=== PATIENT | male | born 1950 | race Caucasian/White ===

== ENCOUNTER 2018-03-10 18:55 | Inpatient (IN) ==
[2018-03-12 08:03] VITALS: BP 120/69
== END 2018-03-12 11:21 | disposition home health service (06) | DRG 948 ==
LOC: N.ED 18:55 → N.EDINP 23:05 → N.5E 23:27
PROVIDERS: ADMIT Internal Medicine; ATTEND Internal Medicine

== ENCOUNTER 2018-04-20 20:18 | Inpatient (IN) ==
[2018-04-20] MEDS ORDERED: ALBUTEROL/IPRATROPIUM 3 ML NEB RESP TX STA (20:48)
[2018-04-20] MEDS ORDERED: METOPROLOL TARTRATE 5 MG/5 ML VIAL IV STA (20:48)
[2018-04-20 21:12] LABS: Basophils % 0.3 % (0.0-0.8); Eosinophils % 0.1 % (0.00-10.9); Hematocrit 43.2 VOL% (42.0-52.0); Hemoglobin 13.9 GM/DL (14.0-18.0); Immature Granulocytes % 0.7 %; Immature Granulocytes Absolute 0.09 #; Lymphocytes # 1.1 10*3/uL (1.4-4.0); Lymphocytes % 8.9 % (21.2-54.2); Mean Corpuscular HGB Conc 32.2 GM/DL (32-36); Mean Corpuscular Hemoglobin 29 PG (27-34); Mean Corpuscular Volume 90.9 FL (87-102); Monocytes # 0.1 10*3/uL (0.11-0.8); Monocytes % 0.6 % (1.7-12.7); Neutrophils # 10.9 10*3/uL (1.4-7.4); Neutrophils % 89.4 % (38.7-73.9); Platelet Count 395 T/CUMM (130-400); Red Blood Count 4.75 MC/CUMM (3.8-5.5); Red Cell Distribution Width 13.6 % (9.3-17.3); White Blood Count 12.2 T/CUMM (4-12)
[2018-04-20 21:22] LABS: PT Patient Result 10.3 SECS; Partial Thromboplastin Time 30.2 SECS (0-40)
[2018-04-20 21:39] LABS: Alanine Aminotransferase 19 U/L (16-61); Albumin 3.5 G/DL (3.4-5.0); Alkaline Phosphatase 75 U/L (45-117); Aspartate Amino Transferase 15 U/L (0-37); Bilirubin,Total < 0.39 MG/DL (0.2-1.0); Blood Urea Nitrogen 31 MG/DL (7-18); Glucose 312 MG/DL (74-106); Osmolality,Calculated 299.3 MOS/KG (273-304); Potassium 4.2 MMOL/L (3.5-5.1); Sodium 141 MMOL/L (136-145); Total Protein 7.7 G/DL (6.4-8.3); Troponin I < 0.015 NG/ML (0.00-0.045)
[2018-04-20] MEDS ORDERED: ACETAMINOPHEN 500 MG TABLET PO PRN (22:07)
[2018-04-20] MEDS ORDERED: GLUCAGON 1 MG VIAL IM PRN (22:07)
[2018-04-20] MEDS ORDERED: DEXTROSE 50% 25 GM/50 ML VIAL IV PRN (22:07)
[2018-04-20] MEDS ORDERED: ONDANSETRON 4 MG/2 ML VIAL IV PRN (22:07)
[2018-04-21] MEDS: ALBUTEROL/IPRATROPIUM 3 ML NEB RESP TX SCH ×4 (00:10→18:52)
[2018-04-21] MEDS: LEVOTHYROXINE 25 MCG TABLET PO SCH (05:04)
[2018-04-21] MEDS: metFORMIN 500 MG TABLET PO SCH ×2 (08:23→16:23)
[2018-04-21] MEDS: INSULIN REGULAR 100 UNIT/ML SUBCUT SCH ×4 (08:23→21:06)
[2018-04-21] MEDS: hydrALAZINE 25 MG TABLET PO SCH ×3 (08:23→16:23)
[2018-04-21] MEDS ORDERED: SODIUM CHLORIDE 0.45% 1,000 ML IV SCH (08:30)
[2018-04-21 08:43] LABS: Basophils % 0.2 % (0.0-0.8); Hematocrit 40.2 VOL% (42.0-52.0); Hemoglobin 12.9 GM/DL (14.0-18.0); Immature Granulocytes % 0.6 %; Immature Granulocytes Absolute 0.07 #; Lymphocytes # 1.4 10*3/uL (1.4-4.0); Lymphocytes % 11.7 % (21.2-54.2); Mean Corpuscular HGB Conc 32.1 GM/DL (32-36); Mean Corpuscular Hemoglobin 29 PG (27-34); Mean Corpuscular Volume 90.7 FL (87-102); Monocytes # 0.4 10*3/uL (0.11-0.8); Monocytes % 3.1 % (1.7-12.7); Neutrophils # 10.1 10*3/uL (1.4-7.4); Neutrophils % 84.4 % (38.7-73.9); Platelet Count 360 T/CUMM (130-400); Red Blood Count 4.43 MC/CUMM (3.8-5.5); Red Cell Distribution Width 13.6 % (9.3-17.3); White Blood Count 11.9 T/CUMM (4-12)
[2018-04-21] MEDS ORDERED: LOSARTAN 25 MG TABLET PO SCH (09:00)
[2018-04-21 09:14] LABS: Calcium 9.2 MG/DL (8.5-10.1); Osmolality,Calculated 295.1 MOS/KG (273-304); Potassium 3.9 MMOL/L (3.5-5.1)
[2018-04-21 09:15] LABS: Risk Ratio 3.7; VLDL CHOLESTEROL 18.6 MG/DL
[2018-04-21] MEDS: INSULIN GLARGINE 100 UNIT/ML SUBCUT SCH (10:19)
[2018-04-21] MEDS: MECLIZINE 25 MG TABLET PO SCH ×2 (10:19→20:38)
[2018-04-21] MEDS: ASPIRIN EC 81 MG TABLET PO SCH (10:20)
[2018-04-21] MEDS ORDERED: hydrALAZINE 20 MG/1 ML VIAL IV PRN (16:47)
[2018-04-21 18:07] LABS: Troponin I < 0.015 NG/ML (0.00-0.045)
[2018-04-21] MEDS: PRAVASTATIN 20 MG TABLET PO SCH (20:38)
[2018-04-21] MEDS: KETOROLAC 15 MG/1 ML VIAL IV SCH (21:48)
[2018-04-22] MEDS: ALBUTEROL/IPRATROPIUM 3 ML NEB RESP TX SCH ×4 (00:25→19:05)
[2018-04-22 04:38] LABS: Basophils % 0.3 % (0.0-0.8); Eosinophils # 0.1 10*3/uL (0.0-0.87); Eosinophils % 0.6 % (0.00-10.9); Hematocrit 35.4 VOL% (42.0-52.0); Hemoglobin 11.8 GM/DL (14.0-18.0); Immature Granulocytes % 0.6 %; Immature Granulocytes Absolute 0.09 #; Lymphocytes # 2.4 10*3/uL (1.4-4.0); Lymphocytes % 16.9 % (21.2-54.2); Mean Corpuscular HGB Conc 33.3 GM/DL (32-36); Mean Corpuscular Hemoglobin 30 PG (27-34); Mean Corpuscular Volume 89.4 FL (87-102); Mean Platelet Volume 10.3 FL (9.6-12.0); Monocytes % 7.3 % (1.7-12.7); Neutrophils # 10.6 10*3/uL (1.4-7.4); Neutrophils % 74.3 % (38.7-73.9); Platelet Count 327 T/CUMM (130-400); Red Blood Count 3.96 MC/CUMM (3.8-5.5); Red Cell Distribution Width 14.1 % (9.3-17.3); White Blood Count 14.3 T/CUMM (4-12)
[2018-04-22 04:57] LABS: Calcium 8.8 MG/DL (8.5-10.1); Osmolality,Calculated 295.8 MOS/KG (273-304); Potassium 3.8 MMOL/L (3.5-5.1)
[2018-04-22] MEDS: LEVOTHYROXINE 25 MCG TABLET PO SCH (05:03)
[2018-04-22] MEDS: KETOROLAC 15 MG/1 ML VIAL IV SCH ×3 (06:12→21:55)
[2018-04-22] MEDS: INSULIN REGULAR 100 UNIT/ML SUBCUT SCH ×4 (08:39→21:55)
[2018-04-22] MEDS ORDERED: REGADENOSON 0.4 MG/5 ML SYRINGE IV ONE (10:54)
[2018-04-22] MEDS: metFORMIN 500 MG TABLET PO SCH ×2 (17:40→18:12)
[2018-04-22] MEDS: INSULIN GLARGINE 100 UNIT/ML SUBCUT SCH (17:40)
[2018-04-22] MEDS: MECLIZINE 25 MG TABLET PO SCH ×2 (17:40→21:54)
[2018-04-22] MEDS: AMOXICILLIN/CLAV 500 MG TABLET PO SCH ×2 (17:40→21:54)
[2018-04-22] MEDS: LOSARTAN 50 MG TABLET PO SCH (18:12)
[2018-04-22] MEDS: LORATADINE 10 MG TABLET PO SCH (18:12)
[2018-04-22] MEDS: ASPIRIN EC 81 MG TABLET PO SCH (18:12)
[2018-04-22] MEDS: predniSONE 10 MG TABLET PO SCH (18:12)
[2018-04-22] MEDS: CHLORTHALIDONE 25 MG TABLET PO SCH (18:12)
[2018-04-22] MEDS: SERTRALINE 25 MG TABLET PO SCH (18:12)
[2018-04-22] MEDS: PRAVASTATIN 20 MG TABLET PO SCH (21:54)
[2018-04-23] MEDS: ALBUTEROL/IPRATROPIUM 3 ML NEB RESP TX SCH ×4 (00:35→19:16)
[2018-04-23 04:15] LABS: Basophils # 0.1 10*3/uL (0.0-0.2); Basophils % 0.4 % (0.0-0.8); Eosinophils # 0.1 10*3/uL (0.0-0.87); Eosinophils % 0.7 % (0.00-10.9); Hemoglobin 12.4 GM/DL (14.0-18.0); Immature Granulocytes Absolute 0.12 #; Lymphocytes # 1.8 10*3/uL (1.4-4.0); Lymphocytes % 14.9 % (21.2-54.2); Mean Corpuscular HGB Conc 31.8 GM/DL (32-36); Mean Corpuscular Hemoglobin 30 PG (27-34); Mean Corpuscular Volume 92.6 FL (87-102); Mean Platelet Volume 10.2 FL (9.6-12.0); Monocytes # 0.7 10*3/uL (0.11-0.8); Monocytes % 5.5 % (1.7-12.7); Neutrophils # 9.2 10*3/uL (1.4-7.4); Neutrophils % 77.5 % (38.7-73.9); Platelet Count 342 T/CUMM (130-400); Red Blood Count 4.21 MC/CUMM (3.8-5.5); Red Cell Distribution Width 14.1 % (9.3-17.3); White Blood Count 11.8 T/CUMM (4-12)
[2018-04-23 04:56] LABS: Calcium 8.8 MG/DL (8.5-10.1); Osmolality,Calculated 294.1 MOS/KG (273-304)
[2018-04-23] MEDS: LEVOTHYROXINE 25 MCG TABLET PO SCH (06:40)
[2018-04-23] MEDS: KETOROLAC 15 MG/1 ML VIAL IV SCH ×3 (06:40→21:31)
[2018-04-23] MEDS ORDERED: hydrALAZINE 10 MG TABLET PO SCH (09:00)
[2018-04-23] MEDS: predniSONE 10 MG TABLET PO SCH (09:28)
[2018-04-23] MEDS: LORATADINE 10 MG TABLET PO SCH (09:28)
[2018-04-23] MEDS: MECLIZINE 25 MG TABLET PO SCH ×2 (09:28→21:30)
[2018-04-23] MEDS: metFORMIN 500 MG TABLET PO SCH ×2 (09:28→17:27)
[2018-04-23] MEDS: LOSARTAN 50 MG TABLET PO SCH (09:29)
[2018-04-23] MEDS: ASPIRIN EC 81 MG TABLET PO SCH (09:29)
[2018-04-23] MEDS: SERTRALINE 25 MG TABLET PO SCH (09:29)
[2018-04-23] MEDS: CHLORTHALIDONE 25 MG TABLET PO SCH (09:29)
[2018-04-23] MEDS: INSULIN GLARGINE 100 UNIT/ML SUBCUT SCH (09:29)
[2018-04-23] MEDS: INSULIN REGULAR 100 UNIT/ML SUBCUT SCH ×4 (09:46→21:34)
[2018-04-23] MEDS: AMOXICILLIN/CLAV 500 MG TABLET PO SCH ×2 (09:47→21:30)
[2018-04-23] MEDS ORDERED: ALUM/MAG/SIMETH/LIDO VISC 1:1 30 ML BOTTLE PO ONE (10:45)
[2018-04-23] MEDS: CARVEDILOL 3.125 MG TABLET PO SCH ×2 (11:43→21:30)
[2018-04-23] MEDS: hydrALAZINE 25 MG TABLET PO SCH ×3 (11:43→21:31)
[2018-04-23] MEDS: PRAVASTATIN 20 MG TABLET PO SCH (21:31)
[2018-04-24] MEDS: ALBUTEROL/IPRATROPIUM 3 ML NEB RESP TX SCH ×3 (02:17→12:15)
[2018-04-24] MEDS: KETOROLAC 15 MG/1 ML VIAL IV SCH ×2 (05:30→14:52)
[2018-04-24] MEDS: LEVOTHYROXINE 25 MCG TABLET PO SCH (05:30)
[2018-04-24 07:05] LABS: Calcium 8.8 MG/DL (8.5-10.1); Potassium 3.6 MMOL/L (3.5-5.1)
[2018-04-24] MEDS ORDERED: FAMOTIDINE 20 MG TABLET PO SCH (09:00)
[2018-04-24] MEDS: MECLIZINE 25 MG TABLET PO SCH (09:11)
[2018-04-24] MEDS: metFORMIN 500 MG TABLET PO SCH (09:11)
[2018-04-24] MEDS: CHLORTHALIDONE 25 MG TABLET PO SCH (09:12)
[2018-04-24] MEDS: ASPIRIN EC 81 MG TABLET PO SCH (09:12)
[2018-04-24] MEDS: SERTRALINE 25 MG TABLET PO SCH (09:12)
[2018-04-24] MEDS: LOSARTAN 50 MG TABLET PO SCH (09:12)
[2018-04-24] MEDS: CARVEDILOL 3.125 MG TABLET PO SCH (09:12)
[2018-04-24] MEDS: INSULIN GLARGINE 100 UNIT/ML SUBCUT SCH (09:12)
[2018-04-24] MEDS: predniSONE 10 MG TABLET PO SCH (09:12)
[2018-04-24] MEDS: hydrALAZINE 25 MG TABLET PO SCH ×2 (09:12→14:52)
[2018-04-24] MEDS: LORATADINE 10 MG TABLET PO SCH (09:18)
[2018-04-24] MEDS: INSULIN REGULAR 100 UNIT/ML SUBCUT SCH ×3 (09:18→15:40)
[2018-04-24] MEDS: AMOXICILLIN/CLAV 500 MG TABLET PO SCH (09:18)
[2018-04-24 16:12] VITALS: BP 165/83
== END 2018-04-24 16:45 | disposition home health service (06) | DRG 313 ==
LOC: N.ED 20:18 → N.EDINP 22:06 → N.TELEN 23:05
PROVIDERS: ADMIT Internal Medicine; ATTEND Internal Medicine

== ENCOUNTER 2018-06-09 13:46 | Inpatient (IN) ==
[2018-06-09] MEDS ORDERED: ONDANSETRON 4 MG/2 ML VIAL IV PRN (14:24)
[2018-06-09] MEDS ORDERED: ACETAMINOPHEN 325 MG TABLET PO PRN (14:24)
[2018-06-09] MEDS ORDERED: traMADol 50 MG TABLET PO PRN (14:29)
[2018-06-09] MEDS ORDERED: MAGNESIUM HYDROXIDE SUSP 30 ML UDCUP PO PRN (14:29)
[2018-06-09] MEDS ORDERED: KETOROLAC 30 MG/1 ML VIAL IV PRN (14:29)
[2018-06-09] MEDS: SODIUM CHLORIDE 0.9% 1,000 ML IV SCH (16:59)
[2018-06-09] MEDS: PIPERACILLIN/TAZOBACTAM 3,375 MG in SODIUM CHLORIDE 0.9% 100 ML IV SCH (16:59)
[2018-06-09 18:32] LABS: Basophils # 0.1 10*3/uL (0.0-0.2); Eosinophils # 0.6 10*3/uL (0.0-0.87); Eosinophils % 5.5 % (0.00-10.9); Hematocrit 40.2 VOL% (42.0-52.0); Immature Granulocytes % 0.4 %; Immature Granulocytes Absolute 0.04 #; Lymphocytes # 2.7 10*3/uL (1.4-4.0); Mean Corpuscular HGB Conc 32.3 GM/DL (32-36); Mean Corpuscular Hemoglobin 29 PG (27-34); Mean Corpuscular Volume 90.3 FL (87-102); Mean Platelet Volume 10.3 FL (9.6-12.0); Monocytes % 9.8 % (1.7-12.7); Neutrophils # 6.2 10*3/uL (1.4-7.4); Neutrophils % 58.3 % (38.7-73.9); Platelet Count 373 T/CUMM (130-400); Red Blood Count 4.45 MC/CUMM (3.8-5.5); Red Cell Distribution Width 13.2 % (9.3-17.3); White Blood Count 10.7 T/CUMM (4-12)
[2018-06-09 18:48] LABS: Apearance,Urine CLEAR (Clear); Bilirubin,Urine Negative (Negative); Blood, Urine Negative (Negative); Glucose,Urine (UA) 150 mg/dL (Negative); Hyaline Casts,Urine 4 /LPF (0-3); Ketones,Urine Negative (Negative); Mucus,Urine Occasional /LPF (Occasional); Nitrite,Urine Negative (Negative); Protein,Urine 100 MG/DL; Urine Color Yellow (Yellow); Urine Specific Gravity 1.017 (1.001-1.035); WBC,Urine <1 /HPF (0-6)
[2018-06-09 19:00] LABS: Alanine Aminotransferase 16 U/L (16-61); Albumin 3.5 G/DL (3.4-5.0); Alkaline Phosphatase 78 U/L (45-117); Aspartate Amino Transferase 11 U/L (0-37); Bilirubin,Total < 0.39 MG/DL (0.2-1.0); Blood Urea Nitrogen 21 MG/DL (7-18); Calcium 8.7 MG/DL (8.5-10.1); Glucose 134 MG/DL (74-106); Potassium 3.3 MMOL/L (3.5-5.1); Sodium 143 MMOL/L (136-145)
[2018-06-09] MEDS: DOCUSATE SODIUM 100 MG CAPSULE PO SCH (21:09)
[2018-06-09] MEDS: ENOXAPARIN 40 MG/0.4 ML SYRINGE SUBCUT SCH (21:09)
[2018-06-09] MEDS: FAMOTIDINE 20 MG TABLET PO SCH (21:09)
[2018-06-09] MEDS: metroNIDAZOLE INJ 250 MG in IV BAG 1 EACH IV SCH (21:09)
[2018-06-09] MEDS ORDERED: POTASSIUM CHLORIDE 20 MEQ TABLET PO ONE (23:41)
[2018-06-09] MEDS ORDERED: ALBUTEROL 2.5 MG/3 ML NEB RESP TX PRN (23:44)
[2018-06-09] MEDS ORDERED: NITROGLYCERIN SL 0.4 MG TABLET SL PRN (23:44)
[2018-06-10] MEDS: PIPERACILLIN/TAZOBACTAM 3,375 MG in SODIUM CHLORIDE 0.9% 100 ML IV SCH ×4 (01:22→23:42)
[2018-06-10] MEDS: SODIUM CHLORIDE 0.9% 1,000 ML IV SCH ×2 (01:24→22:14)
[2018-06-10] MEDS: LEVOTHYROXINE 25 MCG TABLET PO SCH (05:47)
[2018-06-10] MEDS: metroNIDAZOLE INJ 250 MG in IV BAG 1 EACH IV SCH (05:48)
[2018-06-10 06:38] LABS: Basophils # 0.1 10*3/uL (0.0-0.2); Basophils % 1.2 % (0.0-0.8); Eosinophils # 0.7 10*3/uL (0.0-0.87); Eosinophils % 7.3 % (0.00-10.9); Hematocrit 37.5 VOL% (42.0-52.0); Hemoglobin 12.1 GM/DL (14.0-18.0); Immature Granulocytes % 0.4 %; Immature Granulocytes Absolute 0.04 #; Lymphocytes # 3.2 10*3/uL (1.4-4.0); Lymphocytes % 31.7 % (21.2-54.2); Mean Corpuscular HGB Conc 32.3 GM/DL (32-36); Mean Corpuscular Hemoglobin 29 PG (27-34); Mean Corpuscular Volume 90.1 FL (87-102); Mean Platelet Volume 10.1 FL (9.6-12.0); Monocytes % 9.5 % (1.7-12.7); Neutrophils # 5.1 10*3/uL (1.4-7.4); Neutrophils % 49.9 % (38.7-73.9); Platelet Count 337 T/CUMM (130-400); Red Blood Count 4.16 MC/CUMM (3.8-5.5); Red Cell Distribution Width 13.3 % (9.3-17.3); White Blood Count 10.1 T/CUMM (4-12)
[2018-06-10 07:27] LABS: Calcium 8.5 MG/DL (8.5-10.1); Osmolality,Calculated 287.8 MOS/KG (273-304); Potassium 3.4 MMOL/L (3.5-5.1)
[2018-06-10] MEDS: ISOSORBIDE MONONITRATE 30 MG TABLET PO SCH (08:05)
[2018-06-10] MEDS: FAMOTIDINE 20 MG TABLET PO SCH ×2 (08:06→22:13)
[2018-06-10] MEDS: DOCUSATE SODIUM 100 MG CAPSULE PO SCH ×2 (08:06→22:14)
[2018-06-10] MEDS: CHLORTHALIDONE 25 MG TABLET PO SCH (08:06)
[2018-06-10] MEDS: FLUTICASONE/SALMETEROL 250-50 DISKUS 14 DOSE INH SCH ×2 (08:06→22:16)
[2018-06-10] MEDS: CARVEDILOL 3.125 MG TABLET PO SCH ×3 (08:06→22:14)
[2018-06-10] MEDS: hydrALAZINE 25 MG TABLET PO SCH ×4 (08:06→22:14)
[2018-06-10] MEDS: SERTRALINE 25 MG TABLET PO SCH (08:06)
[2018-06-10] MEDS: POTASSIUM CHLORIDE 20 MEQ TABLET PO SCH ×2 (08:10→22:13)
[2018-06-10] MEDS: ASPIRIN EC 81 MG TABLET PO SCH (22:13)
[2018-06-10] MEDS: ENOXAPARIN 40 MG/0.4 ML SYRINGE SUBCUT SCH (22:14)
[2018-06-11] MEDS: LEVOTHYROXINE 25 MCG TABLET PO SCH (06:13)
[2018-06-11] MEDS: SODIUM CHLORIDE 0.9% 1,000 ML IV SCH (06:13)
[2018-06-11 06:59] LABS: Calcium 8.6 MG/DL (8.5-10.1); Osmolality,Calculated 288.7 MOS/KG (273-304); Potassium 3.5 MMOL/L (3.5-5.1)
[2018-06-11] MEDS: POTASSIUM CHLORIDE 20 MEQ TABLET PO SCH ×2 (08:15→20:59)
[2018-06-11] MEDS: hydrALAZINE 25 MG TABLET PO SCH ×3 (08:15→21:00)
[2018-06-11] MEDS: ISOSORBIDE MONONITRATE 30 MG TABLET PO SCH (08:15)
[2018-06-11] MEDS: DOCUSATE SODIUM 100 MG CAPSULE PO SCH ×2 (08:15→21:00)
[2018-06-11] MEDS: CARVEDILOL 3.125 MG TABLET PO SCH ×2 (08:15→21:00)
[2018-06-11] MEDS: PIPERACILLIN/TAZOBACTAM 3,375 MG in SODIUM CHLORIDE 0.9% 100 ML IV SCH ×2 (08:15→15:05)
[2018-06-11] MEDS: SERTRALINE 25 MG TABLET PO SCH (08:15)
[2018-06-11] MEDS: FAMOTIDINE 20 MG TABLET PO SCH ×2 (08:15→20:59)
[2018-06-11] MEDS: CHLORTHALIDONE 25 MG TABLET PO SCH (08:15)
[2018-06-11] MEDS: FLUTICASONE/SALMETEROL 250-50 DISKUS 14 DOSE INH SCH ×2 (08:17→21:00)
[2018-06-11] MEDS: KETOROLAC 30 MG/1 ML VIAL IV SCH ×2 (11:30→17:23)
[2018-06-11] MEDS: ENOXAPARIN 40 MG/0.4 ML SYRINGE SUBCUT SCH (21:00)
[2018-06-11] MEDS: ASPIRIN EC 81 MG TABLET PO SCH (21:00)
[2018-06-12] MEDS: PIPERACILLIN/TAZOBACTAM 3,375 MG in SODIUM CHLORIDE 0.9% 100 ML IV SCH ×3 (01:31→16:35)
[2018-06-12] MEDS: SODIUM CHLORIDE 0.9% 1,000 ML IV SCH ×3 (05:15→17:16)
[2018-06-12] MEDS: KETOROLAC 30 MG/1 ML VIAL IV SCH ×3 (05:16→16:35)
[2018-06-12] MEDS: LEVOTHYROXINE 25 MCG TABLET PO SCH (06:40)
[2018-06-12 06:45] LABS: Calcium 8.8 MG/DL (8.5-10.1); Osmolality,Calculated 288.7 MOS/KG (273-304); Potassium 3.9 MMOL/L (3.5-5.1)
[2018-06-12] MEDS: DOCUSATE SODIUM 100 MG CAPSULE PO SCH (08:36)
[2018-06-12] MEDS: FAMOTIDINE 20 MG TABLET PO SCH (08:36)
[2018-06-12] MEDS: CHLORTHALIDONE 25 MG TABLET PO SCH (08:36)
[2018-06-12] MEDS: SERTRALINE 25 MG TABLET PO SCH (08:37)
[2018-06-12] MEDS: POTASSIUM CHLORIDE 20 MEQ TABLET PO SCH (08:37)
[2018-06-12] MEDS: hydrALAZINE 25 MG TABLET PO SCH ×2 (08:37→17:16)
[2018-06-12] MEDS: ISOSORBIDE MONONITRATE 30 MG TABLET PO SCH (08:37)
[2018-06-12] MEDS: CARVEDILOL 3.125 MG TABLET PO SCH (08:37)
[2018-06-12] MEDS: FLUTICASONE/SALMETEROL 250-50 DISKUS 14 DOSE INH SCH (08:41)
[2018-06-12] MEDS ORDERED: GLUCAGON 1 MG VIAL IM PRN (10:08)
[2018-06-12] MEDS ORDERED: DEXTROSE 50% 25 GM/50 ML VIAL IV PRN (10:08)
[2018-06-12 13:10] VITALS: BP 124/83
== END 2018-06-12 17:12 | disposition home health service (06) | DRG 869 ==
LOC: N.2W 14:39 → N.5E 16:27
PROVIDERS: ADMIT Internal Medicine; ATTEND Internal Medicine

== ENCOUNTER 2020-07-04 21:06 | Inpatient (IN) ==
[2020-07-04] MEDS ORDERED: FUROSEMIDE 40 MG/4 ML VIAL IV STA (21:28)
[2020-07-04] MEDS ORDERED: methylPREDNISolone SOD SUC 125 MG/2 ML VIAL IV STA (21:28)
[2020-07-04] MEDS ORDERED: ONDANSETRON 4 MG/2 ML VIAL IV STA (21:28)
[2020-07-04] MEDS ORDERED: ALBUTEROL NEB SOLN 5 MG/ML 20 ML/BOTTLE CONT NEB SCH (21:30)
[2020-07-04 21:37] LABS: Basophils # 0.1 10*3/uL (0.0-0.2); Eosinophils # 0.9 10*3/uL (0.0-0.87); Eosinophils % 6.3 % (0.00-10.9); Hematocrit 41.2 VOL% (42.0-52.0); Hemoglobin 13.5 GM/DL (14.0-18.0); Immature Granulocytes % 0.5 %; Immature Granulocytes Absolute 0.07 #; Lymphocytes # 2.9 10*3/uL (1.4-4.0); Lymphocytes % 20.3 % (21.2-54.2); Mean Corpuscular HGB Conc 32.8 GM/DL (32-36); Mean Corpuscular Volume 83.9 FL (87-102); Mean Platelet Volume 9.2 FL (9.6-12.0); Monocytes % 7.6 % (1.7-12.7); Neutrophils % 64.3 % (38.7-73.9); Platelet Count 332 T/CUMM (130-400); Red Blood Count 4.91 MC/CUMM (3.8-5.5); Red Cell Distribution Width 14.9 % (9.3-17.3); White Blood Count 14.3 T/CUMM (4-12)
[2020-07-04 21:48] LABS: PT Patient Result 10.6 SECS (9.8-11.9)
[2020-07-04 21:54] LABS: Alanine Aminotransferase 13 U/L (16-61); Albumin 3.6 G/DL (3.4-5.0); Alkaline Phosphatase 69 U/L (45-117); Aspartate Amino Transferase 12 U/L (0-37); Bilirubin,Total < 0.39 MG/DL (0.2-1.0); Blood Urea Nitrogen 19 MG/DL (7-18); Calcium 9.4 MG/DL (8.5-10.1); Estimated Glom Filtration Rate 77 ML/MIN; Glucose 155 MG/DL (74-106); Osmolality,Calculated 279.7 MOS/KG (273-304)
[2020-07-04] MEDS ORDERED: NITROGLYCERIN SL 0.4 MG TABLET SL PRN (23:14)
[2020-07-04] MEDS ORDERED: DEXTROSE 50% 25 GM/50 ML VIAL IV PRN (23:14)
[2020-07-04] MEDS ORDERED: ONDANSETRON 4 MG/2 ML VIAL IV PRN (23:14)
[2020-07-04] MEDS ORDERED: GLUCAGON 1 MG VIAL IM PRN (23:14)
[2020-07-04] MEDS ORDERED: FLUTICASONE/SALMETEROL 250-50 DISKUS 14 DOSE INH PRN (23:14)
[2020-07-04] MEDS ORDERED: MORPHINE 4 MG/1 ML VIAL IV PRN (23:14)
[2020-07-04] MEDS ORDERED: ALBUTEROL 2.5 MG/3 ML NEB RESP TX PRN (23:14)
[2020-07-04] MEDS ORDERED: ACETAMINOPHEN 325 MG TABLET ONE ×2 (23:17)
[2020-07-04] MEDS: ACETAMINOPHEN 325 MG TABLET PO PRN (23:20)
[2020-07-04] MEDS: ALBUTEROL/IPRATROPIUM 3 ML NEB RESP TX SCH (23:45)
[2020-07-05] MEDS: INSULIN REGULAR 100 UNIT/ML SUBCUT SCH ×5 (00:19→23:50)
[2020-07-05] MEDS: cefTRIAXone 1,000 MG in SYRINGE 1 EACH IV SCH ×2 (00:19→23:50)
[2020-07-05] MEDS: SODIUM CHLORIDE 0.9% 1,000 ML IV SCH ×2 (00:20→14:56)
[2020-07-05] MEDS: methylPREDNISolone SOD SUC 40 MG/1 ML VIAL IV SCH ×3 (05:22→21:55)
[2020-07-05] MEDS: ALBUTEROL/IPRATROPIUM 3 ML NEB RESP TX SCH ×6 (06:03→23:28)
[2020-07-05 06:15] LABS: Basophils % 0.3 % (0.0-0.8); Eosinophils % 0.1 % (0.00-10.9); Hematocrit 39.8 VOL% (42.0-52.0); Hemoglobin 12.7 GM/DL (14.0-18.0); Immature Granulocytes % 0.5 %; Immature Granulocytes Absolute 0.05 #; Lymphocytes % 10.3 % (21.2-54.2); Mean Corpuscular HGB Conc 31.9 GM/DL (32-36); Mean Corpuscular Volume 84.5 FL (87-102); Mean Platelet Volume 9.7 FL (9.6-12.0); Monocytes % 0.6 % (1.7-12.7); Neutrophils % 88.2 % (38.7-73.9); Platelet Count 289 T/CUMM (130-400); Red Blood Count 4.71 MC/CUMM (3.8-5.5); Red Cell Distribution Width 14.7 % (9.3-17.3); White Blood Count 9.8 T/CUMM (4-12)
[2020-07-05 06:39] LABS: Alanine Aminotransferase 11 U/L (16-61); Albumin 3.3 G/DL (3.4-5.0); Alkaline Phosphatase 64 U/L (45-117); Aspartate Amino Transferase 10 U/L (0-37); Bilirubin,Total < 0.39 MG/DL (0.2-1.0); Blood Urea Nitrogen 23 MG/DL (7-18); Calcium 9.4 MG/DL (8.5-10.1); Estimated Glom Filtration Rate 63 ML/MIN; Glucose 219 MG/DL (74-106); Osmolality,Calculated 287.5 MOS/KG (273-304); Total Protein 7.6 G/DL (6.4-8.3)
[2020-07-05] MEDS ORDERED: carvediloL 3.125 MG TABLET PO SCH (08:00)
[2020-07-05] MEDS ORDERED: metFORMIN 500 MG TABLET PO SCH (09:00)
[2020-07-05] MEDS ORDERED: NON-FORMULARY MEDICATION (Omeprazole 20 MG capsule,delayed release(DR/EC)) PO SCH (09:00)
[2020-07-05] MEDS: DOCUSATE SODIUM 100 MG CAPSULE PO SCH ×2 (09:15→21:54)
[2020-07-05] MEDS: GLIMEPIRIDE 2 MG TABLET PO SCH (09:15)
[2020-07-05] MEDS: MAGNESIUM OXIDE 400 MG TABLET PO SCH ×2 (09:16→21:54)
[2020-07-05] MEDS: ISOSORBIDE MONONITRATE 30 MG TABLET PO SCH (09:16)
[2020-07-05] MEDS: PANTOPRAZOLE 40 MG VIAL IV SCH (09:16)
[2020-07-05] MEDS: CLOPIDOGREL 75 MG TABLET PO SCH (09:16)
[2020-07-05] MEDS: ENOXAPARIN 40 MG/0.4 ML SYRINGE SUBCUT SCH (09:16)
[2020-07-05] MEDS ORDERED: KETOROLAC 15 MG/1 ML VIAL IV SCH (14:41)
[2020-07-05 14:58] LABS: Troponin I < 0.015 NG/ML (0.00-0.045)
[2020-07-05] MEDS ORDERED: MAGNESIUM SULF RIDER 1 GM in PREMIX 1 EACH IV ONE (15:00)
[2020-07-05] MEDS: KETOROLAC 15 MG/1 ML VIAL IV SCH (17:42)
[2020-07-05] MEDS ORDERED: diphenhydrAMINE CAP 25 MG CAPSULE PO ONE (18:04)
[2020-07-05] MEDS ORDERED: MAGNESIUM SULF RIDER 2 GM in PREMIX 1 EACH IV PRN (18:04)
[2020-07-05] MEDS ORDERED: DIAZEPAM 5 MG TABLET PO ONE (18:04)
[2020-07-05] MEDS ORDERED: POTASSIUM CHLORIDE RIDER 10 MEQ in PREMIX 1 EACH IV PRN (18:04)
[2020-07-05] MEDS ORDERED: SIMVASTATIN 10 MG TABLET PO SCH (21:00)
[2020-07-05] MEDS: ASPIRIN EC 81 MG TABLET PO SCH (21:54)
[2020-07-05] MEDS: LEVOTHYROXINE 50 MCG TABLET PO SCH (21:54)
[2020-07-06] MEDS: KETOROLAC 15 MG/1 ML VIAL IV SCH ×3 (02:24→17:47)
[2020-07-06] MEDS: ALBUTEROL/IPRATROPIUM 3 ML NEB RESP TX SCH ×6 (03:10→23:58)
[2020-07-06] MEDS: SODIUM CHLORIDE 0.9% 1,000 ML IV SCH ×2 (05:05→18:12)
[2020-07-06] MEDS: INSULIN REGULAR 100 UNIT/ML SUBCUT SCH ×3 (06:30→17:45)
[2020-07-06] MEDS: methylPREDNISolone SOD SUC 40 MG/1 ML VIAL IV SCH ×3 (06:31→21:24)
[2020-07-06] MEDS ORDERED: ceFAZolin 1,000 MG in SYRINGE 1 EACH IV ONE (06:42)
[2020-07-06] MEDS ORDERED: ceFAZolin 1,000 MG VIAL IRRIG ONE (06:42)
[2020-07-06 06:45] LABS: Hematocrit 40.3 VOL% (42.0-52.0); Hemoglobin 12.7 GM/DL (14.0-18.0); Immature Granulocytes % 0.6 %; Immature Granulocytes Absolute 0.12 #; Lymphocytes # 1.4 10*3/uL (1.4-4.0); Lymphocytes % 6.7 % (21.2-54.2); Mean Corpuscular HGB Conc 31.5 GM/DL (32-36); Mean Corpuscular Volume 84.7 FL (87-102); Mean Platelet Volume 9.8 FL (9.6-12.0); Monocytes % 4.3 % (1.7-12.7); Neutrophils % 88.4 % (38.7-73.9); Platelet Count 351 T/CUMM (130-400); Red Blood Count 4.76 MC/CUMM (3.8-5.5); Red Cell Distribution Width 15.2 % (9.3-17.3); White Blood Count 20.2 T/CUMM (4-12)
[2020-07-06 07:04] LABS: Band Neutrophils 1 % (0-10); Hypochromasia 1+; Lymphocytes 7 % (20-55); Microcytosis 1+; Ovalocytes Slight; Platelet Estimate Adequate; Segmented Neutrophils 91 % (50-85); Total Cells Counted 100
[2020-07-06 07:11] LABS: Calcium 9.1 MG/DL (8.5-10.1); Osmolality,Calculated 289.5 MOS/KG (273-304)
[2020-07-06 07:13] LABS: Osmolality,Calculated 291.4 MOS/KG (273-304)
[2020-07-06] MEDS ORDERED: DIAZEPAM 5 MG TABLET PO ONE (07:55)
[2020-07-06] MEDS ORDERED: diphenhydrAMINE CAP 25 MG CAPSULE PO ONE (07:55)
[2020-07-06] MEDS ORDERED: LIDOCAINE 1% 20 ML VIAL ONE (08:57)
[2020-07-06] MEDS ORDERED: HEPARIN/NACL 0.9% 2 UNITS/ML 1,000 ML IV ONE (08:57)
[2020-07-06] MEDS ORDERED: MIDAZOLAM 2 MG/2 ML VIAL ONE ×3 (09:13→10:16)
[2020-07-06] MEDS ORDERED: fentaNYL 100 MCG/2 ML VIAL ONE (09:13)
[2020-07-06] MEDS: LOSARTAN 25 MG TABLET PO SCH (09:17)
[2020-07-06] MEDS: GLIMEPIRIDE 2 MG TABLET PO SCH (09:17)
[2020-07-06] MEDS: DOCUSATE SODIUM 100 MG CAPSULE PO SCH ×2 (09:17→21:26)
[2020-07-06] MEDS: PANTOPRAZOLE 40 MG VIAL IV SCH (09:18)
[2020-07-06] MEDS: CLOPIDOGREL 75 MG TABLET PO SCH (09:18)
[2020-07-06] MEDS: ISOSORBIDE MONONITRATE 30 MG TABLET PO SCH (09:18)
[2020-07-06] MEDS: MAGNESIUM OXIDE 400 MG TABLET PO SCH ×2 (09:18→21:26)
[2020-07-06] MEDS ORDERED: HEPARIN 5,000 UNIT/1 ML VIAL ONE (09:45)
[2020-07-06] MEDS: ENOXAPARIN 40 MG/0.4 ML SYRINGE SUBCUT SCH (10:03)
[2020-07-06] MEDS ORDERED: NITROGLYCERIN DRIP 50 MG/250 ML BOTTLE IV ONE (10:05)
[2020-07-06] MEDS ORDERED: hydrALAZINE 20 MG/1 ML VIAL ONE ×2 (10:11→10:53)
[2020-07-06] MEDS ORDERED: ceFAZolin 1,000 MG VIAL ONE (10:27)
[2020-07-06] MEDS ORDERED: HEPARIN/NACL 0.9% 2 UNITS/ML 500 ML IV ONE (10:35)
[2020-07-06] MEDS ORDERED: HYDROmorphone 2 MG/1 ML VIAL ONE (10:49)
[2020-07-06] MEDS ORDERED: CLOPIDOGREL 300 MG TABLET ONE (10:58)
[2020-07-06] MEDS ORDERED: ZALEPLON 5 MG CAPSULE PO PRN (11:09)
[2020-07-06] MEDS: ROSUVASTATIN 20 MG TABLET PO SCH (21:26)
[2020-07-06] MEDS: LEVOTHYROXINE 50 MCG TABLET PO SCH (21:26)
[2020-07-06] MEDS: ASPIRIN EC 81 MG TABLET PO SCH (21:26)
[2020-07-06] MEDS: cefTRIAXone 1,000 MG in SYRINGE 1 EACH IV SCH (23:15)
[2020-07-07] MEDS: KETOROLAC 15 MG/1 ML VIAL IV SCH (01:20)
[2020-07-07] MEDS: INSULIN REGULAR 100 UNIT/ML SUBCUT SCH ×4 (01:20→19:10)
[2020-07-07] MEDS: ALBUTEROL/IPRATROPIUM 3 ML NEB RESP TX SCH ×5 (03:40→19:25)
[2020-07-07 05:54] LABS: Basophils % 0.1 % (0.0-0.8); Hematocrit 34.2 VOL% (42.0-52.0); Hemoglobin 10.8 GM/DL (14.0-18.0); Immature Granulocytes % 0.8 %; Immature Granulocytes Absolute 0.11 #; Lymphocytes # 1.1 10*3/uL (1.4-4.0); Lymphocytes % 7.7 % (21.2-54.2); Mean Corpuscular HGB Conc 31.6 GM/DL (32-36); Mean Corpuscular Volume 85.7 FL (87-102); Mean Platelet Volume 9.9 FL (9.6-12.0); Monocytes % 5.5 % (1.7-12.7); Neutrophils % 85.9 % (38.7-73.9); Platelet Count 276 T/CUMM (130-400); Red Blood Count 3.99 MC/CUMM (3.8-5.5); Red Cell Distribution Width 15.4 % (9.3-17.3); White Blood Count 13.9 T/CUMM (4-12)
[2020-07-07 06:11] LABS: Calcium 8.2 MG/DL (8.5-10.1)
[2020-07-07] MEDS: methylPREDNISolone SOD SUC 40 MG/1 ML VIAL IV SCH ×3 (06:12→21:02)
[2020-07-07] MEDS: SODIUM CHLORIDE 0.9% 1,000 ML IV SCH ×2 (06:53→21:06)
[2020-07-07] MEDS: CLOPIDOGREL 75 MG TABLET PO SCH (08:37)
[2020-07-07] MEDS: LOSARTAN 25 MG TABLET PO SCH (08:37)
[2020-07-07] MEDS: carvediloL 3.125 MG TABLET PO SCH ×2 (08:37→21:03)
[2020-07-07] MEDS: ISOSORBIDE MONONITRATE 30 MG TABLET PO SCH (08:37)
[2020-07-07] MEDS: MAGNESIUM OXIDE 400 MG TABLET PO SCH ×2 (08:37→21:03)
[2020-07-07] MEDS: DOCUSATE SODIUM 100 MG CAPSULE PO SCH ×2 (08:37→21:03)
[2020-07-07] MEDS: PANTOPRAZOLE 40 MG VIAL IV SCH (08:38)
[2020-07-07] MEDS: ENOXAPARIN 40 MG/0.4 ML SYRINGE SUBCUT SCH (08:38)
[2020-07-07] MEDS: GLIMEPIRIDE 2 MG TABLET PO SCH (08:41)
[2020-07-07] MEDS: LEVOTHYROXINE 50 MCG TABLET PO SCH (21:03)
[2020-07-07] MEDS: ASPIRIN EC 81 MG TABLET PO SCH (21:03)
[2020-07-07] MEDS: ROSUVASTATIN 20 MG TABLET PO SCH (21:03)
[2020-07-08] MEDS: cefTRIAXone 1,000 MG in SYRINGE 1 EACH IV SCH ×3 (00:14→22:43)
[2020-07-08] MEDS: INSULIN REGULAR 100 UNIT/ML SUBCUT SCH ×4 (00:33→17:20)
[2020-07-08] MEDS: ALBUTEROL/IPRATROPIUM 3 ML NEB RESP TX SCH ×6 (03:00→23:44)
[2020-07-08 05:16] LABS: Basophils % 0.1 % (0.0-0.8); Hematocrit 32.7 VOL% (42.0-52.0); Hemoglobin 10.3 GM/DL (14.0-18.0); Immature Granulocytes % 0.9 %; Immature Granulocytes Absolute 0.09 #; Lymphocytes # 1.1 10*3/uL (1.4-4.0); Lymphocytes % 10.4 % (21.2-54.2); Mean Corpuscular HGB Conc 31.5 GM/DL (32-36); Mean Corpuscular Volume 85.6 FL (87-102); Mean Platelet Volume 9.9 FL (9.6-12.0); Monocytes % 5.9 % (1.7-12.7); Neutrophils % 82.7 % (38.7-73.9); Platelet Count 250 T/CUMM (130-400); Red Blood Count 3.82 MC/CUMM (3.8-5.5); Red Cell Distribution Width 15.6 % (9.3-17.3); White Blood Count 10.5 T/CUMM (4-12)
[2020-07-08] MEDS: methylPREDNISolone SOD SUC 40 MG/1 ML VIAL IV SCH ×3 (05:45→21:30)
[2020-07-08 06:00] LABS: Calcium 7.8 MG/DL (8.5-10.1); Osmolality,Calculated 294.8 MOS/KG (273-304)
[2020-07-08] MEDS: carvediloL 3.125 MG TABLET PO SCH ×2 (09:21→21:30)
[2020-07-08] MEDS: CLOPIDOGREL 75 MG TABLET PO SCH (09:22)
[2020-07-08] MEDS: MAGNESIUM OXIDE 400 MG TABLET PO SCH ×2 (09:22→21:30)
[2020-07-08] MEDS: ISOSORBIDE MONONITRATE 30 MG TABLET PO SCH (09:22)
[2020-07-08] MEDS: GLIMEPIRIDE 2 MG TABLET PO SCH (09:24)
[2020-07-08] MEDS: PANTOPRAZOLE 40 MG VIAL IV SCH (09:25)
[2020-07-08] MEDS: LOSARTAN 25 MG TABLET PO SCH (09:25)
[2020-07-08] MEDS: DOCUSATE SODIUM 100 MG CAPSULE PO SCH ×2 (09:25→21:30)
[2020-07-08] MEDS: ENOXAPARIN 40 MG/0.4 ML SYRINGE SUBCUT SCH (09:28)
[2020-07-08] MEDS: DEXTROMETHORPHAN ER 6 MG/ML 90 ML/BOTTLE PO SCH ×2 (11:36→21:30)
[2020-07-08] MEDS: SODIUM CHLORIDE 0.9% 1,000 ML IV SCH (11:42)
[2020-07-08] MEDS: hydrALAZINE 20 MG/1 ML VIAL IV PRN ×2 (12:07→18:51)
[2020-07-08] MEDS: ACETAMINOPHEN 325 MG TABLET PO PRN (13:11)
[2020-07-08] MEDS ORDERED: KETOROLAC 15 MG/1 ML VIAL IV ONE (14:31)
[2020-07-08] MEDS: LEVOTHYROXINE 50 MCG TABLET PO SCH (21:30)
[2020-07-08] MEDS: ASPIRIN EC 81 MG TABLET PO SCH (21:31)
[2020-07-08] MEDS: ROSUVASTATIN 20 MG TABLET PO SCH (21:31)
[2020-07-09] MEDS: SODIUM CHLORIDE 0.9% 1,000 ML IV SCH (00:15)
[2020-07-09] MEDS: hydrALAZINE 20 MG/1 ML VIAL IV PRN (00:30)
[2020-07-09] MEDS: INSULIN REGULAR 100 UNIT/ML SUBCUT SCH ×4 (00:45→18:31)
[2020-07-09] MEDS: ALBUTEROL/IPRATROPIUM 3 ML NEB RESP TX SCH ×5 (04:33→19:01)
[2020-07-09] MEDS: methylPREDNISolone SOD SUC 40 MG/1 ML VIAL IV SCH ×3 (07:08→21:30)
[2020-07-09] MEDS: LOSARTAN 25 MG TABLET PO SCH (09:38)
[2020-07-09] MEDS: MAGNESIUM OXIDE 400 MG TABLET PO SCH ×2 (09:38→21:04)
[2020-07-09] MEDS: ISOSORBIDE MONONITRATE 30 MG TABLET PO SCH (09:38)
[2020-07-09] MEDS: GLIMEPIRIDE 2 MG TABLET PO SCH (09:39)
[2020-07-09] MEDS: carvediloL 3.125 MG TABLET PO SCH ×2 (09:39→21:03)
[2020-07-09] MEDS: CLOPIDOGREL 75 MG TABLET PO SCH (09:39)
[2020-07-09] MEDS: DEXTROMETHORPHAN ER 6 MG/ML 90 ML/BOTTLE PO SCH ×2 (09:40→21:03)
[2020-07-09] MEDS: ENOXAPARIN 40 MG/0.4 ML SYRINGE SUBCUT SCH (09:40)
[2020-07-09] MEDS: DOCUSATE SODIUM 100 MG CAPSULE PO SCH ×2 (09:41→21:04)
[2020-07-09] MEDS: PANTOPRAZOLE 40 MG VIAL IV SCH (09:43)
[2020-07-09] MEDS: ROSUVASTATIN 20 MG TABLET PO SCH (21:03)
[2020-07-09] MEDS: ASPIRIN EC 81 MG TABLET PO SCH (21:04)
[2020-07-09] MEDS: LEVOTHYROXINE 50 MCG TABLET PO SCH (21:04)
[2020-07-10] MEDS: cefTRIAXone 1,000 MG in SYRINGE 1 EACH IV SCH ×2 (00:36→23:18)
[2020-07-10] MEDS: hydrALAZINE 20 MG/1 ML VIAL IV PRN ×2 (00:43→08:57)
[2020-07-10] MEDS: INSULIN REGULAR 100 UNIT/ML SUBCUT SCH ×4 (00:44→17:55)
[2020-07-10] MEDS: ALBUTEROL/IPRATROPIUM 3 ML NEB RESP TX SCH ×5 (01:05→19:20)
[2020-07-10] MEDS: methylPREDNISolone SOD SUC 40 MG/1 ML VIAL IV SCH ×3 (05:25→21:06)
[2020-07-10] MEDS: SODIUM CHLORIDE 0.9% 1,000 ML IV SCH ×2 (05:26→17:54)
[2020-07-10 05:36] LABS: Basophils % 0.1 % (0.0-0.8); Hematocrit 34.6 VOL% (42.0-52.0); Immature Granulocytes % 1.4 %; Immature Granulocytes Absolute 0.15 #; Lymphocytes # 1.1 10*3/uL (1.4-4.0); Lymphocytes % 10.2 % (21.2-54.2); Mean Corpuscular HGB Conc 31.8 GM/DL (32-36); Mean Corpuscular Volume 84.8 FL (87-102); Mean Platelet Volume 10.3 FL (9.6-12.0); Monocytes % 6.1 % (1.7-12.7); Neutrophils % 82.2 % (38.7-73.9); Platelet Count 265 T/CUMM (130-400); Red Blood Count 4.08 MC/CUMM (3.8-5.5); Red Cell Distribution Width 15.1 % (9.3-17.3); White Blood Count 10.7 T/CUMM (4-12)
[2020-07-10 05:51] LABS: Calcium 8.5 MG/DL (8.5-10.1); Osmolality,Calculated 287.4 MOS/KG (273-304)
[2020-07-10] MEDS: CLOPIDOGREL 75 MG TABLET PO SCH (08:52)
[2020-07-10] MEDS: carvediloL 3.125 MG TABLET PO SCH ×2 (08:52→21:06)
[2020-07-10] MEDS: LOSARTAN 25 MG TABLET PO SCH (08:52)
[2020-07-10] MEDS: MAGNESIUM OXIDE 400 MG TABLET PO SCH ×2 (08:52→21:05)
[2020-07-10] MEDS: DEXTROMETHORPHAN ER 6 MG/ML 90 ML/BOTTLE PO SCH ×2 (08:53→21:05)
[2020-07-10] MEDS: ISOSORBIDE MONONITRATE 30 MG TABLET PO SCH (08:53)
[2020-07-10] MEDS: DOCUSATE SODIUM 100 MG CAPSULE PO SCH ×2 (08:55→21:06)
[2020-07-10] MEDS: GLIMEPIRIDE 2 MG TABLET PO SCH (08:55)
[2020-07-10] MEDS: PANTOPRAZOLE 40 MG VIAL IV SCH (08:56)
[2020-07-10] MEDS: ENOXAPARIN 40 MG/0.4 ML SYRINGE SUBCUT SCH (08:59)
[2020-07-10] MEDS ORDERED: ISOSORBIDE MONONITRATE 60 MG TABLET PO SCH (13:39)
[2020-07-10] MEDS: hydrALAZINE 25 MG TABLET PO SCH ×2 (14:14→21:06)
[2020-07-10] MEDS ORDERED: LOSARTAN 25 MG TABLET PO SCH (14:52)
[2020-07-10] MEDS: BUDESONIDE 0.25 MG/2 ML NEB RESP TX SCH (19:20)
[2020-07-10] MEDS: ASPIRIN EC 81 MG TABLET PO SCH (21:05)
[2020-07-10] MEDS: ROSUVASTATIN 20 MG TABLET PO SCH (21:05)
[2020-07-10] MEDS: LEVOTHYROXINE 50 MCG TABLET PO SCH (21:06)
[2020-07-11] MEDS: INSULIN REGULAR 100 UNIT/ML SUBCUT SCH ×5 (00:02→16:04)
[2020-07-11] MEDS: ALBUTEROL/IPRATROPIUM 3 ML NEB RESP TX SCH ×3 (00:02→13:20)
[2020-07-11] MEDS: methylPREDNISolone SOD SUC 40 MG/1 ML VIAL IV SCH ×2 (05:03→13:05)
[2020-07-11] MEDS ORDERED: GLIMEPIRIDE 2 MG TABLET PO SCH (08:00)
[2020-07-11] MEDS ORDERED: INSULIN GLARGINE 100 UNIT/ML SUBCUT SCH (08:00)
[2020-07-11] MEDS: BUDESONIDE 0.25 MG/2 ML NEB RESP TX SCH (08:05)
[2020-07-11] MEDS: DEXTROMETHORPHAN ER 6 MG/ML 90 ML/BOTTLE PO SCH (08:34)
[2020-07-11] MEDS: PANTOPRAZOLE 40 MG VIAL IV SCH (08:35)
[2020-07-11] MEDS: ENOXAPARIN 40 MG/0.4 ML SYRINGE SUBCUT SCH (08:36)
[2020-07-11] MEDS: CLOPIDOGREL 75 MG TABLET PO SCH (08:37)
[2020-07-11] MEDS: MAGNESIUM OXIDE 400 MG TABLET PO SCH (08:37)
[2020-07-11] MEDS: DOCUSATE SODIUM 100 MG CAPSULE PO SCH (08:38)
[2020-07-11] MEDS: hydrALAZINE 25 MG TABLET PO SCH (08:38)
[2020-07-11] MEDS: carvediloL 3.125 MG TABLET PO SCH (08:38)
[2020-07-11] MEDS: SODIUM CHLORIDE 0.9% 1,000 ML IV SCH (08:39)
[2020-07-11 10:57] LABS: Basophils % 0.1 % (0.0-0.8); Hematocrit 33.5 VOL% (42.0-52.0); Hemoglobin 10.8 GM/DL (14.0-18.0); Immature Granulocytes % 2.3 %; Immature Granulocytes Absolute 0.28 #; Lymphocytes # 0.9 10*3/uL (1.4-4.0); Lymphocytes % 7.1 % (21.2-54.2); Mean Corpuscular HGB Conc 32.2 GM/DL (32-36); Mean Corpuscular Volume 83.8 FL (87-102); Mean Platelet Volume 10.1 FL (9.6-12.0); Neutrophils % 86.5 % (38.7-73.9); Platelet Count 296 T/CUMM (130-400); Red Cell Distribution Width 15.3 % (9.3-17.3); White Blood Count 12.3 T/CUMM (4-12)
[2020-07-11 11:26] LABS: Calcium 8.1 MG/DL (8.5-10.1); Osmolality,Calculated 294.4 MOS/KG (273-304)
[2020-07-11 15:53] VITALS: BP 109/57
== END 2020-07-11 18:09 | disposition home health service (06) | DRG 247 ==
LOC: N.EDINP 21:06 → N.ED 21:06 → N.EDINP 23:37 → N.3E 23:47 → N.TELEN 07-06 11:42
PROVIDERS: ADMIT Internal Medicine; ATTEND Internal Medicine
PROC: CLCCHCL (ICD-10-PCS; 2020-07-06 08:45)

== ENCOUNTER 2020-10-04 16:43 | Inpatient (IN) ==
[2020-10-04] MEDS ORDERED: MAGNESIUM HYDROXIDE SUSP 30 ML UDCUP PO PRN (16:55)
[2020-10-04] MEDS ORDERED: ONDANSETRON 4 MG/2 ML VIAL IV PRN (16:55)
[2020-10-04] MEDS ORDERED: traMADol 50 MG TABLET PO PRN (16:55)
[2020-10-04] MEDS ORDERED: MORPHINE 4 MG/1 ML VIAL IV PRN (16:55)
[2020-10-04] MEDS ORDERED: ACETAMINOPHEN 325 MG TABLET PO PRN (16:55)
[2020-10-04 18:00] LABS: Basophils # 0.1 10*3/uL (0.0-0.2); Basophils % 1.1 % (0.0-0.8); Eosinophils # 0.7 10*3/uL (0.0-0.87); Eosinophils % 5.7 % (0.00-10.9); Hematocrit 43.9 VOL% (42.0-52.0); Hemoglobin 13.5 GM/DL (14.0-18.0); Immature Granulocytes % 0.6 %; Immature Granulocytes Absolute 0.07 #; Lymphocytes # 2.6 10*3/uL (1.4-4.0); Lymphocytes % 21.1 % (21.2-54.2); Mean Corpuscular HGB Conc 30.8 GM/DL (32-36); Mean Corpuscular Volume 88.7 FL (87-102); Mean Platelet Volume 9.4 FL (9.6-12.0); Monocytes % 8.2 % (1.7-12.7); Neutrophils % 63.3 % (38.7-73.9); Platelet Count 375 T/CUMM (130-400); Red Blood Count 4.95 MC/CUMM (3.8-5.5); Red Cell Distribution Width 15.1 % (9.3-17.3); White Blood Count 12.2 T/CUMM (4-12)
[2020-10-04] MEDS: BUDESONIDE 0.25 MG/2 ML NEB RESP TX SCH (18:22)
[2020-10-04] MEDS: ALBUTEROL/IPRATROPIUM 3 ML NEB RESP TX SCH ×2 (18:22→18:35)
[2020-10-04 18:26] LABS: Alanine Aminotransferase 16 U/L (16-61); Albumin 3.5 G/DL (3.4-5.0); Alkaline Phosphatase 78 U/L (45-117); Aspartate Amino Transferase 17 U/L (0-37); Bilirubin,Total < 0.39 MG/DL (0.2-1.0); Blood Urea Nitrogen 21 MG/DL (7-18); Calcium 9.4 MG/DL (8.5-10.1); Carbon Dioxide 26 MMOL/L (21-32); Estimated Glom Filtration Rate 79 ML/MIN; Glucose 94 MG/DL (74-106); Osmolality,Calculated 281.4 MOS/KG (273-304); Sodium 140 MMOL/L (136-145); Total Protein 8.2 G/DL (6.4-8.3)
[2020-10-04] MEDS ORDERED: methylPREDNISolone SOD SUC 40 MG/1 ML VIAL IV SCH (18:30)
[2020-10-04 18:39] LABS: Troponin I < 0.015 NG/ML (0.00-0.045)
[2020-10-04] MEDS: SODIUM CHLORIDE 0.9% 1,000 ML IV SCH (18:41)
[2020-10-04] MEDS ORDERED: NITROGLYCERIN SL 0.4 MG TABLET SL PRN ×2 (19:41→21:51)
[2020-10-04] MEDS: methylPREDNISolone SOD SUC 40 MG/1 ML VIAL IV SCH (21:10)
[2020-10-04] MEDS: FAMOTIDINE 20 MG TABLET PO SCH (21:10)
[2020-10-04] MEDS: ENOXAPARIN 40 MG/0.4 ML SYRINGE SUBCUT SCH (21:10)
[2020-10-04] MEDS: DOCUSATE SODIUM 100 MG CAPSULE PO SCH (21:10)
[2020-10-04 21:32] LABS: Troponin I < 0.015 NG/ML (0.00-0.045)
[2020-10-05] MEDS: ALBUTEROL/IPRATROPIUM 3 ML NEB RESP TX SCH ×4 (00:29→19:44)
[2020-10-05] MEDS: MAGNESIUM OXIDE 400 MG TABLET PO SCH ×3 (00:39→21:23)
[2020-10-05] MEDS: carvediloL 3.125 MG TABLET PO SCH ×3 (00:39→16:19)
[2020-10-05] MEDS: ASPIRIN EC 81 MG TABLET PO SCH ×2 (00:39→21:23)
[2020-10-05] MEDS: ROSUVASTATIN 20 MG TABLET PO SCH ×2 (00:40→21:23)
[2020-10-05] MEDS: INSULIN REGULAR 100 UNIT/ML SUBCUT SCH ×5 (00:52→23:18)
[2020-10-05] MEDS: INSULIN GLARGINE 100 UNIT/ML SUBCUT SCH ×2 (00:53→23:03)
[2020-10-05 01:06] LABS: Troponin I < 0.015 NG/ML (0.00-0.045)
[2020-10-05] MEDS: methylPREDNISolone SOD SUC 40 MG/1 ML VIAL IV SCH ×3 (05:47→23:19)
[2020-10-05] MEDS: LEVOTHYROXINE 75 MCG TABLET PO SCH (05:50)
[2020-10-05 06:13] LABS: Calcium 8.6 MG/DL (8.5-10.1); Osmolality,Calculated 285.5 MOS/KG (273-304); Potassium 4.4 MMOL/L (3.5-5.1); Risk Ratio 3.06
[2020-10-05] MEDS: BUDESONIDE 0.25 MG/2 ML NEB RESP TX SCH ×2 (07:11→19:44)
[2020-10-05] MEDS ORDERED: DEXTROSE 50% 25 GM/50 ML VIAL IV PRN (08:18)
[2020-10-05] MEDS ORDERED: GLUCAGON 1 MG VIAL IM PRN (08:18)
[2020-10-05] MEDS: cefTRIAXone 500 MG in SYRINGE 1 EACH IV SCH (08:48)
[2020-10-05] MEDS: SODIUM CHLORIDE 0.9% 1,000 ML IV SCH (08:48)
[2020-10-05] MEDS: GLIMEPIRIDE 2 MG TABLET PO SCH ×2 (08:48→16:19)
[2020-10-05] MEDS: AZITHROMYCIN INJ 500 MG in SODIUM CHLORIDE 0.9% 250 ML IV SCH (08:48)
[2020-10-05] MEDS: ISOSORBIDE MONONITRATE 30 MG TABLET PO SCH (08:49)
[2020-10-05] MEDS: FAMOTIDINE 20 MG TABLET PO SCH ×2 (08:49→21:23)
[2020-10-05] MEDS: DOCUSATE SODIUM 100 MG CAPSULE PO SCH ×2 (08:49→21:31)
[2020-10-05] MEDS: CLOPIDOGREL 75 MG TABLET PO SCH (08:49)
[2020-10-05] MEDS ORDERED: ALBUTEROL/IPRATROPIUM 3 ML NEB RESP TX PRN (20:50)
[2020-10-05] MEDS: BENZONATATE 100 MG CAPSULE PO SCH (21:23)
[2020-10-05] MEDS: ENOXAPARIN 40 MG/0.4 ML SYRINGE SUBCUT SCH (21:24)
[2020-10-05] MEDS: KETOROLAC 15 MG/1 ML VIAL IV SCH (22:00)
[2020-10-05] MEDS: FORMOTEROL 20 MCG/2 ML NEB RESP TX SCH (23:15)
[2020-10-06] MEDS: methylPREDNISolone SOD SUC 40 MG/1 ML VIAL IV SCH ×3 (04:23→21:59)
[2020-10-06 05:46] LABS: Basophils # 0.1 10*3/uL (0.0-0.2); Basophils % 0.4 % (0.0-0.8); Hematocrit 35.4 VOL% (42.0-52.0); Immature Granulocytes % 0.5 %; Immature Granulocytes Absolute 0.07 #; Lymphocytes # 1.8 10*3/uL (1.4-4.0); Lymphocytes % 13.6 % (21.2-54.2); Mean Corpuscular HGB Conc 31.1 GM/DL (32-36); Mean Corpuscular Volume 87.4 FL (87-102); Mean Platelet Volume 10.2 FL (9.6-12.0); Monocytes % 8.7 % (1.7-12.7); Neutrophils % 76.8 % (38.7-73.9); Platelet Count 345 T/CUMM (130-400); Red Blood Count 4.05 MC/CUMM (3.8-5.5); Red Cell Distribution Width 15.1 % (9.3-17.3); White Blood Count 13.3 T/CUMM (4-12)
[2020-10-06 06:12] LABS: Calcium 8.5 MG/DL (8.5-10.1); Osmolality,Calculated 294.1 MOS/KG (273-304); Potassium 3.9 MMOL/L (3.5-5.1)
[2020-10-06] MEDS: LEVOTHYROXINE 75 MCG TABLET PO SCH (06:26)
[2020-10-06] MEDS: KETOROLAC 15 MG/1 ML VIAL IV SCH ×3 (06:27→22:04)
[2020-10-06] MEDS: BUDESONIDE 0.25 MG/2 ML NEB RESP TX SCH ×2 (07:15→19:20)
[2020-10-06] MEDS: FORMOTEROL 20 MCG/2 ML NEB RESP TX SCH ×2 (07:15→19:20)
[2020-10-06] MEDS: INSULIN REGULAR 100 UNIT/ML SUBCUT SCH ×4 (08:37→21:57)
[2020-10-06] MEDS: AZITHROMYCIN INJ 500 MG in SODIUM CHLORIDE 0.9% 250 ML IV SCH (08:38)
[2020-10-06] MEDS: MAGNESIUM OXIDE 400 MG TABLET PO SCH ×2 (08:39→21:57)
[2020-10-06] MEDS: carvediloL 3.125 MG TABLET PO SCH ×2 (08:39→16:02)
[2020-10-06] MEDS: FAMOTIDINE 20 MG TABLET PO SCH ×2 (08:40→21:57)
[2020-10-06] MEDS: BENZONATATE 100 MG CAPSULE PO SCH ×3 (08:40→21:57)
[2020-10-06] MEDS: CLOPIDOGREL 75 MG TABLET PO SCH (08:40)
[2020-10-06] MEDS: cefTRIAXone 500 MG in SYRINGE 1 EACH IV SCH (08:40)
[2020-10-06] MEDS: ISOSORBIDE MONONITRATE 30 MG TABLET PO SCH (08:40)
[2020-10-06] MEDS: GLIMEPIRIDE 2 MG TABLET PO SCH ×2 (08:40→16:02)
[2020-10-06] MEDS: SODIUM CHLORIDE 0.9% 1,000 ML IV SCH (08:41)
[2020-10-06] MEDS: DOCUSATE SODIUM 100 MG CAPSULE PO SCH ×2 (08:47→21:59)
[2020-10-06] MEDS: ALPRAZolam 0.25 MG TABLET PO SCH ×2 (14:07→21:57)
[2020-10-06] MEDS: INSULIN GLARGINE 100 UNIT/ML SUBCUT SCH ×2 (21:56→22:08)
[2020-10-06] MEDS: ENOXAPARIN 40 MG/0.4 ML SYRINGE SUBCUT SCH (21:57)
[2020-10-06] MEDS: ASPIRIN EC 81 MG TABLET PO SCH (21:57)
[2020-10-06] MEDS: ROSUVASTATIN 20 MG TABLET PO SCH (21:57)
[2020-10-07] MEDS: methylPREDNISolone SOD SUC 40 MG/1 ML VIAL IV SCH ×4 (06:00→23:00)
[2020-10-07] MEDS: LEVOTHYROXINE 75 MCG TABLET PO SCH (06:00)
[2020-10-07 06:05] LABS: Basophils % 0.2 % (0.0-0.8); Immature Granulocytes % 0.9 %; Immature Granulocytes Absolute 0.13 #; Lymphocytes # 1.1 10*3/uL (1.4-4.0); Lymphocytes % 7.4 % (21.2-54.2); Mean Corpuscular HGB Conc 30.6 GM/DL (32-36); Mean Corpuscular Volume 88.9 FL (87-102); Mean Platelet Volume 10.2 FL (9.6-12.0); Monocytes % 3.6 % (1.7-12.7); Neutrophils % 87.9 % (38.7-73.9); Platelet Count 345 T/CUMM (130-400); Red Blood Count 4.05 MC/CUMM (3.8-5.5); Red Cell Distribution Width 15.4 % (9.3-17.3); White Blood Count 14.6 T/CUMM (4-12)
[2020-10-07] MEDS: KETOROLAC 15 MG/1 ML VIAL IV SCH ×3 (06:11→21:56)
[2020-10-07 06:20] LABS: Calcium 8.4 MG/DL (8.5-10.1)
[2020-10-07] MEDS: FORMOTEROL 20 MCG/2 ML NEB RESP TX SCH ×2 (07:09→19:37)
[2020-10-07] MEDS: BUDESONIDE 0.25 MG/2 ML NEB RESP TX SCH ×2 (07:09→19:37)
[2020-10-07] MEDS: SODIUM CHLORIDE 0.9% 1,000 ML IV SCH ×3 (08:42→12:16)
[2020-10-07] MEDS: AZITHROMYCIN INJ 500 MG in SODIUM CHLORIDE 0.9% 250 ML IV SCH (08:48)
[2020-10-07] MEDS: cefTRIAXone 500 MG in SYRINGE 1 EACH IV SCH (09:07)
[2020-10-07] MEDS: CLOPIDOGREL 75 MG TABLET PO SCH (09:08)
[2020-10-07] MEDS: BENZONATATE 100 MG CAPSULE PO SCH ×3 (09:08→21:56)
[2020-10-07] MEDS: carvediloL 3.125 MG TABLET PO SCH ×2 (09:08→16:35)
[2020-10-07] MEDS: DOCUSATE SODIUM 100 MG CAPSULE PO SCH ×2 (09:08→21:56)
[2020-10-07] MEDS: ISOSORBIDE MONONITRATE 30 MG TABLET PO SCH (09:08)
[2020-10-07] MEDS: ALPRAZolam 0.25 MG TABLET PO SCH ×2 (09:08→21:56)
[2020-10-07] MEDS: GLIMEPIRIDE 2 MG TABLET PO SCH ×2 (09:08→16:35)
[2020-10-07] MEDS: MAGNESIUM OXIDE 400 MG TABLET PO SCH ×2 (09:09→21:56)
[2020-10-07] MEDS: FAMOTIDINE 20 MG TABLET PO SCH ×2 (09:09→21:56)
[2020-10-07] MEDS: INSULIN REGULAR 100 UNIT/ML SUBCUT SCH ×4 (09:09→21:56)
[2020-10-07] MEDS: ALBUTEROL/IPRATROPIUM 3 ML NEB RESP TX SCH ×3 (15:14→23:46)
[2020-10-07] MEDS: ROSUVASTATIN 20 MG TABLET PO SCH (21:56)
[2020-10-07] MEDS: ASPIRIN EC 81 MG TABLET PO SCH (21:56)
[2020-10-07] MEDS: ENOXAPARIN 40 MG/0.4 ML SYRINGE SUBCUT SCH (21:57)
[2020-10-08] MEDS: SODIUM CHLORIDE 0.9% 1,000 ML IV SCH ×2 (00:55→15:25)
[2020-10-08] MEDS: ALBUTEROL/IPRATROPIUM 3 ML NEB RESP TX SCH ×6 (03:54→23:18)
[2020-10-08 05:58] LABS: Basophils % 0.1 % (0.0-0.8); Hematocrit 34.3 VOL% (42.0-52.0); Hemoglobin 10.8 GM/DL (14.0-18.0); Immature Granulocytes % 1.9 %; Immature Granulocytes Absolute 0.22 #; Lymphocytes # 0.8 10*3/uL (1.4-4.0); Lymphocytes % 6.9 % (21.2-54.2); Mean Corpuscular HGB Conc 31.5 GM/DL (32-36); Mean Corpuscular Volume 86.8 FL (87-102); Mean Platelet Volume 9.9 FL (9.6-12.0); Monocytes % 3.5 % (1.7-12.7); Neutrophils % 87.6 % (38.7-73.9); Platelet Count 296 T/CUMM (130-400); Red Blood Count 3.95 MC/CUMM (3.8-5.5); Red Cell Distribution Width 15.3 % (9.3-17.3); White Blood Count 11.7 T/CUMM (4-12)
[2020-10-08 06:17] LABS: Calcium 8.1 MG/DL (8.5-10.1); Potassium 3.7 MMOL/L (3.5-5.1)
[2020-10-08] MEDS: LEVOTHYROXINE 75 MCG TABLET PO SCH (06:40)
[2020-10-08] MEDS: KETOROLAC 15 MG/1 ML VIAL IV SCH ×3 (06:45→21:18)
[2020-10-08] MEDS: FORMOTEROL 20 MCG/2 ML NEB RESP TX SCH ×2 (07:09→19:08)
[2020-10-08] MEDS: BUDESONIDE 0.25 MG/2 ML NEB RESP TX SCH ×2 (07:10→19:08)
[2020-10-08] MEDS: methylPREDNISolone SOD SUC 40 MG/1 ML VIAL IV SCH ×3 (09:00→23:00)
[2020-10-08] MEDS: INSULIN REGULAR 100 UNIT/ML SUBCUT SCH ×4 (09:01→21:18)
[2020-10-08] MEDS: CLOPIDOGREL 75 MG TABLET PO SCH (09:01)
[2020-10-08] MEDS: CYANOCOBALAMIN 500 MCG TABLET PO SCH (09:01)
[2020-10-08] MEDS: DOCUSATE SODIUM 100 MG CAPSULE PO SCH ×2 (09:01→21:18)
[2020-10-08] MEDS: ALPRAZolam 0.25 MG TABLET PO SCH ×2 (09:01→21:18)
[2020-10-08] MEDS: GLIMEPIRIDE 2 MG TABLET PO SCH ×2 (09:01→17:33)
[2020-10-08] MEDS: ISOSORBIDE MONONITRATE 30 MG TABLET PO SCH (09:02)
[2020-10-08] MEDS: cefTRIAXone 500 MG in SYRINGE 1 EACH IV SCH (09:02)
[2020-10-08] MEDS: MAGNESIUM OXIDE 400 MG TABLET PO SCH (09:02)
[2020-10-08] MEDS: MULTIVITAMIN (CENTRUM) TABLET PO SCH (09:02)
[2020-10-08] MEDS: FAMOTIDINE 20 MG TABLET PO SCH ×2 (09:02→21:18)
[2020-10-08] MEDS: BENZONATATE 100 MG CAPSULE PO SCH ×3 (09:02→21:18)
[2020-10-08] MEDS: carvediloL 3.125 MG TABLET PO SCH ×2 (09:02→17:33)
[2020-10-08] MEDS: CHOLECALCIFEROL 1,000 UNIT TABLET PO SCH (09:02)
[2020-10-08] MEDS: AZITHROMYCIN INJ 500 MG in SODIUM CHLORIDE 0.9% 250 ML IV SCH (09:03)
[2020-10-08] MEDS: ASPIRIN EC 81 MG TABLET PO SCH (21:18)
[2020-10-08] MEDS: ROSUVASTATIN 20 MG TABLET PO SCH (21:18)
[2020-10-08] MEDS: ENOXAPARIN 40 MG/0.4 ML SYRINGE SUBCUT SCH (21:18)
[2020-10-08] MEDS: INSULIN GLARGINE 100 UNIT/ML SUBCUT SCH (21:20)
[2020-10-09] MEDS: MAGNESIUM OXIDE 400 MG TABLET PO SCH ×3 (02:28→20:18)
[2020-10-09] MEDS: ALBUTEROL/IPRATROPIUM 3 ML NEB RESP TX SCH ×5 (03:00→19:53)
[2020-10-09] MEDS: SODIUM CHLORIDE 0.9% 1,000 ML IV SCH (05:09)
[2020-10-09] MEDS: LEVOTHYROXINE 75 MCG TABLET PO SCH (05:30)
[2020-10-09] MEDS: KETOROLAC 15 MG/1 ML VIAL IV SCH ×3 (05:30→23:10)
[2020-10-09 06:57] LABS: Basophils % 0.2 % (0.0-0.8); Hematocrit 35.6 VOL% (42.0-52.0); Immature Granulocytes % 2.6 %; Immature Granulocytes Absolute 0.34 #; Lymphocytes # 0.9 10*3/uL (1.4-4.0); Lymphocytes % 7.1 % (21.2-54.2); Mean Corpuscular HGB Conc 30.9 GM/DL (32-36); Mean Corpuscular Volume 88.1 FL (87-102); Mean Platelet Volume 10.1 FL (9.6-12.0); Monocytes % 5.2 % (1.7-12.7); Neutrophils % 84.9 % (38.7-73.9); Platelet Count 325 T/CUMM (130-400); Red Blood Count 4.04 MC/CUMM (3.8-5.5); Red Cell Distribution Width 15.4 % (9.3-17.3)
[2020-10-09] MEDS: BUDESONIDE 0.25 MG/2 ML NEB RESP TX SCH ×2 (07:21→19:53)
[2020-10-09] MEDS: FORMOTEROL 20 MCG/2 ML NEB RESP TX SCH ×2 (07:21→19:53)
[2020-10-09 07:22] LABS: Osmolality,Calculated 302.7 MOS/KG (273-304); Potassium 3.5 MMOL/L (3.5-5.1)
[2020-10-09] MEDS: carvediloL 3.125 MG TABLET PO SCH ×2 (09:38→18:26)
[2020-10-09] MEDS: CHOLECALCIFEROL 1,000 UNIT TABLET PO SCH (09:38)
[2020-10-09] MEDS: CYANOCOBALAMIN 500 MCG TABLET PO SCH (09:38)
[2020-10-09] MEDS: BENZONATATE 100 MG CAPSULE PO SCH ×3 (09:38→20:19)
[2020-10-09] MEDS: ISOSORBIDE MONONITRATE 30 MG TABLET PO SCH (09:38)
[2020-10-09] MEDS: GLIMEPIRIDE 2 MG TABLET PO SCH ×2 (09:38→18:26)
[2020-10-09] MEDS: CLOPIDOGREL 75 MG TABLET PO SCH (09:38)
[2020-10-09] MEDS: MULTIVITAMIN (CENTRUM) TABLET PO SCH (09:38)
[2020-10-09] MEDS: ALPRAZolam 0.25 MG TABLET PO SCH ×2 (09:38→20:19)
[2020-10-09] MEDS: FAMOTIDINE 20 MG TABLET PO SCH ×2 (09:39→20:18)
[2020-10-09] MEDS: INSULIN REGULAR 100 UNIT/ML SUBCUT SCH ×4 (10:39→20:19)
[2020-10-09] MEDS: DOCUSATE SODIUM 100 MG CAPSULE PO SCH ×2 (10:39→20:20)
[2020-10-09] MEDS: methylPREDNISolone SOD SUC 40 MG/1 ML VIAL IV SCH ×3 (11:24→23:10)
[2020-10-09] MEDS: cefTRIAXone 500 MG in SYRINGE 1 EACH IV SCH (11:25)
[2020-10-09] MEDS: AZITHROMYCIN INJ 500 MG in SODIUM CHLORIDE 0.9% 250 ML IV SCH (11:25)
[2020-10-09] MEDS ORDERED: FUROSEMIDE 40 MG/4 ML VIAL IV ONE (11:54)
[2020-10-09] MEDS: ROSUVASTATIN 20 MG TABLET PO SCH (20:18)
[2020-10-09] MEDS: ASPIRIN EC 81 MG TABLET PO SCH (20:18)
[2020-10-09] MEDS: INSULIN GLARGINE 100 UNIT/ML SUBCUT SCH (20:19)
[2020-10-09] MEDS: ENOXAPARIN 40 MG/0.4 ML SYRINGE SUBCUT SCH (20:20)
[2020-10-10] MEDS: ALBUTEROL/IPRATROPIUM 3 ML NEB RESP TX SCH ×5 (00:29→15:10)
[2020-10-10] MEDS: LEVOTHYROXINE 75 MCG TABLET PO SCH (05:09)
[2020-10-10 05:10] LABS: Basophils % 0.2 % (0.0-0.8); Hematocrit 36.3 VOL% (42.0-52.0); Hemoglobin 11.2 GM/DL (14.0-18.0); Immature Granulocytes % 1.7 %; Lymphocytes # 0.9 10*3/uL (1.4-4.0); Lymphocytes % 7.8 % (21.2-54.2); Mean Corpuscular HGB Conc 30.9 GM/DL (32-36); Mean Corpuscular Volume 87.5 FL (87-102); Mean Platelet Volume 10.1 FL (9.6-12.0); Monocytes % 3.5 % (1.7-12.7); Neutrophils % 86.8 % (38.7-73.9); Platelet Count 351 T/CUMM (130-400); Red Blood Count 4.15 MC/CUMM (3.8-5.5); Red Cell Distribution Width 15.3 % (9.3-17.3)
[2020-10-10] MEDS: KETOROLAC 15 MG/1 ML VIAL IV SCH ×2 (05:13→14:32)
[2020-10-10 05:37] LABS: Calcium 8.1 MG/DL (8.5-10.1); Potassium 3.7 MMOL/L (3.5-5.1)
[2020-10-10] MEDS: FORMOTEROL 20 MCG/2 ML NEB RESP TX SCH (07:20)
[2020-10-10] MEDS: BUDESONIDE 0.25 MG/2 ML NEB RESP TX SCH (07:20)
[2020-10-10] MEDS: cefTRIAXone 500 MG in SYRINGE 1 EACH IV SCH (09:34)
[2020-10-10] MEDS: BENZONATATE 100 MG CAPSULE PO SCH ×2 (09:35→14:31)
[2020-10-10] MEDS: CYANOCOBALAMIN 500 MCG TABLET PO SCH (09:35)
[2020-10-10] MEDS: AZITHROMYCIN INJ 500 MG in SODIUM CHLORIDE 0.9% 250 ML IV SCH (09:35)
[2020-10-10] MEDS: MULTIVITAMIN (CENTRUM) TABLET PO SCH (09:35)
[2020-10-10] MEDS: carvediloL 3.125 MG TABLET PO SCH (09:35)
[2020-10-10] MEDS: methylPREDNISolone SOD SUC 40 MG/1 ML VIAL IV SCH (09:35)
[2020-10-10] MEDS: CLOPIDOGREL 75 MG TABLET PO SCH (09:36)
[2020-10-10] MEDS: FAMOTIDINE 20 MG TABLET PO SCH (09:36)
[2020-10-10] MEDS: ISOSORBIDE MONONITRATE 30 MG TABLET PO SCH (09:36)
[2020-10-10] MEDS: MAGNESIUM OXIDE 400 MG TABLET PO SCH (09:36)
[2020-10-10] MEDS: CHOLECALCIFEROL 1,000 UNIT TABLET PO SCH (09:36)
[2020-10-10] MEDS: DOCUSATE SODIUM 100 MG CAPSULE PO SCH (09:36)
[2020-10-10] MEDS: GLIMEPIRIDE 2 MG TABLET PO SCH (09:36)
[2020-10-10] MEDS: ALPRAZolam 0.25 MG TABLET PO SCH (09:36)
[2020-10-10] MEDS: INSULIN REGULAR 100 UNIT/ML SUBCUT SCH ×2 (10:10→11:49)
[2020-10-10 11:40] VITALS: BP 149/79
== END 2020-10-10 15:40 | DRG 191 ==
LOC: N.TELEN 17:11
PROVIDERS: ADMIT Internal Medicine; ATTEND Internal Medicine

== ENCOUNTER 2021-02-28 02:26 | Inpatient (IN) ==
[2021-02-28 02:45] LABS: Basophils # 0.1 10*3/uL (0.0-0.2); Basophils % 1.1 % (0.0-0.8); Eosinophils # 0.5 10*3/uL (0.0-0.87); Eosinophils % 4.6 % (0.00-10.9); Hematocrit 42.6 VOL% (42.0-52.0); Hemoglobin 13.3 GM/DL (14.0-18.0); Immature Granulocytes % 0.4 %; Immature Granulocytes Absolute 0.04 #; Lymphocytes # 2.3 10*3/uL (1.4-4.0); Lymphocytes % 20.6 % (21.2-54.2); Mean Corpuscular HGB Conc 31.2 GM/DL (32-36); Mean Corpuscular Volume 87.1 FL (87-102); Mean Platelet Volume 9.8 FL (9.6-12.0); Monocytes % 10.7 % (1.7-12.7); Neutrophils % 62.6 % (38.7-73.9); Platelet Count 330 T/CUMM (130-400); Red Blood Count 4.89 MC/CUMM (3.8-5.5); Red Cell Distribution Width 14.7 % (9.3-17.3); White Blood Count 11.2 T/CUMM (4-12)
[2021-02-28] MEDS ORDERED: ONDANSETRON 4 MG/2 ML VIAL IV STA (02:47)
[2021-02-28] MEDS ORDERED: methylPREDNISolone SOD SUC 125 MG/2 ML VIAL IV STA (02:47)
[2021-02-28] MEDS ORDERED: ALBUTEROL/IPRATROPIUM 3 ML NEB RESP TX STA (02:47)
[2021-02-28] MEDS ORDERED: MORPHINE 2 MG/1 ML SYRINGE IV STA (02:47)
[2021-02-28] MEDS ORDERED: ASPIRIN 325 MG TABLET PO STA (02:47)
[2021-02-28] MEDS ORDERED: NITROGLYCERIN 2% OINT 1 INCH/GM PACK TOP STA (02:47)
[2021-02-28 03:17] LABS: Albumin 3.6 G/DL (3.4-5.0); Bilirubin,Total 0.5 MG/DL (0.20-1.00); Calcium 9.2 MG/DL (8.5-10.1); Osmolality,Calculated 286.8 MOS/KG (273-304); Potassium 3.6 MMOL/L (3.5-5.1); Total Protein 7.6 G/DL (6.4-8.2)
[2021-02-28 04:00] LABS: PT Patient Result 11.1 SECS (10.5-12.0)
[2021-02-28] MEDS ORDERED: ONDANSETRON 4 MG/2 ML VIAL IV PRN (04:29)
[2021-02-28] MEDS ORDERED: DEXTROSE 50% 25 GM/50 ML VIAL IV PRN (04:29)
[2021-02-28] MEDS ORDERED: GLUCAGON 1 MG VIAL IM PRN (04:29)
[2021-02-28] MEDS ORDERED: MORPHINE 2 MG/1 ML SYRINGE IV PRN (04:29)
[2021-02-28] MEDS: SODIUM CHLORIDE 0.9% 1,000 ML IV SCH ×2 (06:00→19:53)
[2021-02-28] MEDS: ALBUTEROL/IPRATROPIUM 3 ML NEB RESP TX SCH ×4 (07:00→20:15)
[2021-02-28] MEDS ORDERED: NITROGLYCERIN SL 0.4 MG TABLET SL PRN (08:03)
[2021-02-28 08:07] LABS: Basophils # 0.1 10*3/uL (0.0-0.2); Basophils % 0.6 % (0.0-0.8); Eosinophils % 0.2 % (0.00-10.9); Hematocrit 40.4 VOL% (42.0-52.0); Immature Granulocytes % 0.4 %; Immature Granulocytes Absolute 0.05 #; Lymphocytes # 1.1 10*3/uL (1.4-4.0); Lymphocytes % 7.7 % (21.2-54.2); Mean Corpuscular HGB Conc 32.2 GM/DL (32-36); Mean Corpuscular Volume 87.4 FL (87-102); Monocytes % 1.2 % (1.7-12.7); Neutrophils % 89.9 % (38.7-73.9); Platelet Count 299 T/CUMM (130-400); Red Blood Count 4.62 MC/CUMM (3.8-5.5); Red Cell Distribution Width 14.7 % (9.3-17.3); White Blood Count 13.7 T/CUMM (4-12)
[2021-02-28 08:15] LABS: Albumin 3.3 G/DL (3.4-5.0); Bilirubin,Total 0.4 MG/DL (0.20-1.00); Calcium 8.9 MG/DL (8.5-10.1); Osmolality,Calculated 279.8 MOS/KG (273-304); Potassium 4.8 MMOL/L (3.5-5.1); Total Protein 7.3 G/DL (6.4-8.2)
[2021-02-28 08:20] LABS: Risk Ratio 3.11; VLDL Cholesterol 26.6 MG/DL
[2021-02-28] MEDS ORDERED: NITROGLYCERIN 2% OINT 1 INCH/GM PACK TOP SCH (09:00)
[2021-02-28] MEDS: ENOXAPARIN 40 MG/0.4 ML SYRINGE SUBCUT SCH (09:45)
[2021-02-28] MEDS: CLOPIDOGREL 75 MG TABLET PO SCH (09:45)
[2021-02-28] MEDS: DOCUSATE SODIUM 100 MG CAPSULE PO SCH ×2 (09:45→21:47)
[2021-02-28] MEDS: OLMESARTAN 20 MG TABLET PO SCH (09:45)
[2021-02-28] MEDS: carvediloL 3.125 MG TABLET PO SCH ×2 (09:45→21:46)
[2021-02-28] MEDS: ISOSORBIDE MONONITRATE 30 MG TABLET PO SCH (09:45)
[2021-02-28] MEDS: PANTOPRAZOLE 40 MG VIAL IV SCH (09:54)
[2021-02-28] MEDS: INSULIN REGULAR 100 UNIT/ML SUBCUT SCH ×3 (12:21→17:52)
[2021-02-28] MEDS: methylPREDNISolone SOD SUC 40 MG/1 ML VIAL IV SCH (17:14)
[2021-02-28] MEDS: ROSUVASTATIN 20 MG TABLET PO SCH (21:45)
[2021-02-28] MEDS: BENZONATATE 100 MG CAPSULE PO SCH (21:45)
[2021-02-28] MEDS: MAGNESIUM OXIDE 400 MG TABLET PO SCH (21:45)
[2021-02-28] MEDS: ASPIRIN EC 81 MG TABLET PO SCH (21:46)
[2021-02-28] MEDS: metroNIDAZOLE INJ 500 MG/100 ML PREMIX IV SCH (22:12)
[2021-03-01] MEDS: INSULIN REGULAR 100 UNIT/ML SUBCUT SCH ×5 (00:06→21:07)
[2021-03-01] MEDS: ALBUTEROL/IPRATROPIUM 3 ML NEB RESP TX SCH ×6 (00:30→19:00)
[2021-03-01] MEDS: methylPREDNISolone SOD SUC 40 MG/1 ML VIAL IV SCH ×2 (03:01→15:37)
[2021-03-01] MEDS: LEVOTHYROXINE 75 MCG TABLET PO SCH (05:53)
[2021-03-01] MEDS: SODIUM CHLORIDE 0.9% 1,000 ML IV SCH ×2 (06:00→12:32)
[2021-03-01] MEDS: metroNIDAZOLE INJ 500 MG/100 ML PREMIX IV SCH ×3 (06:03→22:19)
[2021-03-01 06:10] LABS: Basophils % 0.1 % (0.0-0.8); Hematocrit 37.1 VOL% (42.0-52.0); Hemoglobin 11.5 GM/DL (14.0-18.0); Immature Granulocytes % 0.5 %; Immature Granulocytes Absolute 0.06 #; Lymphocytes # 0.9 10*3/uL (1.4-4.0); Lymphocytes % 6.9 % (21.2-54.2); Mean Corpuscular Volume 89.2 FL (87-102); Mean Platelet Volume 10.5 FL (9.6-12.0); Neutrophils % 87.5 % (38.7-73.9); Platelet Count 293 T/CUMM (130-400); Red Blood Count 4.16 MC/CUMM (3.8-5.5); Red Cell Distribution Width 14.6 % (9.3-17.3); White Blood Count 12.5 T/CUMM (4-12)
[2021-03-01 06:46] LABS: Calcium 9.2 MG/DL (8.5-10.1); Osmolality,Calculated 293.1 MOS/KG (273-304); Potassium 4.2 MMOL/L (3.5-5.1)
[2021-03-01] MEDS: OLMESARTAN 20 MG TABLET PO SCH (09:50)
[2021-03-01] MEDS: GLIMEPIRIDE 2 MG TABLET PO SCH (09:50)
[2021-03-01] MEDS: DOCUSATE SODIUM 100 MG CAPSULE PO SCH ×2 (09:51→21:06)
[2021-03-01] MEDS: CLOPIDOGREL 75 MG TABLET PO SCH (09:51)
[2021-03-01] MEDS: BENZONATATE 100 MG CAPSULE PO SCH ×3 (09:51→21:06)
[2021-03-01] MEDS: ISOSORBIDE MONONITRATE 30 MG TABLET PO SCH (09:51)
[2021-03-01] MEDS: MAGNESIUM OXIDE 400 MG TABLET PO SCH ×2 (09:52→21:06)
[2021-03-01] MEDS: carvediloL 3.125 MG TABLET PO SCH ×2 (09:52→21:05)
[2021-03-01] MEDS: ENOXAPARIN 40 MG/0.4 ML SYRINGE SUBCUT SCH (10:00)
[2021-03-01] MEDS: PANTOPRAZOLE 40 MG VIAL IV SCH (11:45)
[2021-03-01] MEDS ORDERED: LACTULOSE 20 GM/30 ML UDCUP PO PRN (20:00)
[2021-03-01] MEDS: ASPIRIN EC 81 MG TABLET PO SCH (21:05)
[2021-03-01] MEDS: ROSUVASTATIN 20 MG TABLET PO SCH (21:06)
[2021-03-02] MEDS: ALBUTEROL/IPRATROPIUM 3 ML NEB RESP TX SCH ×5 (00:42→15:34)
[2021-03-02 01:10] LABS: Basophils % 0.1 % (0.0-0.8); Hemoglobin 11.1 GM/DL (14.0-18.0); Immature Granulocytes % 0.6 %; Lymphocytes % 6.1 % (21.2-54.2); Mean Corpuscular HGB Conc 31.7 GM/DL (32-36); Mean Corpuscular Volume 87.5 FL (87-102); Mean Platelet Volume 10.2 FL (9.6-12.0); Monocytes % 4.2 % (1.7-12.7); Platelet Count 250 T/CUMM (130-400); Red Cell Distribution Width 14.9 % (9.3-17.3); White Blood Count 15.9 T/CUMM (4-12)
[2021-03-02 01:54] LABS: Alanine Aminotransferase 12 U/L (16-61); Albumin 3.3 G/DL (3.4-5.0); Alkaline Phosphatase 55 U/L (45-117); Aspartate Amino Transferase 8 U/L (0-37); Bilirubin,Total < 0.39 MG/DL (0.20-1.00); Blood Urea Nitrogen 28 MG/DL (7-18); Calcium 8.9 MG/DL (8.5-10.1); Carbon Dioxide 27 MMOL/L (21-32); Estimated Glom Filtration Rate 88 ML/MIN; Glucose 222 MG/DL (74-106); Potassium 4.1 MMOL/L (3.5-5.1); Sodium 143 MMOL/L (136-145); Total Protein 6.6 G/DL (6.4-8.2)
[2021-03-02] MEDS: methylPREDNISolone SOD SUC 40 MG/1 ML VIAL IV SCH ×2 (03:49→22:50)
[2021-03-02] MEDS: metroNIDAZOLE INJ 500 MG/100 ML PREMIX IV SCH ×2 (05:01→15:32)
[2021-03-02] MEDS: LEVOTHYROXINE 75 MCG TABLET PO SCH (05:36)
[2021-03-02] MEDS: BENZONATATE 100 MG CAPSULE PO SCH ×3 (09:54→22:56)
[2021-03-02] MEDS: MAGNESIUM OXIDE 400 MG TABLET PO SCH ×2 (09:55→22:56)
[2021-03-02] MEDS: DOCUSATE SODIUM 100 MG CAPSULE PO SCH ×2 (09:55→23:57)
[2021-03-02] MEDS: carvediloL 3.125 MG TABLET PO SCH ×2 (09:55→22:57)
[2021-03-02] MEDS: OLMESARTAN 20 MG TABLET PO SCH (09:55)
[2021-03-02] MEDS: ISOSORBIDE MONONITRATE 30 MG TABLET PO SCH (09:55)
[2021-03-02] MEDS: ACETAMINOPHEN 325 MG TABLET PO PRN (09:56)
[2021-03-02] MEDS: ENOXAPARIN 40 MG/0.4 ML SYRINGE SUBCUT SCH (09:57)
[2021-03-02] MEDS: PANTOPRAZOLE 40 MG VIAL IV SCH (09:57)
[2021-03-02] MEDS: POLYETHYLENE GLYCOL POWDER 17 GM PACK PO SCH (09:58)
[2021-03-02] MEDS: INSULIN REGULAR 100 UNIT/ML SUBCUT SCH ×3 (09:58→16:36)
[2021-03-02] MEDS: INSULIN GLARGINE 100 UNIT/ML SUBCUT SCH (09:59)
[2021-03-02] MEDS: GLIMEPIRIDE 2 MG TABLET PO SCH (09:59)
[2021-03-02] MEDS: CLOPIDOGREL 75 MG TABLET PO SCH (10:00)
[2021-03-02] MEDS: CIPROFLOXACIN INJ 400 MG/200 ML PREMIX IV SCH ×2 (10:00→22:56)
[2021-03-02 10:53] LABS: Bilirubin,Urine Negative (Negative); Blood, Urine Small mg/dL (Negative); Glucose,Urine (UA) >=500 mg/dL (Negative); Ketones,Urine Negative (Negative); Nitrite,Urine Negative (Negative); Protein,Urine 100 MG/DL; RBC,Urine 2 /HPF (0-4); Urine Appearance CLEAR (Clear); Urine Color Straw (Yellow); Urine Specific Gravity 1.025 (1.001-1.035); Urine Urobilinogen < 2.0 EU/DL (0.2-1.0)
[2021-03-02] MEDS: ROSUVASTATIN 20 MG TABLET PO SCH (22:56)
[2021-03-02] MEDS: ASPIRIN EC 81 MG TABLET PO SCH (22:56)
[2021-03-02] MEDS: LACTULOSE 20 GM/30 ML UDCUP PO SCH (22:56)
[2021-03-03] MEDS: metroNIDAZOLE INJ 500 MG/100 ML PREMIX IV SCH ×4 (00:01→21:00)
[2021-03-03] MEDS: INSULIN REGULAR 100 UNIT/ML SUBCUT SCH ×5 (02:23→20:53)
[2021-03-03] MEDS: ALBUTEROL/IPRATROPIUM 3 ML NEB RESP TX SCH ×6 (03:12→21:00)
[2021-03-03] MEDS: LEVOTHYROXINE 75 MCG TABLET PO SCH (06:33)
[2021-03-03 06:34] LABS: Basophils % 0.1 % (0.0-0.8); Hematocrit 36.2 VOL% (42.0-52.0); Hemoglobin 11.7 GM/DL (14.0-18.0); Immature Granulocytes % 0.8 %; Lymphocytes % 8.8 % (21.2-54.2); Mean Corpuscular HGB Conc 32.3 GM/DL (32-36); Mean Corpuscular Volume 86.4 FL (87-102); Mean Platelet Volume 10.6 FL (9.6-12.0); Monocytes % 4.1 % (1.7-12.7); Neutrophils % 86.2 % (38.7-73.9); Platelet Count 248 T/CUMM (130-400); Red Blood Count 4.19 MC/CUMM (3.8-5.5); Red Cell Distribution Width 14.8 % (9.3-17.3); White Blood Count 11.9 T/CUMM (4-12)
[2021-03-03 06:54] LABS: Calcium 8.5 MG/DL (8.5-10.1)
[2021-03-03] MEDS: DOCUSATE SODIUM 100 MG CAPSULE PO SCH ×3 (08:57→20:53)
[2021-03-03] MEDS: CLOPIDOGREL 75 MG TABLET PO SCH (08:57)
[2021-03-03] MEDS: OLMESARTAN 20 MG TABLET PO SCH (08:57)
[2021-03-03] MEDS: BENZONATATE 100 MG CAPSULE PO SCH ×3 (08:58→20:53)
[2021-03-03] MEDS: GLIMEPIRIDE 2 MG TABLET PO SCH (08:58)
[2021-03-03] MEDS: MAGNESIUM OXIDE 400 MG TABLET PO SCH ×2 (08:58→20:52)
[2021-03-03] MEDS: ISOSORBIDE MONONITRATE 30 MG TABLET PO SCH (08:58)
[2021-03-03] MEDS: POLYETHYLENE GLYCOL POWDER 17 GM PACK PO SCH (08:59)
[2021-03-03] MEDS: INSULIN GLARGINE 100 UNIT/ML SUBCUT SCH (08:59)
[2021-03-03] MEDS: ENOXAPARIN 40 MG/0.4 ML SYRINGE SUBCUT SCH (08:59)
[2021-03-03] MEDS: methylPREDNISolone SOD SUC 40 MG/1 ML VIAL IV SCH ×2 (09:00→20:59)
[2021-03-03] MEDS: LACTULOSE 20 GM/30 ML UDCUP PO SCH ×3 (09:00→20:53)
[2021-03-03] MEDS: PANTOPRAZOLE 40 MG VIAL IV SCH (09:00)
[2021-03-03] MEDS: carvediloL 3.125 MG TABLET PO SCH ×2 (09:06→20:53)
[2021-03-03] MEDS: CIPROFLOXACIN INJ 400 MG/200 ML PREMIX IV SCH ×2 (09:06→23:50)
[2021-03-03] MEDS: ROSUVASTATIN 20 MG TABLET PO SCH (20:52)
[2021-03-03] MEDS: ASPIRIN EC 81 MG TABLET PO SCH (20:53)
[2021-03-04] MEDS: ALBUTEROL/IPRATROPIUM 3 ML NEB RESP TX SCH ×5 (04:18→20:42)
[2021-03-04] MEDS: LEVOTHYROXINE 75 MCG TABLET PO SCH (05:55)
[2021-03-04] MEDS: metroNIDAZOLE INJ 500 MG/100 ML PREMIX IV SCH ×3 (05:55→22:55)
[2021-03-04] MEDS: INSULIN REGULAR 100 UNIT/ML SUBCUT SCH ×4 (08:37→21:53)
[2021-03-04] MEDS: GLIMEPIRIDE 2 MG TABLET PO SCH (09:13)
[2021-03-04] MEDS: carvediloL 3.125 MG TABLET PO SCH ×2 (09:13→21:52)
[2021-03-04] MEDS: OLMESARTAN 20 MG TABLET PO SCH (09:13)
[2021-03-04] MEDS: CLOPIDOGREL 75 MG TABLET PO SCH (09:13)
[2021-03-04] MEDS: BENZONATATE 100 MG CAPSULE PO SCH ×3 (09:13→21:53)
[2021-03-04] MEDS: DOCUSATE SODIUM 100 MG CAPSULE PO SCH ×2 (09:13→21:51)
[2021-03-04] MEDS: ISOSORBIDE MONONITRATE 30 MG TABLET PO SCH (09:14)
[2021-03-04] MEDS: INSULIN GLARGINE 100 UNIT/ML SUBCUT SCH (09:14)
[2021-03-04] MEDS: POLYETHYLENE GLYCOL POWDER 17 GM PACK PO SCH (09:14)
[2021-03-04] MEDS: ENOXAPARIN 40 MG/0.4 ML SYRINGE SUBCUT SCH (09:14)
[2021-03-04] MEDS: MAGNESIUM OXIDE 400 MG TABLET PO SCH ×2 (09:14→21:53)
[2021-03-04] MEDS: LACTULOSE 20 GM/30 ML UDCUP PO SCH ×2 (09:14→21:52)
[2021-03-04] MEDS: PANTOPRAZOLE 40 MG VIAL IV SCH (09:15)
[2021-03-04] MEDS: methylPREDNISolone SOD SUC 40 MG/1 ML VIAL IV SCH ×2 (09:15→21:52)
[2021-03-04] MEDS: CIPROFLOXACIN INJ 400 MG/200 ML PREMIX IV SCH ×2 (09:20→21:49)
[2021-03-04] MEDS: ACETAMINOPHEN 325 MG TABLET PO PRN (12:41)
[2021-03-04] MEDS: ROSUVASTATIN 20 MG TABLET PO SCH (21:53)
[2021-03-04] MEDS: ASPIRIN EC 81 MG TABLET PO SCH (21:53)
[2021-03-05] MEDS: ALBUTEROL/IPRATROPIUM 3 ML NEB RESP TX SCH ×6 (03:38→23:39)
[2021-03-05] MEDS: metroNIDAZOLE INJ 500 MG/100 ML PREMIX IV SCH ×3 (06:15→22:03)
[2021-03-05] MEDS: LEVOTHYROXINE 75 MCG TABLET PO SCH (06:15)
[2021-03-05] MEDS: INSULIN GLARGINE 100 UNIT/ML SUBCUT SCH (10:33)
[2021-03-05] MEDS: ENOXAPARIN 40 MG/0.4 ML SYRINGE SUBCUT SCH (10:33)
[2021-03-05] MEDS: INSULIN REGULAR 100 UNIT/ML SUBCUT SCH ×4 (10:33→20:56)
[2021-03-05] MEDS: ISOSORBIDE MONONITRATE 30 MG TABLET PO SCH (10:34)
[2021-03-05] MEDS: DOCUSATE SODIUM 100 MG CAPSULE PO SCH ×2 (10:34→20:55)
[2021-03-05] MEDS: BENZONATATE 100 MG CAPSULE PO SCH ×3 (10:34→20:55)
[2021-03-05] MEDS: GLIMEPIRIDE 2 MG TABLET PO SCH (10:34)
[2021-03-05] MEDS: OLMESARTAN 20 MG TABLET PO SCH (10:35)
[2021-03-05] MEDS: carvediloL 3.125 MG TABLET PO SCH ×2 (10:35→20:55)
[2021-03-05] MEDS: CLOPIDOGREL 75 MG TABLET PO SCH (10:35)
[2021-03-05] MEDS: LACTULOSE 20 GM/30 ML UDCUP PO SCH ×2 (10:36→21:02)
[2021-03-05] MEDS: MAGNESIUM OXIDE 400 MG TABLET PO SCH ×2 (10:36→20:55)
[2021-03-05] MEDS: PANTOPRAZOLE 40 MG VIAL IV SCH (10:37)
[2021-03-05] MEDS: methylPREDNISolone SOD SUC 40 MG/1 ML VIAL IV SCH ×2 (10:37→20:56)
[2021-03-05] MEDS: POLYETHYLENE GLYCOL POWDER 17 GM PACK PO SCH (10:37)
[2021-03-05] MEDS: CIPROFLOXACIN INJ 400 MG/200 ML PREMIX IV SCH ×2 (10:42→21:00)
[2021-03-05] MEDS: ROSUVASTATIN 20 MG TABLET PO SCH (20:55)
[2021-03-05] MEDS: ASPIRIN EC 81 MG TABLET PO SCH (20:56)
[2021-03-06] MEDS: metroNIDAZOLE INJ 500 MG/100 ML PREMIX IV SCH ×3 (05:39→22:07)
[2021-03-06] MEDS: LEVOTHYROXINE 75 MCG TABLET PO SCH (05:39)
[2021-03-06] MEDS: ALBUTEROL/IPRATROPIUM 3 ML NEB RESP TX SCH ×6 (07:25→23:54)
[2021-03-06] MEDS: INSULIN REGULAR 100 UNIT/ML SUBCUT SCH ×4 (09:15→20:55)
[2021-03-06] MEDS: INSULIN GLARGINE 100 UNIT/ML SUBCUT SCH (09:16)
[2021-03-06] MEDS: CIPROFLOXACIN INJ 400 MG/200 ML PREMIX IV SCH ×2 (09:17→20:56)
[2021-03-06] MEDS: POLYETHYLENE GLYCOL POWDER 17 GM PACK PO SCH ×2 (09:17→20:55)
[2021-03-06] MEDS: methylPREDNISolone SOD SUC 40 MG/1 ML VIAL IV SCH ×2 (09:18→20:55)
[2021-03-06] MEDS: PANTOPRAZOLE 40 MG VIAL IV SCH (09:18)
[2021-03-06] MEDS: ISOSORBIDE MONONITRATE 30 MG TABLET PO SCH (09:19)
[2021-03-06] MEDS: DOCUSATE SODIUM 100 MG CAPSULE PO SCH ×2 (09:19→20:54)
[2021-03-06] MEDS: OLMESARTAN 20 MG TABLET PO SCH (09:19)
[2021-03-06] MEDS: MAGNESIUM OXIDE 400 MG TABLET PO SCH ×2 (09:19→20:54)
[2021-03-06] MEDS: BENZONATATE 100 MG CAPSULE PO SCH ×3 (09:19→20:55)
[2021-03-06] MEDS: LACTULOSE 20 GM/30 ML UDCUP PO SCH ×2 (09:20→20:53)
[2021-03-06] MEDS: carvediloL 3.125 MG TABLET PO SCH ×2 (09:20→20:54)
[2021-03-06] MEDS: ENOXAPARIN 40 MG/0.4 ML SYRINGE SUBCUT SCH (09:20)
[2021-03-06] MEDS: CLOPIDOGREL 75 MG TABLET PO SCH (09:20)
[2021-03-06] MEDS: GLIMEPIRIDE 2 MG TABLET PO SCH (09:27)
[2021-03-06] MEDS: LIDOCAINE 5% PATCH TRANSDERM SCH (13:53)
[2021-03-06] MEDS: ROSUVASTATIN 20 MG TABLET PO SCH (20:54)
[2021-03-06] MEDS: ASPIRIN EC 81 MG TABLET PO SCH (20:54)
[2021-03-07] MEDS: ALBUTEROL/IPRATROPIUM 3 ML NEB RESP TX SCH ×6 (03:03→22:40)
[2021-03-07] MEDS: LEVOTHYROXINE 75 MCG TABLET PO SCH (06:32)
[2021-03-07] MEDS: PANTOPRAZOLE 40 MG TABLET PO SCH (06:33)
[2021-03-07] MEDS: metroNIDAZOLE INJ 500 MG/100 ML PREMIX IV SCH ×3 (06:33→22:03)
[2021-03-07 06:40] LABS: Basophils % 0.1 % (0.0-0.8); Eosinophils # 0.1 10*3/uL (0.0-0.87); Eosinophils % 0.4 % (0.00-10.9); Hematocrit 40.4 VOL% (42.0-52.0); Hemoglobin 12.6 GM/DL (14.0-18.0); Immature Granulocytes % 1.1 %; Immature Granulocytes Absolute 0.16 #; Lymphocytes # 1.8 10*3/uL (1.4-4.0); Lymphocytes % 12.7 % (21.2-54.2); Mean Corpuscular HGB Conc 31.2 GM/DL (32-36); Mean Corpuscular Volume 87.4 FL (87-102); Mean Platelet Volume 10.3 FL (9.6-12.0); Monocytes % 6.3 % (1.7-12.7); Neutrophils % 79.4 % (38.7-73.9); Platelet Count 292 T/CUMM (130-400); Red Blood Count 4.62 MC/CUMM (3.8-5.5); Red Cell Distribution Width 15.3 % (9.3-17.3); White Blood Count 14.3 T/CUMM (4-12)
[2021-03-07 07:12] LABS: Alanine Aminotransferase 24 U/L (16-61); Alkaline Phosphatase 53 U/L (45-117); Aspartate Amino Transferase 16 U/L (0-37); Bilirubin,Total < 0.39 MG/DL (0.20-1.00); Blood Urea Nitrogen 29 MG/DL (7-18); Calcium 8.5 MG/DL (8.5-10.1); Carbon Dioxide 28 MMOL/L (21-32); Estimated Glom Filtration Rate 87 ML/MIN; Glucose 171 MG/DL (74-106); Potassium 4.1 MMOL/L (3.5-5.1); Sodium 143 MMOL/L (136-145); Total Protein 6.1 G/DL (6.4-8.2)
[2021-03-07] MEDS: INSULIN GLARGINE 100 UNIT/ML SUBCUT SCH (09:35)
[2021-03-07] MEDS: ENOXAPARIN 40 MG/0.4 ML SYRINGE SUBCUT SCH (09:35)
[2021-03-07] MEDS: DOCUSATE SODIUM 100 MG CAPSULE PO SCH ×2 (09:36→21:09)
[2021-03-07] MEDS: MAGNESIUM OXIDE 400 MG TABLET PO SCH ×2 (09:36→21:09)
[2021-03-07] MEDS: CLOPIDOGREL 75 MG TABLET PO SCH (09:36)
[2021-03-07] MEDS: OLMESARTAN 20 MG TABLET PO SCH (09:36)
[2021-03-07] MEDS: BENZONATATE 100 MG CAPSULE PO SCH ×3 (09:36→21:09)
[2021-03-07] MEDS: carvediloL 3.125 MG TABLET PO SCH ×2 (09:36→21:09)
[2021-03-07] MEDS: ISOSORBIDE MONONITRATE 30 MG TABLET PO SCH (09:36)
[2021-03-07] MEDS: methylPREDNISolone SOD SUC 40 MG/1 ML VIAL IV SCH ×2 (09:37→21:16)
[2021-03-07] MEDS: POLYETHYLENE GLYCOL POWDER 17 GM PACK PO SCH ×2 (09:52→21:09)
[2021-03-07] MEDS: CIPROFLOXACIN INJ 400 MG/200 ML PREMIX IV SCH ×2 (09:52→21:37)
[2021-03-07] MEDS: INSULIN REGULAR 100 UNIT/ML SUBCUT SCH ×4 (09:53→21:09)
[2021-03-07] MEDS: GLIMEPIRIDE 2 MG TABLET PO SCH (09:53)
[2021-03-07] MEDS: LACTULOSE 20 GM/30 ML UDCUP PO SCH ×2 (09:54→21:09)
[2021-03-07] MEDS: LIDOCAINE 5% PATCH TRANSDERM SCH (09:54)
[2021-03-07] MEDS ORDERED: GLUCAGON 1 MG VIAL IM PRN (10:11)
[2021-03-07] MEDS ORDERED: DEXTROSE 50% 25 GM/50 ML VIAL IV PRN (10:11)
[2021-03-07] MEDS: ASPIRIN EC 81 MG TABLET PO SCH (21:08)
[2021-03-07] MEDS: ROSUVASTATIN 20 MG TABLET PO SCH (21:08)
[2021-03-08] MEDS: ALBUTEROL/IPRATROPIUM 3 ML NEB RESP TX SCH ×5 (03:31→18:37)
[2021-03-08] MEDS: PANTOPRAZOLE 40 MG TABLET PO SCH (06:01)
[2021-03-08] MEDS: LEVOTHYROXINE 75 MCG TABLET PO SCH (06:01)
[2021-03-08] MEDS: metroNIDAZOLE INJ 500 MG/100 ML PREMIX IV SCH (06:05)
[2021-03-08 06:32] LABS: Basophils % 0.1 % (0.0-0.8); Eosinophils # 0.1 10*3/uL (0.0-0.87); Eosinophils % 0.3 % (0.00-10.9); Hematocrit 41.2 VOL% (42.0-52.0); Hemoglobin 12.7 GM/DL (14.0-18.0); Immature Granulocytes % 1.8 %; Immature Granulocytes Absolute 0.27 #; Lymphocytes # 1.7 10*3/uL (1.4-4.0); Lymphocytes % 11.6 % (21.2-54.2); Mean Corpuscular HGB Conc 30.8 GM/DL (32-36); Mean Platelet Volume 10.3 FL (9.6-12.0); Monocytes % 6.2 % (1.7-12.7); Platelet Count 306 T/CUMM (130-400); Red Blood Count 4.68 MC/CUMM (3.8-5.5); Red Cell Distribution Width 15.5 % (9.3-17.3); White Blood Count 14.9 T/CUMM (4-12)
[2021-03-08 06:52] LABS: Alanine Aminotransferase 24 U/L (16-61); Alkaline Phosphatase 55 U/L (45-117); Aspartate Amino Transferase 10 U/L (0-37); Bilirubin,Total < 0.39 MG/DL (0.20-1.00); Blood Urea Nitrogen 30 MG/DL (7-18); Calcium 8.3 MG/DL (8.5-10.1); Carbon Dioxide 26 MMOL/L (21-32); Estimated Glom Filtration Rate 78 ML/MIN; Glucose 197 MG/DL (74-106); Potassium 4.2 MMOL/L (3.5-5.1); Sodium 143 MMOL/L (136-145); Total Protein 6.1 G/DL (6.4-8.2)
[2021-03-08] MEDS: INSULIN REGULAR 100 UNIT/ML SUBCUT SCH ×4 (08:45→21:20)
[2021-03-08] MEDS: ENOXAPARIN 40 MG/0.4 ML SYRINGE SUBCUT SCH (09:12)
[2021-03-08] MEDS: INSULIN GLARGINE 100 UNIT/ML SUBCUT SCH (09:12)
[2021-03-08] MEDS: POLYETHYLENE GLYCOL POWDER 17 GM PACK PO SCH ×2 (09:13→21:20)
[2021-03-08] MEDS: LIDOCAINE 5% PATCH TRANSDERM SCH (09:13)
[2021-03-08] MEDS: MAGNESIUM OXIDE 400 MG TABLET PO SCH ×2 (09:14→21:20)
[2021-03-08] MEDS: carvediloL 3.125 MG TABLET PO SCH ×2 (09:14→21:20)
[2021-03-08] MEDS: CLOPIDOGREL 75 MG TABLET PO SCH (09:14)
[2021-03-08] MEDS: GLIMEPIRIDE 2 MG TABLET PO SCH (09:14)
[2021-03-08] MEDS: OLMESARTAN 20 MG TABLET PO SCH (09:14)
[2021-03-08] MEDS: ISOSORBIDE MONONITRATE 30 MG TABLET PO SCH (09:14)
[2021-03-08] MEDS: BENZONATATE 100 MG CAPSULE PO SCH ×3 (09:14→21:20)
[2021-03-08] MEDS: LACTULOSE 20 GM/30 ML UDCUP PO SCH ×2 (09:15→21:20)
[2021-03-08] MEDS: methylPREDNISolone SOD SUC 40 MG/1 ML VIAL IV SCH ×2 (09:15→21:20)
[2021-03-08] MEDS: DOCUSATE SODIUM 100 MG CAPSULE PO SCH ×2 (09:15→21:20)
[2021-03-08] MEDS: metroNIDAZOLE 500 MG TABLET PO SCH ×2 (14:10→21:20)
[2021-03-08] MEDS: ROSUVASTATIN 20 MG TABLET PO SCH (21:20)
[2021-03-08] MEDS: ASPIRIN EC 81 MG TABLET PO SCH (21:20)
[2021-03-09] MEDS: ALBUTEROL/IPRATROPIUM 3 ML NEB RESP TX SCH ×6 (02:44→20:32)
[2021-03-09 05:08] LABS: Basophils % 0.2 % (0.0-0.8); Eosinophils # 0.6 10*3/uL (0.0-0.87); Eosinophils % 4.9 % (0.00-10.9); Hematocrit 40.6 VOL% (42.0-52.0); Hemoglobin 12.9 GM/DL (14.0-18.0); Immature Granulocytes % 1.3 %; Immature Granulocytes Absolute 0.17 #; Lymphocytes # 3.3 10*3/uL (1.4-4.0); Lymphocytes % 25.4 % (21.2-54.2); Mean Corpuscular HGB Conc 31.8 GM/DL (32-36); Mean Corpuscular Volume 87.3 FL (87-102); Monocytes % 8.8 % (1.7-12.7); Neutrophils % 59.4 % (38.7-73.9); Platelet Count 294 T/CUMM (130-400); Red Blood Count 4.65 MC/CUMM (3.8-5.5); Red Cell Distribution Width 15.6 % (9.3-17.3)
[2021-03-09 05:29] LABS: Alanine Aminotransferase 30 U/L (16-61); Albumin 2.7 G/DL (3.4-5.0); Alkaline Phosphatase 52 U/L (45-117); Aspartate Amino Transferase 19 U/L (0-37); Bilirubin,Total < 0.39 MG/DL (0.20-1.00); Blood Urea Nitrogen 28 MG/DL (7-18); Calcium 7.6 MG/DL (8.5-10.1); Carbon Dioxide 27 MMOL/L (21-32); Estimated Glom Filtration Rate 88 ML/MIN; Glucose 153 MG/DL (74-106); Osmolality,Calculated 296.7 MOS/KG (273-304); Potassium 3.5 MMOL/L (3.5-5.1); Sodium 145 MMOL/L (136-145); Total Protein 5.7 G/DL (6.4-8.2)
[2021-03-09] MEDS: PANTOPRAZOLE 40 MG TABLET PO SCH (06:09)
[2021-03-09] MEDS: LEVOTHYROXINE 75 MCG TABLET PO SCH (06:09)
[2021-03-09] MEDS: metroNIDAZOLE 500 MG TABLET PO SCH ×3 (06:09→22:57)
[2021-03-09] MEDS: BENZONATATE 100 MG CAPSULE PO SCH ×3 (10:12→21:39)
[2021-03-09] MEDS: GLIMEPIRIDE 2 MG TABLET PO SCH (10:12)
[2021-03-09] MEDS: MAGNESIUM OXIDE 400 MG TABLET PO SCH ×2 (10:12→21:39)
[2021-03-09] MEDS: carvediloL 3.125 MG TABLET PO SCH ×2 (10:12→21:39)
[2021-03-09] MEDS: OLMESARTAN 20 MG TABLET PO SCH (10:13)
[2021-03-09] MEDS: DOCUSATE SODIUM 100 MG CAPSULE PO SCH ×2 (10:13→21:39)
[2021-03-09] MEDS: ENOXAPARIN 40 MG/0.4 ML SYRINGE SUBCUT SCH (10:13)
[2021-03-09] MEDS: ISOSORBIDE MONONITRATE 30 MG TABLET PO SCH (10:13)
[2021-03-09] MEDS: CLOPIDOGREL 75 MG TABLET PO SCH (10:13)
[2021-03-09] MEDS: INSULIN GLARGINE 100 UNIT/ML SUBCUT SCH (10:14)
[2021-03-09] MEDS: INSULIN REGULAR 100 UNIT/ML SUBCUT SCH ×4 (10:17→21:40)
[2021-03-09] MEDS: LACTULOSE 20 GM/30 ML UDCUP PO SCH ×2 (10:19→21:40)
[2021-03-09] MEDS: LIDOCAINE 5% PATCH TRANSDERM SCH (10:19)
[2021-03-09] MEDS: methylPREDNISolone SOD SUC 40 MG/1 ML VIAL IV SCH ×2 (10:27→21:41)
[2021-03-09] MEDS: POLYETHYLENE GLYCOL POWDER 17 GM PACK PO SCH ×2 (10:27→21:41)
[2021-03-09] MEDS: ASPIRIN EC 81 MG TABLET PO SCH (21:39)
[2021-03-09] MEDS: ROSUVASTATIN 20 MG TABLET PO SCH (21:39)
[2021-03-10] MEDS: ALBUTEROL/IPRATROPIUM 3 ML NEB RESP TX SCH ×6 (00:33→19:45)
[2021-03-10 04:58] LABS: Basophils # 0.1 10*3/uL (0.0-0.2); Basophils % 0.3 % (0.0-0.8); Eosinophils # 0.6 10*3/uL (0.0-0.87); Eosinophils % 4.2 % (0.00-10.9); Hematocrit 42.2 VOL% (42.0-52.0); Hemoglobin 13.1 GM/DL (14.0-18.0); Immature Granulocytes % 0.9 %; Immature Granulocytes Absolute 0.13 #; Lymphocytes # 3.1 10*3/uL (1.4-4.0); Lymphocytes % 21.4 % (21.2-54.2); Mean Corpuscular Volume 88.1 FL (87-102); Mean Platelet Volume 9.7 FL (9.6-12.0); Monocytes % 9.6 % (1.7-12.7); Neutrophils % 63.6 % (38.7-73.9); Platelet Count 302 T/CUMM (130-400); Red Blood Count 4.79 MC/CUMM (3.8-5.5); Red Cell Distribution Width 15.5 % (9.3-17.3); White Blood Count 14.4 T/CUMM (4-12)
[2021-03-10 05:31] LABS: Alanine Aminotransferase 24 U/L (16-61); Albumin 2.9 G/DL (3.4-5.0); Alkaline Phosphatase 52 U/L (45-117); Aspartate Amino Transferase 13 U/L (0-37); Bilirubin,Total < 0.39 MG/DL (0.20-1.00); Blood Urea Nitrogen 27 MG/DL (7-18); Calcium 8.5 MG/DL (8.5-10.1); Carbon Dioxide 29 MMOL/L (21-32); Estimated Glom Filtration Rate 104 ML/MIN; Glucose 82 MG/DL (74-106); Osmolality,Calculated 284.3 MOS/KG (273-304); Potassium 3.8 MMOL/L (3.5-5.1); Sodium 141 MMOL/L (136-145)
[2021-03-10] MEDS: LEVOTHYROXINE 75 MCG TABLET PO SCH (06:02)
[2021-03-10] MEDS: PANTOPRAZOLE 40 MG TABLET PO SCH (06:02)
[2021-03-10] MEDS: metroNIDAZOLE 500 MG TABLET PO SCH ×3 (06:02→22:24)
[2021-03-10] MEDS: INSULIN REGULAR 100 UNIT/ML SUBCUT SCH ×4 (08:27→20:51)
[2021-03-10] MEDS: BENZONATATE 100 MG CAPSULE PO SCH ×3 (09:19→20:51)
[2021-03-10] MEDS: DOCUSATE SODIUM 100 MG CAPSULE PO SCH ×2 (09:19→20:51)
[2021-03-10] MEDS: carvediloL 3.125 MG TABLET PO SCH ×2 (09:19→20:50)
[2021-03-10] MEDS: OLMESARTAN 20 MG TABLET PO SCH (09:19)
[2021-03-10] MEDS: GLIMEPIRIDE 2 MG TABLET PO SCH (09:19)
[2021-03-10] MEDS: CLOPIDOGREL 75 MG TABLET PO SCH (09:20)
[2021-03-10] MEDS: ISOSORBIDE MONONITRATE 30 MG TABLET PO SCH (09:20)
[2021-03-10] MEDS: POLYETHYLENE GLYCOL POWDER 17 GM PACK PO SCH ×2 (09:20→20:52)
[2021-03-10] MEDS: INSULIN GLARGINE 100 UNIT/ML SUBCUT SCH (09:20)
[2021-03-10] MEDS: MAGNESIUM OXIDE 400 MG TABLET PO SCH ×2 (09:20→20:51)
[2021-03-10] MEDS: ENOXAPARIN 40 MG/0.4 ML SYRINGE SUBCUT SCH (09:21)
[2021-03-10] MEDS: LACTULOSE 20 GM/30 ML UDCUP PO SCH ×2 (09:23→20:52)
[2021-03-10] MEDS: methylPREDNISolone SOD SUC 40 MG/1 ML VIAL IV SCH ×2 (09:24→20:53)
[2021-03-10] MEDS: LIDOCAINE 5% PATCH TRANSDERM SCH (09:24)
[2021-03-10] MEDS ORDERED: traMADol 50 MG TABLET PO PRN (17:23)
[2021-03-10 19:39] LABS: Bilirubin,Urine Negative (Negative); Blood, Urine Negative (Negative); Glucose,Urine (UA) Negative (Negative); Hyaline Casts,Urine 1 /LPF (0-3); Ketones,Urine Negative (Negative); Mucus,Urine Occasional /LPF (Occasional); Nitrite,Urine Negative (Negative); Protein,Urine 100 MG/DL; RBC,Urine <1 /HPF (0-4); Urine Appearance CLEAR (Clear); Urine Color Yellow (Yellow); Urine Specific Gravity 1.015 (1.001-1.035); Urine Urobilinogen < 2.0 EU/DL (0.2-1.0)
[2021-03-10] MEDS: ROSUVASTATIN 20 MG TABLET PO SCH (20:51)
[2021-03-10] MEDS: ASPIRIN EC 81 MG TABLET PO SCH (20:51)
[2021-03-11 04:53] LABS: Basophils % 0.3 % (0.0-0.8); Eosinophils # 0.5 10*3/uL (0.0-0.87); Eosinophils % 3.5 % (0.00-10.9); Hematocrit 41.1 VOL% (42.0-52.0); Hemoglobin 12.8 GM/DL (14.0-18.0); Immature Granulocytes Absolute 0.15 #; Lymphocytes # 2.4 10*3/uL (1.4-4.0); Lymphocytes % 16.1 % (21.2-54.2); Mean Corpuscular HGB Conc 31.1 GM/DL (32-36); Monocytes % 10.2 % (1.7-12.7); Neutrophils % 68.9 % (38.7-73.9); Platelet Count 300 T/CUMM (130-400); Red Blood Count 4.67 MC/CUMM (3.8-5.5); Red Cell Distribution Width 15.7 % (9.3-17.3); White Blood Count 15.2 T/CUMM (4-12)
[2021-03-11 05:16] LABS: Calcium 8.6 MG/DL (8.5-10.1); Osmolality,Calculated 284.3 MOS/KG (273-304); Potassium 4.1 MMOL/L (3.5-5.1)
[2021-03-11] MEDS: metroNIDAZOLE 500 MG TABLET PO SCH ×3 (06:14→22:49)
[2021-03-11] MEDS: PANTOPRAZOLE 40 MG TABLET PO SCH (06:14)
[2021-03-11] MEDS: LEVOTHYROXINE 75 MCG TABLET PO SCH (06:14)
[2021-03-11] MEDS: ALBUTEROL/IPRATROPIUM 3 ML NEB RESP TX SCH ×3 (07:38→11:02)
[2021-03-11] MEDS: INSULIN REGULAR 100 UNIT/ML SUBCUT SCH ×4 (07:44→20:48)
[2021-03-11] MEDS: BENZONATATE 100 MG CAPSULE PO SCH ×3 (08:46→20:48)
[2021-03-11] MEDS: carvediloL 3.125 MG TABLET PO SCH ×2 (08:46→20:48)
[2021-03-11] MEDS: DOCUSATE SODIUM 100 MG CAPSULE PO SCH ×2 (08:46→20:48)
[2021-03-11] MEDS: OLMESARTAN 20 MG TABLET PO SCH (08:46)
[2021-03-11] MEDS: MAGNESIUM OXIDE 400 MG TABLET PO SCH ×2 (08:46→20:48)
[2021-03-11] MEDS: CLOPIDOGREL 75 MG TABLET PO SCH (08:46)
[2021-03-11] MEDS: ISOSORBIDE MONONITRATE 30 MG TABLET PO SCH (08:47)
[2021-03-11] MEDS: POLYETHYLENE GLYCOL POWDER 17 GM PACK PO SCH ×2 (08:47→20:49)
[2021-03-11] MEDS: GLIMEPIRIDE 2 MG TABLET PO SCH (08:47)
[2021-03-11] MEDS: ENOXAPARIN 40 MG/0.4 ML SYRINGE SUBCUT SCH (08:47)
[2021-03-11] MEDS: INSULIN GLARGINE 100 UNIT/ML SUBCUT SCH (08:47)
[2021-03-11] MEDS: methylPREDNISolone SOD SUC 40 MG/1 ML VIAL IV SCH ×2 (09:43→20:47)
[2021-03-11] MEDS: LIDOCAINE 5% PATCH TRANSDERM SCH (09:43)
[2021-03-11] MEDS: LACTULOSE 20 GM/30 ML UDCUP PO SCH ×2 (09:43→20:49)
[2021-03-11] MEDS: NYSTATIN/TRIAMCINOLONE CREAM 15 GM TUBE TOP SCH ×2 (11:41→20:46)
[2021-03-11] MEDS ORDERED: ALBUTEROL/IPRATROPIUM 3 ML NEB RESP TX PRN (14:20)
[2021-03-11] MEDS: ROSUVASTATIN 20 MG TABLET PO SCH (20:48)
[2021-03-11] MEDS: ASPIRIN EC 81 MG TABLET PO SCH (20:48)
[2021-03-12] MEDS: PANTOPRAZOLE 40 MG TABLET PO SCH (05:58)
[2021-03-12] MEDS: LEVOTHYROXINE 75 MCG TABLET PO SCH (05:58)
[2021-03-12] MEDS: metroNIDAZOLE 500 MG TABLET PO SCH ×3 (05:58→21:23)
[2021-03-12] MEDS: INSULIN GLARGINE 100 UNIT/ML SUBCUT SCH (09:47)
[2021-03-12] MEDS: methylPREDNISolone SOD SUC 40 MG/1 ML VIAL IV SCH ×2 (09:48→21:25)
[2021-03-12] MEDS: ENOXAPARIN 40 MG/0.4 ML SYRINGE SUBCUT SCH (09:49)
[2021-03-12] MEDS: MAGNESIUM OXIDE 400 MG TABLET PO SCH ×2 (09:50→21:22)
[2021-03-12] MEDS: CLOPIDOGREL 75 MG TABLET PO SCH (09:50)
[2021-03-12] MEDS: GLIMEPIRIDE 2 MG TABLET PO SCH (09:50)
[2021-03-12] MEDS: OLMESARTAN 20 MG TABLET PO SCH (09:50)
[2021-03-12] MEDS: BENZONATATE 100 MG CAPSULE PO SCH ×3 (09:50→21:23)
[2021-03-12] MEDS: carvediloL 3.125 MG TABLET PO SCH ×2 (09:51→21:23)
[2021-03-12] MEDS: ISOSORBIDE MONONITRATE 30 MG TABLET PO SCH (09:51)
[2021-03-12] MEDS: LIDOCAINE 5% PATCH TRANSDERM SCH (09:53)
[2021-03-12] MEDS: POLYETHYLENE GLYCOL POWDER 17 GM PACK PO SCH ×2 (09:55→21:23)
[2021-03-12] MEDS: DOCUSATE SODIUM 100 MG CAPSULE PO SCH ×2 (09:55→21:23)
[2021-03-12] MEDS: NYSTATIN/TRIAMCINOLONE CREAM 15 GM TUBE TOP SCH ×2 (09:55→21:31)
[2021-03-12] MEDS: LACTULOSE 20 GM/30 ML UDCUP PO SCH ×2 (09:56→21:23)
[2021-03-12] MEDS: INSULIN REGULAR 100 UNIT/ML SUBCUT SCH ×4 (09:56→21:23)
[2021-03-12] MEDS: PIPERACILLIN/TAZOBACTAM 3,375 MG in SODIUM CHLORIDE 0.9% 100 ML IV SCH ×2 (13:08→21:31)
[2021-03-12] MEDS: KETOROLAC 15 MG/1 ML VIAL IV SCH ×2 (15:40→21:30)
[2021-03-12] MEDS: ASPIRIN EC 81 MG TABLET PO SCH (21:22)
[2021-03-12] MEDS: ROSUVASTATIN 20 MG TABLET PO SCH (21:23)
[2021-03-13 05:48] LABS: Basophils % 0.1 % (0.0-0.8); Eosinophils % 0.2 % (0.00-10.9); Hematocrit 39.9 VOL% (42.0-52.0); Hemoglobin 12.4 GM/DL (14.0-18.0); Immature Granulocytes % 0.6 %; Lymphocytes # 1.3 10*3/uL (1.4-4.0); Lymphocytes % 8.4 % (21.2-54.2); Mean Corpuscular HGB Conc 31.1 GM/DL (32-36); Mean Corpuscular Volume 88.7 FL (87-102); Mean Platelet Volume 10.1 FL (9.6-12.0); Monocytes % 3.8 % (1.7-12.7); Neutrophils % 86.9 % (38.7-73.9); Platelet Count 292 T/CUMM (130-400); Red Cell Distribution Width 15.5 % (9.3-17.3); White Blood Count 15.9 T/CUMM (4-12)
[2021-03-13] MEDS: KETOROLAC 15 MG/1 ML VIAL IV SCH ×3 (06:00→21:13)
[2021-03-13] MEDS: PIPERACILLIN/TAZOBACTAM 3,375 MG in SODIUM CHLORIDE 0.9% 100 ML IV SCH ×3 (06:03→21:16)
[2021-03-13 06:11] LABS: Calcium 9.1 MG/DL (8.5-10.1); Osmolality,Calculated 289.8 MOS/KG (273-304); Potassium 5.1 MMOL/L (3.5-5.1)
[2021-03-13] MEDS: metroNIDAZOLE 500 MG TABLET PO SCH ×2 (06:20→15:18)
[2021-03-13] MEDS: LEVOTHYROXINE 75 MCG TABLET PO SCH (06:22)
[2021-03-13] MEDS: PANTOPRAZOLE 40 MG TABLET PO SCH (06:22)
[2021-03-13] MEDS: INSULIN REGULAR 100 UNIT/ML SUBCUT SCH ×4 (09:03→21:15)
[2021-03-13] MEDS ORDERED: DEXTROSE 50% 25 GM/50 ML VIAL IV PRN (09:05)
[2021-03-13] MEDS ORDERED: GLUCAGON 1 MG VIAL IM PRN (09:05)
[2021-03-13] MEDS: INSULIN GLARGINE 100 UNIT/ML SUBCUT SCH (09:10)
[2021-03-13] MEDS: BENZONATATE 100 MG CAPSULE PO SCH ×3 (09:11→21:15)
[2021-03-13] MEDS: methylPREDNISolone SOD SUC 40 MG/1 ML VIAL IV SCH ×2 (09:11→21:15)
[2021-03-13] MEDS: ENOXAPARIN 40 MG/0.4 ML SYRINGE SUBCUT SCH (09:11)
[2021-03-13] MEDS: ISOSORBIDE MONONITRATE 30 MG TABLET PO SCH (09:11)
[2021-03-13] MEDS: MAGNESIUM OXIDE 400 MG TABLET PO SCH ×2 (09:12→21:15)
[2021-03-13] MEDS: GLIMEPIRIDE 2 MG TABLET PO SCH (09:12)
[2021-03-13] MEDS: CLOPIDOGREL 75 MG TABLET PO SCH (09:12)
[2021-03-13] MEDS: carvediloL 3.125 MG TABLET PO SCH ×2 (09:12→21:15)
[2021-03-13] MEDS: OLMESARTAN 20 MG TABLET PO SCH (09:12)
[2021-03-13] MEDS: LACTULOSE 20 GM/30 ML UDCUP PO SCH ×3 (09:12→21:17)
[2021-03-13] MEDS: NYSTATIN/TRIAMCINOLONE CREAM 15 GM TUBE TOP SCH ×2 (09:13→21:15)
[2021-03-13] MEDS: LIDOCAINE 5% PATCH TRANSDERM SCH (09:13)
[2021-03-13] MEDS: POLYETHYLENE GLYCOL POWDER 17 GM PACK PO SCH ×2 (09:13→21:17)
[2021-03-13] MEDS: DOCUSATE SODIUM 100 MG CAPSULE PO SCH ×3 (09:13→21:17)
[2021-03-13] MEDS: metroNIDAZOLE INJ 500 MG/100 ML PREMIX IV SCH (19:25)
[2021-03-13] MEDS: ROSUVASTATIN 20 MG TABLET PO SCH (21:15)
[2021-03-13] MEDS: ASPIRIN EC 81 MG TABLET PO SCH (21:16)
[2021-03-14] MEDS: metroNIDAZOLE INJ 500 MG/100 ML PREMIX IV SCH ×3 (01:30→19:38)
[2021-03-14 05:25] LABS: Basophils % 0.2 % (0.0-0.8); Eosinophils % 0.2 % (0.00-10.9); Hematocrit 37.7 VOL% (42.0-52.0); Hemoglobin 11.8 GM/DL (14.0-18.0); Immature Granulocytes % 0.6 %; Immature Granulocytes Absolute 0.09 #; Lymphocytes # 1.6 10*3/uL (1.4-4.0); Lymphocytes % 9.9 % (21.2-54.2); Mean Corpuscular HGB Conc 31.3 GM/DL (32-36); Mean Corpuscular Volume 88.3 FL (87-102); Monocytes % 4.8 % (1.7-12.7); Neutrophils % 84.3 % (38.7-73.9); Platelet Count 303 T/CUMM (130-400); Red Blood Count 4.27 MC/CUMM (3.8-5.5); Red Cell Distribution Width 15.8 % (9.3-17.3); White Blood Count 15.8 T/CUMM (4-12)
[2021-03-14] MEDS: KETOROLAC 15 MG/1 ML VIAL IV SCH ×3 (05:37→23:14)
[2021-03-14] MEDS: PIPERACILLIN/TAZOBACTAM 3,375 MG in SODIUM CHLORIDE 0.9% 100 ML IV SCH ×3 (05:38→23:14)
[2021-03-14] MEDS: PANTOPRAZOLE 40 MG TABLET PO SCH (05:39)
[2021-03-14] MEDS: LEVOTHYROXINE 75 MCG TABLET PO SCH (05:39)
[2021-03-14 05:54] LABS: Calcium 8.7 MG/DL (8.5-10.1); Potassium 4.7 MMOL/L (3.5-5.1)
[2021-03-14] MEDS: INSULIN REGULAR 100 UNIT/ML SUBCUT SCH ×4 (08:27→21:31)
[2021-03-14] MEDS: GLIMEPIRIDE 2 MG TABLET PO SCH (10:53)
[2021-03-14] MEDS: DOCUSATE SODIUM 100 MG CAPSULE PO SCH ×2 (10:53→21:32)
[2021-03-14] MEDS: carvediloL 3.125 MG TABLET PO SCH ×2 (10:53→21:33)
[2021-03-14] MEDS: LACTULOSE 20 GM/30 ML UDCUP PO SCH ×2 (10:53→21:34)
[2021-03-14] MEDS: OLMESARTAN 20 MG TABLET PO SCH (10:53)
[2021-03-14] MEDS: INSULIN GLARGINE 100 UNIT/ML SUBCUT SCH (10:53)
[2021-03-14] MEDS: ISOSORBIDE MONONITRATE 30 MG TABLET PO SCH (10:53)
[2021-03-14] MEDS: methylPREDNISolone SOD SUC 40 MG/1 ML VIAL IV SCH ×2 (10:54→21:31)
[2021-03-14] MEDS: NYSTATIN/TRIAMCINOLONE CREAM 15 GM TUBE TOP SCH ×2 (10:54→21:33)
[2021-03-14] MEDS: CLOPIDOGREL 75 MG TABLET PO SCH (10:54)
[2021-03-14] MEDS: POLYETHYLENE GLYCOL POWDER 17 GM PACK PO SCH ×2 (10:54→21:33)
[2021-03-14] MEDS: ENOXAPARIN 40 MG/0.4 ML SYRINGE SUBCUT SCH (10:54)
[2021-03-14] MEDS: BENZONATATE 100 MG CAPSULE PO SCH ×3 (10:54→21:32)
[2021-03-14] MEDS: LIDOCAINE 5% PATCH TRANSDERM SCH (10:54)
[2021-03-14] MEDS: MAGNESIUM OXIDE 400 MG TABLET PO SCH ×2 (10:54→21:32)
[2021-03-14] MEDS: ROSUVASTATIN 20 MG TABLET PO SCH (21:32)
[2021-03-14] MEDS: ASPIRIN EC 81 MG TABLET PO SCH (21:32)
[2021-03-15] MEDS: metroNIDAZOLE INJ 500 MG/100 ML PREMIX IV SCH ×3 (03:31→22:01)
[2021-03-15 05:49] LABS: Basophils % 0.2 % (0.0-0.8); Eosinophils # 0.1 10*3/uL (0.0-0.87); Eosinophils % 0.6 % (0.00-10.9); Hemoglobin 11.5 GM/DL (14.0-18.0); Immature Granulocytes Absolute 0.13 #; Lymphocytes # 1.4 10*3/uL (1.4-4.0); Lymphocytes % 10.5 % (21.2-54.2); Mean Corpuscular HGB Conc 31.1 GM/DL (32-36); Mean Corpuscular Volume 88.7 FL (87-102); Monocytes % 5.3 % (1.7-12.7); Neutrophils % 82.4 % (38.7-73.9); Platelet Count 279 T/CUMM (130-400); Red Blood Count 4.17 MC/CUMM (3.8-5.5); Red Cell Distribution Width 15.8 % (9.3-17.3); White Blood Count 13.7 T/CUMM (4-12)
[2021-03-15] MEDS: LEVOTHYROXINE 75 MCG TABLET PO SCH (06:33)
[2021-03-15] MEDS: PANTOPRAZOLE 40 MG TABLET PO SCH (06:33)
[2021-03-15] MEDS: PIPERACILLIN/TAZOBACTAM 3,375 MG in SODIUM CHLORIDE 0.9% 100 ML IV SCH ×2 (06:33→15:29)
[2021-03-15] MEDS: KETOROLAC 15 MG/1 ML VIAL IV SCH ×3 (06:33→22:06)
[2021-03-15] MEDS: BENZONATATE 100 MG CAPSULE PO SCH ×3 (09:34→22:01)
[2021-03-15] MEDS: OLMESARTAN 20 MG TABLET PO SCH (09:34)
[2021-03-15] MEDS: GLIMEPIRIDE 2 MG TABLET PO SCH (09:34)
[2021-03-15] MEDS: ENOXAPARIN 40 MG/0.4 ML SYRINGE SUBCUT SCH (09:34)
[2021-03-15] MEDS: MAGNESIUM OXIDE 400 MG TABLET PO SCH ×2 (09:34→22:02)
[2021-03-15] MEDS: carvediloL 3.125 MG TABLET PO SCH ×2 (09:35→22:02)
[2021-03-15] MEDS: CLOPIDOGREL 75 MG TABLET PO SCH (09:35)
[2021-03-15] MEDS: ISOSORBIDE MONONITRATE 30 MG TABLET PO SCH (09:35)
[2021-03-15] MEDS: DOCUSATE SODIUM 100 MG CAPSULE PO SCH ×2 (09:35→22:02)
[2021-03-15] MEDS: INSULIN GLARGINE 100 UNIT/ML SUBCUT SCH (09:36)
[2021-03-15] MEDS: methylPREDNISolone SOD SUC 40 MG/1 ML VIAL IV SCH ×2 (09:36→22:03)
[2021-03-15] MEDS: POLYETHYLENE GLYCOL POWDER 17 GM PACK PO SCH ×2 (09:44→21:21)
[2021-03-15] MEDS ORDERED: ROPIVACAINE 0.5% 30 ML VIAL NERVEBLOCK ONE (10:24)
[2021-03-15] MEDS ORDERED: TRIAMCINOLONE ACETONIDE 40 MG/1 ML VIAL MISC INJ ONE (10:25)
[2021-03-15] MEDS: LIDOCAINE 5% PATCH TRANSDERM SCH (10:31)
[2021-03-15] MEDS: INSULIN REGULAR 100 UNIT/ML SUBCUT SCH ×4 (10:31→22:02)
[2021-03-15] MEDS: LACTULOSE 20 GM/30 ML UDCUP PO SCH ×2 (10:31→21:20)
[2021-03-15] MEDS: NYSTATIN/TRIAMCINOLONE CREAM 15 GM TUBE TOP SCH ×2 (10:32→22:03)
[2021-03-15] MEDS ORDERED: TUBERCULIN SKIN TEST 0.1 ML SYRINGE INTRADERM ONE (11:16)
[2021-03-15] MEDS: ASPIRIN EC 81 MG TABLET PO SCH (22:02)
[2021-03-15] MEDS: ROSUVASTATIN 20 MG TABLET PO SCH (22:02)
[2021-03-16] MEDS: PIPERACILLIN/TAZOBACTAM 3,375 MG in SODIUM CHLORIDE 0.9% 100 ML IV SCH ×3 (01:00→14:32)
[2021-03-16] MEDS: metroNIDAZOLE INJ 500 MG/100 ML PREMIX IV SCH ×2 (03:35→11:08)
[2021-03-16 06:16] LABS: Basophils % 0.2 % (0.0-0.8); Eosinophils # 0.1 10*3/uL (0.0-0.87); Eosinophils % 0.7 % (0.00-10.9); Hematocrit 37.8 VOL% (42.0-52.0); Immature Granulocytes % 0.5 %; Immature Granulocytes Absolute 0.06 #; Lymphocytes # 1.3 10*3/uL (1.4-4.0); Lymphocytes % 10.6 % (21.2-54.2); Mean Corpuscular HGB Conc 31.7 GM/DL (32-36); Mean Corpuscular Volume 87.1 FL (87-102); Mean Platelet Volume 9.4 FL (9.6-12.0); Monocytes % 6.9 % (1.7-12.7); Neutrophils % 81.1 % (38.7-73.9); Platelet Count 287 T/CUMM (130-400); Red Blood Count 4.34 MC/CUMM (3.8-5.5); Red Cell Distribution Width 15.6 % (9.3-17.3); White Blood Count 12.2 T/CUMM (4-12)
[2021-03-16 06:34] LABS: Alanine Aminotransferase 26 U/L (16-61); Alkaline Phosphatase 51 U/L (45-117); Aspartate Amino Transferase 9 U/L (0-37); Bilirubin,Total < 0.39 MG/DL (0.20-1.00); Blood Urea Nitrogen 33 MG/DL (7-18); Calcium 9.4 MG/DL (8.5-10.1); Carbon Dioxide 28 MMOL/L (21-32); Estimated Glom Filtration Rate 88 ML/MIN; Glucose 195 MG/DL (74-106); Osmolality,Calculated 292.3 MOS/KG (273-304); Potassium 4.5 MMOL/L (3.5-5.1); Sodium 141 MMOL/L (136-145); Total Protein 6.5 G/DL (6.4-8.2)
[2021-03-16] MEDS: KETOROLAC 15 MG/1 ML VIAL IV SCH ×2 (06:34→14:31)
[2021-03-16] MEDS: LEVOTHYROXINE 75 MCG TABLET PO SCH (06:34)
[2021-03-16] MEDS: PANTOPRAZOLE 40 MG TABLET PO SCH (06:34)
[2021-03-16] MEDS: INSULIN REGULAR 100 UNIT/ML SUBCUT SCH ×3 (08:27→15:34)
[2021-03-16] MEDS: MAGNESIUM OXIDE 400 MG TABLET PO SCH (09:17)
[2021-03-16] MEDS: carvediloL 3.125 MG TABLET PO SCH (09:17)
[2021-03-16] MEDS: OLMESARTAN 20 MG TABLET PO SCH (09:17)
[2021-03-16] MEDS: GLIMEPIRIDE 2 MG TABLET PO SCH (09:18)
[2021-03-16] MEDS: ISOSORBIDE MONONITRATE 30 MG TABLET PO SCH (09:18)
[2021-03-16] MEDS: BENZONATATE 100 MG CAPSULE PO SCH ×2 (09:18→14:30)
[2021-03-16] MEDS: methylPREDNISolone SOD SUC 40 MG/1 ML VIAL IV SCH (09:19)
[2021-03-16] MEDS: INSULIN GLARGINE 100 UNIT/ML SUBCUT SCH (09:19)
[2021-03-16] MEDS: ENOXAPARIN 40 MG/0.4 ML SYRINGE SUBCUT SCH (09:19)
[2021-03-16] MEDS: CLOPIDOGREL 75 MG TABLET PO SCH (09:19)
[2021-03-16] MEDS: LACTULOSE 20 GM/30 ML UDCUP PO SCH (09:20)
[2021-03-16] MEDS: POLYETHYLENE GLYCOL POWDER 17 GM PACK PO SCH (09:20)
[2021-03-16] MEDS: LIDOCAINE 5% PATCH TRANSDERM SCH (09:20)
[2021-03-16] MEDS: DOCUSATE SODIUM 100 MG CAPSULE PO SCH (09:20)
[2021-03-16] MEDS: NYSTATIN/TRIAMCINOLONE CREAM 15 GM TUBE TOP SCH (09:20)
[2021-03-16 11:47] VITALS: BP 148/90
== END 2021-03-16 17:28 | DRG 191 ==
LOC: N.ED 02:26 → N.EDINP 02:26 → N.TELES 13:12
PROVIDERS: ADMIT Internal Medicine; ATTEND Internal Medicine

== ENCOUNTER 2021-06-08 17:21 | Inpatient (IN) ==
[2021-06-08 18:32] LABS: Basophils # 0.1 10*3/uL (0.0-0.2); Eosinophils # 0.5 10*3/uL (0.0-0.87); Eosinophils % 4.7 % (0.00-10.9); Hematocrit 44.3 VOL% (42.0-52.0); Hemoglobin 13.7 GM/DL (14.0-18.0); Immature Granulocytes % 0.3 %; Immature Granulocytes Absolute 0.03 #; Lymphocytes # 2.1 10*3/uL (1.4-4.0); Lymphocytes % 20.3 % (21.2-54.2); Mean Corpuscular HGB Conc 30.9 GM/DL (32-36); Monocytes % 9.9 % (1.7-12.7); Neutrophils % 63.8 % (38.7-73.9); Platelet Count 316 T/CUMM (130-400); Red Blood Count 4.87 MC/CUMM (3.8-5.5); White Blood Count 10.1 T/CUMM (4-12)
[2021-06-08 18:42] LABS: PT Patient Result 11.3 SECS (10.5-12.0)
[2021-06-08 19:00] LABS: Albumin 3.7 G/DL (3.4-5.0); Bilirubin,Total 0.4 MG/DL (0.20-1.00); Calcium 9.8 MG/DL (8.5-10.1); Osmolality,Calculated 282.3 MOS/KG (273-304); Total Protein 7.5 G/DL (6.4-8.2)
[2021-06-08] MEDS ORDERED: MORPHINE 2 MG/1 ML SYRINGE IV STA (19:40)
[2021-06-08] MEDS ORDERED: methylPREDNISolone SOD SUC 125 MG/2 ML VIAL IV STA (19:40)
[2021-06-08] MEDS ORDERED: ONDANSETRON 4 MG/2 ML VIAL IV ONE (19:40)
[2021-06-08] MEDS ORDERED: ALBUTEROL/IPRATROPIUM 3 ML NEB RESP TX STA (19:40)
[2021-06-08] MEDS ORDERED: ONDANSETRON 4 MG/2 ML VIAL IV PRN (20:37)
[2021-06-08] MEDS ORDERED: ACETAMINOPHEN 325 MG TABLET PO PRN (20:37)
[2021-06-08] MEDS: SODIUM CHLORIDE 0.9% 1,000 ML IV SCH (21:43)
[2021-06-08] MEDS: LEVOFLOXACIN INJ 500 MG/100 ML PREMIX IV SCH (21:44)
[2021-06-09] MEDS: ALBUTEROL/IPRATROPIUM 3 ML NEB RESP TX SCH ×6 (00:21→19:48)
[2021-06-09] MEDS: methylPREDNISolone SOD SUC 40 MG/1 ML VIAL IV SCH ×3 (04:56→21:15)
[2021-06-09] MEDS: SODIUM CHLORIDE 0.9% 1,000 ML IV SCH ×3 (04:58→21:15)
[2021-06-09 05:01] LABS: Basophils % 0.2 % (0.0-0.8); Hematocrit 37.1 VOL% (42.0-52.0); Hemoglobin 11.6 GM/DL (14.0-18.0); Immature Granulocytes % 0.4 %; Immature Granulocytes Absolute 0.04 #; Lymphocytes # 0.7 10*3/uL (1.4-4.0); Lymphocytes % 7.7 % (21.2-54.2); Mean Corpuscular HGB Conc 31.3 GM/DL (32-36); Mean Corpuscular Volume 90.5 FL (87-102); Mean Platelet Volume 10.2 FL (9.6-12.0); Monocytes % 0.4 % (1.7-12.7); Neutrophils % 91.3 % (38.7-73.9); Platelet Count 275 T/CUMM (130-400); Red Cell Distribution Width 14.6 % (9.3-17.3); White Blood Count 9.4 T/CUMM (4-12)
[2021-06-09 05:24] LABS: Albumin 3.1 G/DL (3.4-5.0); Bilirubin,Total 0.7 MG/DL (0.20-1.00); Calcium 8.9 MG/DL (8.5-10.1); Osmolality,Calculated 290.5 MOS/KG (273-304); Potassium 4.5 MMOL/L (3.5-5.1); Total Protein 6.7 G/DL (6.4-8.2)
[2021-06-09 05:40] LABS: Band Neutrophils 1 % (0-10); Lymphocytes 7 % (20-55); Platelet Estimate Normal; Segmented Neutrophils 91 % (50-85); Total Cells Counted 100
[2021-06-09] MEDS ORDERED: DEXTROSE 50% 25 GM/50 ML VIAL IV PRN (08:20)
[2021-06-09] MEDS ORDERED: GLUCAGON 1 MG VIAL IM PRN (08:20)
[2021-06-09] MEDS ORDERED: NITROGLYCERIN SL 0.4 MG TABLET SL PRN (09:26)
[2021-06-09] MEDS ORDERED: traMADol 50 MG TABLET PO PRN (09:26)
[2021-06-09] MEDS: GLIMEPIRIDE 2 MG TABLET PO SCH (10:21)
[2021-06-09] MEDS: OLMESARTAN 20 MG TABLET PO SCH (10:21)
[2021-06-09] MEDS: CLOPIDOGREL 75 MG TABLET PO SCH (10:22)
[2021-06-09] MEDS: carvediloL 3.125 MG TABLET PO SCH ×2 (10:22→17:47)
[2021-06-09] MEDS: PANTOPRAZOLE 40 MG TABLET PO SCH (10:22)
[2021-06-09] MEDS: ISOSORBIDE MONONITRATE 30 MG TABLET PO SCH (10:22)
[2021-06-09] MEDS: LIDOCAINE 5% PATCH TRANSDERM SCH (10:58)
[2021-06-09] MEDS ORDERED: INSULIN REGULAR 100 UNIT/ML SUBCUT SCH (11:30)
[2021-06-09] MEDS: ENOXAPARIN 40 MG/0.4 ML SYRINGE SUBCUT SCH (13:19)
[2021-06-09] MEDS: INSULIN REGULAR 100 UNIT/ML SUBCUT SCH ×3 (13:31→21:30)
[2021-06-09] MEDS: MAGNESIUM OXIDE 400 MG TABLET PO SCH (21:15)
[2021-06-09] MEDS: ASPIRIN EC 81 MG TABLET PO SCH (21:15)
[2021-06-09] MEDS: LEVOFLOXACIN INJ 500 MG/100 ML PREMIX IV SCH (21:15)
[2021-06-09] MEDS: ROSUVASTATIN 20 MG TABLET PO SCH (21:15)
[2021-06-10] MEDS: ALBUTEROL/IPRATROPIUM 3 ML NEB RESP TX SCH ×6 (01:00→18:35)
[2021-06-10 05:36] LABS: Basophils % 0.1 % (0.0-0.8); Hematocrit 34.9 VOL% (42.0-52.0); Hemoglobin 10.7 GM/DL (14.0-18.0); Immature Granulocytes % 1.1 %; Immature Granulocytes Absolute 0.17 #; Lymphocytes % 6.1 % (21.2-54.2); Mean Corpuscular HGB Conc 30.7 GM/DL (32-36); Mean Corpuscular Volume 91.1 FL (87-102); Mean Platelet Volume 10.4 FL (9.6-12.0); Monocytes % 4.2 % (1.7-12.7); Neutrophils % 88.5 % (38.7-73.9); Platelet Count 283 T/CUMM (130-400); Red Blood Count 3.83 MC/CUMM (3.8-5.5); Red Cell Distribution Width 14.8 % (9.3-17.3); White Blood Count 15.9 T/CUMM (4-12)
[2021-06-10] MEDS: methylPREDNISolone SOD SUC 40 MG/1 ML VIAL IV SCH ×3 (05:50→20:35)
[2021-06-10 06:12] LABS: Calcium 8.9 MG/DL (8.5-10.1); Osmolality,Calculated 296.7 MOS/KG (273-304); Potassium 3.9 MMOL/L (3.5-5.1)
[2021-06-10] MEDS: LEVOTHYROXINE 75 MCG TABLET PO SCH (06:35)
[2021-06-10] MEDS: INSULIN REGULAR 100 UNIT/ML SUBCUT SCH ×4 (08:20→21:10)
[2021-06-10] MEDS ORDERED: LIDOCAINE 5% PATCH TRANSDERM SCH (09:00)
[2021-06-10] MEDS: OLMESARTAN 20 MG TABLET PO SCH (10:16)
[2021-06-10] MEDS: ISOSORBIDE MONONITRATE 30 MG TABLET PO SCH (10:17)
[2021-06-10] MEDS: PANTOPRAZOLE 40 MG TABLET PO SCH (10:17)
[2021-06-10] MEDS: GLIMEPIRIDE 2 MG TABLET PO SCH (10:17)
[2021-06-10] MEDS: carvediloL 3.125 MG TABLET PO SCH ×2 (10:17→16:37)
[2021-06-10] MEDS: CLOPIDOGREL 75 MG TABLET PO SCH (10:17)
[2021-06-10] MEDS: MAGNESIUM OXIDE 400 MG TABLET PO SCH ×2 (10:17→20:35)
[2021-06-10] MEDS: LIDOCAINE 5% PATCH TRANSDERM SCH (12:12)
[2021-06-10] MEDS: SODIUM CHLORIDE 0.9% 1,000 ML IV SCH ×3 (12:30→21:10)
[2021-06-10] MEDS: ENOXAPARIN 40 MG/0.4 ML SYRINGE SUBCUT SCH (13:54)
[2021-06-10] MEDS: ASPIRIN EC 81 MG TABLET PO SCH (20:35)
[2021-06-10] MEDS: ROSUVASTATIN 20 MG TABLET PO SCH (20:35)
[2021-06-10] MEDS: LEVOFLOXACIN INJ 500 MG/100 ML PREMIX IV SCH (21:10)
[2021-06-11] MEDS: ALBUTEROL/IPRATROPIUM 3 ML NEB RESP TX SCH ×7 (00:48→23:39)
[2021-06-11] MEDS: LEVOTHYROXINE 75 MCG TABLET PO SCH (05:30)
[2021-06-11] MEDS: methylPREDNISolone SOD SUC 40 MG/1 ML VIAL IV SCH ×3 (05:30→19:31)
[2021-06-11] MEDS: SODIUM CHLORIDE 0.9% 1,000 ML IV SCH ×2 (06:20→19:31)
[2021-06-11] MEDS: MAGNESIUM OXIDE 400 MG TABLET PO SCH ×2 (09:20→21:33)
[2021-06-11] MEDS: CLOPIDOGREL 75 MG TABLET PO SCH (09:20)
[2021-06-11] MEDS: GLIMEPIRIDE 2 MG TABLET PO SCH (09:20)
[2021-06-11] MEDS: ISOSORBIDE MONONITRATE 30 MG TABLET PO SCH (09:20)
[2021-06-11] MEDS: PANTOPRAZOLE 40 MG TABLET PO SCH (09:20)
[2021-06-11] MEDS: OLMESARTAN 20 MG TABLET PO SCH (09:20)
[2021-06-11] MEDS: carvediloL 3.125 MG TABLET PO SCH ×2 (09:21→19:31)
[2021-06-11] MEDS: LIDOCAINE 5% PATCH TRANSDERM SCH (09:38)
[2021-06-11] MEDS: INSULIN REGULAR 100 UNIT/ML SUBCUT SCH ×4 (09:40→21:34)
[2021-06-11] MEDS: ENOXAPARIN 40 MG/0.4 ML SYRINGE SUBCUT SCH (12:10)
[2021-06-11] MEDS ORDERED: methylPREDNISolone SOD SUC 40 MG/1 ML VIAL IV SCH (17:00)
[2021-06-11 18:39] LABS: Basophils % 0.1 % (0.0-0.8); Eosinophils % 0.1 % (0.00-10.9); Immature Granulocytes % 0.7 %; Immature Granulocytes Absolute 0.11 #; Lymphocytes # 2.6 10*3/uL (1.4-4.0); Lymphocytes % 16.2 % (21.2-54.2); Mean Corpuscular HGB Conc 30.6 GM/DL (32-36); Mean Corpuscular Volume 90.7 FL (87-102); Mean Platelet Volume 10.3 FL (9.6-12.0); Monocytes % 9.8 % (1.7-12.7); Neutrophils % 73.1 % (38.7-73.9); Platelet Count 299 T/CUMM (130-400); Red Blood Count 3.97 MC/CUMM (3.8-5.5); Red Cell Distribution Width 14.8 % (9.3-17.3); White Blood Count 15.9 T/CUMM (4-12)
[2021-06-11] MEDS: KETOROLAC 15 MG/1 ML VIAL IV SCH (21:33)
[2021-06-11] MEDS: ROSUVASTATIN 20 MG TABLET PO SCH (21:33)
[2021-06-11] MEDS: LEVOFLOXACIN INJ 500 MG/100 ML PREMIX IV SCH (21:33)
[2021-06-11] MEDS: ASPIRIN EC 81 MG TABLET PO SCH (21:33)
[2021-06-12] MEDS: SODIUM CHLORIDE 0.9% 1,000 ML IV SCH ×4 (02:04→22:59)
[2021-06-12] MEDS: ALBUTEROL/IPRATROPIUM 3 ML NEB RESP TX SCH ×5 (03:08→19:51)
[2021-06-12] MEDS ORDERED: ROPIVACAINE 0.5% 30 ML VIAL NERVEBLOCK ONE (06:00)
[2021-06-12] MEDS ORDERED: TRIAMCINOLONE ACETONIDE 40 MG/1 ML VIAL MISC INJ ONE (06:00)
[2021-06-12] MEDS: KETOROLAC 15 MG/1 ML VIAL IV SCH ×3 (07:35→22:59)
[2021-06-12] MEDS: LEVOTHYROXINE 75 MCG TABLET PO SCH (07:35)
[2021-06-12] MEDS: methylPREDNISolone SOD SUC 40 MG/1 ML VIAL IV SCH ×2 (07:37→18:35)
[2021-06-12 08:01] LABS: Basophils % 0.2 % (0.0-0.8); Hematocrit 38.2 VOL% (42.0-52.0); Hemoglobin 12.3 GM/DL (14.0-18.0); Immature Granulocytes % 0.8 %; Immature Granulocytes Absolute 0.11 #; Lymphocytes # 1.2 10*3/uL (1.4-4.0); Lymphocytes % 8.9 % (21.2-54.2); Mean Corpuscular HGB Conc 32.2 GM/DL (32-36); Mean Corpuscular Volume 89.3 FL (87-102); Mean Platelet Volume 10.4 FL (9.6-12.0); Neutrophils % 84.1 % (38.7-73.9); Platelet Count 316 T/CUMM (130-400); Red Blood Count 4.28 MC/CUMM (3.8-5.5); Red Cell Distribution Width 14.7 % (9.3-17.3); White Blood Count 13.3 T/CUMM (4-12)
[2021-06-12 08:17] LABS: Calcium 8.8 MG/DL (8.5-10.1); Osmolality,Calculated 291.1 MOS/KG (273-304); Potassium 3.7 MMOL/L (3.5-5.1)
[2021-06-12] MEDS: MAGNESIUM OXIDE 400 MG TABLET PO SCH ×2 (10:36→20:40)
[2021-06-12] MEDS: PANTOPRAZOLE 40 MG TABLET PO SCH (10:36)
[2021-06-12] MEDS: ISOSORBIDE MONONITRATE 30 MG TABLET PO SCH (10:37)
[2021-06-12] MEDS: carvediloL 3.125 MG TABLET PO SCH ×2 (10:38→17:57)
[2021-06-12] MEDS: INSULIN REGULAR 100 UNIT/ML SUBCUT SCH ×4 (10:38→20:41)
[2021-06-12] MEDS: OLMESARTAN 20 MG TABLET PO SCH (10:38)
[2021-06-12] MEDS: GLIMEPIRIDE 2 MG TABLET PO SCH (10:38)
[2021-06-12] MEDS: CLOPIDOGREL 75 MG TABLET PO SCH (10:38)
[2021-06-12] MEDS: LIDOCAINE 5% PATCH TRANSDERM SCH (10:41)
[2021-06-12] MEDS: ENOXAPARIN 40 MG/0.4 ML SYRINGE SUBCUT SCH (13:47)
[2021-06-12] MEDS: ROSUVASTATIN 20 MG TABLET PO SCH (20:40)
[2021-06-12] MEDS: ASPIRIN EC 81 MG TABLET PO SCH (20:40)
[2021-06-12] MEDS: LEVOFLOXACIN INJ 500 MG/100 ML PREMIX IV SCH (22:58)
[2021-06-13] MEDS: ALBUTEROL/IPRATROPIUM 3 ML NEB RESP TX SCH ×5 (00:16→14:40)
[2021-06-13] MEDS: KETOROLAC 15 MG/1 ML VIAL IV SCH ×2 (05:01→14:38)
[2021-06-13] MEDS: methylPREDNISolone SOD SUC 40 MG/1 ML VIAL IV SCH (05:01)
[2021-06-13] MEDS: SODIUM CHLORIDE 0.9% 1,000 ML IV SCH ×2 (06:25→14:38)
[2021-06-13] MEDS: LEVOTHYROXINE 75 MCG TABLET PO SCH (07:06)
[2021-06-13] MEDS: INSULIN REGULAR 100 UNIT/ML SUBCUT SCH ×3 (09:32→17:37)
[2021-06-13] MEDS: OLMESARTAN 20 MG TABLET PO SCH (10:13)
[2021-06-13] MEDS: GLIMEPIRIDE 2 MG TABLET PO SCH (10:14)
[2021-06-13] MEDS: PANTOPRAZOLE 40 MG TABLET PO SCH (10:14)
[2021-06-13] MEDS: carvediloL 3.125 MG TABLET PO SCH ×2 (10:14→17:40)
[2021-06-13] MEDS: ISOSORBIDE MONONITRATE 30 MG TABLET PO SCH (10:14)
[2021-06-13] MEDS: CLOPIDOGREL 75 MG TABLET PO SCH (10:14)
[2021-06-13] MEDS: MAGNESIUM OXIDE 400 MG TABLET PO SCH (10:14)
[2021-06-13 10:45] LABS: Basophils % 0.1 % (0.0-0.8); Eosinophils % 0.4 % (0.00-10.9); Hematocrit 36.6 VOL% (42.0-52.0); Hemoglobin 11.5 GM/DL (14.0-18.0); Immature Granulocytes % 1.2 %; Immature Granulocytes Absolute 0.11 #; Lymphocytes # 1.8 10*3/uL (1.4-4.0); Lymphocytes % 18.8 % (21.2-54.2); Mean Corpuscular HGB Conc 31.4 GM/DL (32-36); Mean Corpuscular Volume 88.4 FL (87-102); Mean Platelet Volume 10.4 FL (9.6-12.0); Monocytes % 11.2 % (1.7-12.7); Neutrophils % 68.3 % (38.7-73.9); Platelet Count 264 T/CUMM (130-400); Red Blood Count 4.14 MC/CUMM (3.8-5.5); Red Cell Distribution Width 14.6 % (9.3-17.3); White Blood Count 9.4 T/CUMM (4-12)
[2021-06-13] MEDS: LIDOCAINE 5% PATCH TRANSDERM SCH (10:51)
[2021-06-13 11:06] LABS: Albumin 2.8 G/DL (3.4-5.0); Bilirubin,Total 0.5 MG/DL (0.20-1.00); Calcium 8.8 MG/DL (8.5-10.1); Osmolality,Calculated 292.1 MOS/KG (273-304); Potassium 3.6 MMOL/L (3.5-5.1); Total Protein 6.2 G/DL (6.4-8.2)
[2021-06-13] MEDS: ENOXAPARIN 40 MG/0.4 ML SYRINGE SUBCUT SCH (12:44)
[2021-06-13] MEDS ORDERED: LIDOCAINE 5% PATCH TRANSDERM SCH (15:17)
[2021-06-13 17:35] VITALS: BP 148/71
== END 2021-06-13 16:16 | disposition home health service (06) | DRG 191 ==
LOC: N.ED 17:21 → N.EDINP 20:33 → N.4E 21:26 → N.2W 06-11 12:56
PROVIDERS: ADMIT Internal Medicine; ATTEND Internal Medicine

== ENCOUNTER 2021-12-21 15:34 | Inpatient (IN) ==
[2021-12-21] MEDS ORDERED: MORPHINE 10 MG/1 ML VIAL IV STA (16:08)
[2021-12-21] MEDS ORDERED: ONDANSETRON 4 MG/2 ML VIAL IV STA (16:08)
[2021-12-21] MEDS ORDERED: MORPHINE 2 MG/1 ML SYRINGE ONE ×2 (16:20)
[2021-12-21 16:40] LABS: Basophils # 0.1 10*3/uL (0.0-0.2); Basophils % 1.1 % (0.0-0.8); Eosinophils # 0.8 10*3/uL (0.0-0.87); Eosinophils % 6.1 % (0.00-10.9); Hematocrit 42.2 VOL% (42.0-52.0); Immature Granulocytes % 0.5 %; Immature Granulocytes Absolute 0.06 #; Lymphocytes # 1.8 10*3/uL (1.4-4.0); Lymphocytes % 14.5 % (21.2-54.2); Mean Corpuscular HGB Conc 30.8 GM/DL (32-36); Mean Platelet Volume 10.1 FL (9.6-12.0); Monocytes % 7.5 % (1.7-12.7); Neutrophils % 70.3 % (38.7-73.9); Platelet Count 333 T/CUMM (130-400); Red Blood Count 4.74 MC/CUMM (3.8-5.5); Red Cell Distribution Width 15.7 % (9.3-17.3); White Blood Count 12.6 T/CUMM (4-12)
[2021-12-21 16:44] LABS: Albumin 3.6 G/DL (3.4-5.0); Bilirubin,Total 0.5 MG/DL (0.20-1.00); Calcium 9.7 MG/DL (8.5-10.1); Osmolality,Calculated 281.5 MOS/KG (273-304); Total Protein 7.9 G/DL (6.4-8.2)
[2021-12-21 16:46] LABS: Potassium 5.2 MMOL/L (3.5-5.1)
[2021-12-21 18:06] LABS: Mucus,Urine Moderate /LPF (Occasional); RBC,Urine 1 /HPF (0-4)
[2021-12-21 18:11] LABS: Urine Appearance Clear (Clear); Urine Color Yellow (Yellow); Urine pH 5.5 (4.5-8.0)
[2021-12-21 18:12] LABS: Bilirubin,Urine Small mg/dL (Negative); Blood, Urine Negative (Negative); Glucose,Urine (UA) 500 mg/dL (Negative); Ketones,Urine Trace mg/dL (Negative); Nitrite,Urine Negative (Negative); Protein,Urine >=300 mg/dL (Negative); Urine Specific Gravity 1.024 (1.001-1.035); Urine Urobilinogen 0.2 eU/dL (<2.0)
[2021-12-21] MEDS ORDERED: AZITHROMYCIN INJ 500 MG in SODIUM CHLORIDE 0.9% 250 ML IV STA (18:32)
[2021-12-21] MEDS ORDERED: cefTRIAXone 2,000 MG in SODIUM CHLORIDE 0.9% 100 ML IV STA (18:32)
[2021-12-21] MEDS ORDERED: ONDANSETRON 4 MG/2 ML VIAL IV PRN (18:33)
[2021-12-21] MEDS ORDERED: GLUCAGON 1 MG VIAL IM PRN (18:33)
[2021-12-21] MEDS ORDERED: ACETAMINOPHEN 325 MG TABLET PO PRN (18:33)
[2021-12-21] MEDS ORDERED: DEXTROSE 10% 250 ML BAG IV PRN (18:38)
[2021-12-22 05:21] LABS: Basophils # 0.1 10*3/uL (0.0-0.2); Basophils % 1.1 % (0.0-0.8); Eosinophils # 0.5 10*3/uL (0.0-0.87); Eosinophils % 5.9 % (0.00-10.9); Hematocrit 38.6 VOL% (42.0-52.0); Hemoglobin 11.9 GM/DL (14.0-18.0); Immature Granulocytes % 0.5 %; Immature Granulocytes Absolute 0.04 #; Lymphocytes # 1.7 10*3/uL (1.4-4.0); Lymphocytes % 19.7 % (21.2-54.2); Mean Corpuscular HGB Conc 30.8 GM/DL (32-36); Mean Corpuscular Volume 89.6 FL (87-102); Mean Platelet Volume 10.3 FL (9.6-12.0); Monocytes % 11.3 % (1.7-12.7); Neutrophils % 61.5 % (38.7-73.9); Platelet Count 305 T/CUMM (130-400); Red Blood Count 4.31 MC/CUMM (3.8-5.5); Red Cell Distribution Width 15.7 % (9.3-17.3); White Blood Count 8.7 T/CUMM (4-12)
[2021-12-22 05:41] LABS: Calcium 8.7 MG/DL (8.5-10.1); Osmolality,Calculated 290.8 MOS/KG (273-304); Potassium 3.7 MMOL/L (3.5-5.1)
[2021-12-22] MEDS ORDERED: NITROGLYCERIN SL 0.4 MG TABLET SL PRN (13:30)
[2021-12-22] MEDS ORDERED: traMADol 50 MG TABLET PO PRN (13:30)
[2021-12-22] MEDS ORDERED: DEXTROSE 10% 250 ML BAG IV PRN (13:42)
[2021-12-22] MEDS: carvediloL 3.125 MG TABLET PO SCH ×2 (14:42→21:20)
[2021-12-22] MEDS: cefTRIAXone 1,000 MG in SODIUM CHLORIDE 0.9% 100 ML IV SCH (14:42)
[2021-12-22] MEDS: ALBUTEROL/IPRATROPIUM 3 ML NEB RESP TX SCH ×3 (15:24→23:10)
[2021-12-22] MEDS: AZITHROMYCIN INJ 500 MG in SODIUM CHLORIDE 0.9% 250 ML IV SCH (16:20)
[2021-12-22] MEDS: methylPREDNISolone SOD SUC 40 MG/1 ML VIAL IV SCH (16:21)
[2021-12-22] MEDS: GLIMEPIRIDE 2 MG TABLET PO SCH (16:21)
[2021-12-22] MEDS: INSULIN LISPRO 100 UNIT/ML SUBCUT SCH ×2 (16:21→21:20)
[2021-12-22] MEDS: CLOPIDOGREL 75 MG TABLET PO SCH (16:21)
[2021-12-22] MEDS: LEVOTHYROXINE 75 MCG TABLET PO SCH (16:21)
[2021-12-22] MEDS: OLMESARTAN 20 MG TABLET PO SCH (16:21)
[2021-12-22] MEDS: ROSUVASTATIN 20 MG TABLET PO SCH (21:20)
[2021-12-23] MEDS: methylPREDNISolone SOD SUC 40 MG/1 ML VIAL IV SCH ×2 (02:20→14:06)
[2021-12-23] MEDS: ALBUTEROL/IPRATROPIUM 3 ML NEB RESP TX SCH ×6 (03:43→23:20)
[2021-12-23] MEDS: LEVOTHYROXINE 75 MCG TABLET PO SCH (05:54)
[2021-12-23 06:32] LABS: Basophils % 0.3 % (0.0-0.8); Hematocrit 40.6 VOL% (42.0-52.0); Hemoglobin 12.6 GM/DL (14.0-18.0); Immature Granulocytes % 0.5 %; Immature Granulocytes Absolute 0.05 #; Lymphocytes # 0.9 10*3/uL (1.4-4.0); Lymphocytes % 8.5 % (21.2-54.2); Mean Corpuscular Volume 89.6 FL (87-102); Monocytes # 0.1 10*3/uL (0.11-0.8); Monocytes % 1.1 % (1.7-12.7); Neutrophils % 89.6 % (38.7-73.9); Platelet Count 302 T/CUMM (130-400); Red Blood Count 4.53 MC/CUMM (3.8-5.5); Red Cell Distribution Width 15.6 % (9.3-17.3)
[2021-12-23 07:08] LABS: Alanine Aminotransferase 17 U/L (16-61); Alkaline Phosphatase 68 U/L (45-117); Aspartate Amino Transferase 11 U/L (0-37); Bilirubin,Total < 0.39 MG/DL (0.20-1.00); Blood Urea Nitrogen 19 MG/DL (7-18); Calcium 9.6 MG/DL (8.5-10.1); Carbon Dioxide 26 MMOL/L (21-32); Chloride 108 MMOL/L (98-107); Estimated Glom Filtration Rate 88 ML/MIN; Glucose 222 MG/DL (74-106); Osmolality,Calculated 287.4 MOS/KG (273-304); Sodium 140 MMOL/L (136-145); Total Protein 7.1 G/DL (6.4-8.2)
[2021-12-23] MEDS: PANTOPRAZOLE 40 MG TABLET PO SCH (08:40)
[2021-12-23] MEDS: GLIMEPIRIDE 2 MG TABLET PO SCH (08:40)
[2021-12-23] MEDS: carvediloL 3.125 MG TABLET PO SCH (08:40)
[2021-12-23] MEDS: INSULIN LISPRO 100 UNIT/ML SUBCUT SCH ×4 (08:40→20:50)
[2021-12-23] MEDS: OLMESARTAN 20 MG TABLET PO SCH (08:40)
[2021-12-23] MEDS: CLOPIDOGREL 75 MG TABLET PO SCH (08:40)
[2021-12-23] MEDS: cefTRIAXone 1,000 MG in SODIUM CHLORIDE 0.9% 100 ML IV SCH (14:06)
[2021-12-23] MEDS: AZITHROMYCIN INJ 500 MG in SODIUM CHLORIDE 0.9% 250 ML IV SCH (15:24)
[2021-12-23] MEDS: ASPIRIN EC 81 MG TABLET PO SCH (20:49)
[2021-12-23] MEDS: ROSUVASTATIN 20 MG TABLET PO SCH (20:49)
[2021-12-23] MEDS: carvediloL 6.25 MG TABLET PO SCH (20:49)
[2021-12-24] MEDS: methylPREDNISolone SOD SUC 40 MG/1 ML VIAL IV SCH ×2 (02:31→18:20)
[2021-12-24] MEDS: ALBUTEROL/IPRATROPIUM 3 ML NEB RESP TX SCH ×5 (02:50→18:55)
[2021-12-24] MEDS: LEVOTHYROXINE 75 MCG TABLET PO SCH (06:00)
[2021-12-24 06:11] LABS: Basophils % 0.2 % (0.0-0.8); Hematocrit 36.7 VOL% (42.0-52.0); Hemoglobin 11.3 GM/DL (14.0-18.0); Immature Granulocytes % 0.7 %; Immature Granulocytes Absolute 0.09 #; Lymphocytes # 1.1 10*3/uL (1.4-4.0); Lymphocytes % 8.5 % (21.2-54.2); Mean Corpuscular HGB Conc 30.8 GM/DL (32-36); Mean Corpuscular Volume 89.7 FL (87-102); Mean Platelet Volume 10.4 FL (9.6-12.0); Monocytes # 0.8 10*3/uL (0.11-0.8); Monocytes % 6.3 % (1.7-12.7); Neutrophils % 84.3 % (38.7-73.9); Platelet Count 299 T/CUMM (130-400); Red Blood Count 4.09 MC/CUMM (3.8-5.5); Red Cell Distribution Width 15.7 % (9.3-17.3); White Blood Count 12.9 T/CUMM (4-12)
[2021-12-24 06:22] LABS: Calcium 9.1 MG/DL (8.5-10.1); Osmolality,Calculated 289.4 MOS/KG (273-304)
[2021-12-24] MEDS: INSULIN LISPRO 100 UNIT/ML SUBCUT SCH ×4 (09:09→20:40)
[2021-12-24] MEDS: CLOPIDOGREL 75 MG TABLET PO SCH (09:10)
[2021-12-24] MEDS: OLMESARTAN 20 MG TABLET PO SCH (09:10)
[2021-12-24] MEDS: carvediloL 6.25 MG TABLET PO SCH ×2 (09:11→20:40)
[2021-12-24] MEDS: PANTOPRAZOLE 40 MG TABLET PO SCH (09:11)
[2021-12-24] MEDS: ISOSORBIDE MONONITRATE 30 MG TABLET PO SCH (09:11)
[2021-12-24] MEDS: GLIMEPIRIDE 2 MG TABLET PO SCH (09:11)
[2021-12-24] MEDS ORDERED: ALBUTEROL/IPRATROPIUM 3 ML NEB RESP TX PRN (18:04)
[2021-12-24] MEDS: cefTRIAXone 1,000 MG in SODIUM CHLORIDE 0.9% 100 ML IV SCH (18:20)
[2021-12-24] MEDS: AZITHROMYCIN INJ 500 MG in SODIUM CHLORIDE 0.9% 250 ML IV SCH (19:01)
[2021-12-24] MEDS: ROSUVASTATIN 20 MG TABLET PO SCH (20:39)
[2021-12-24] MEDS: ASPIRIN EC 81 MG TABLET PO SCH (20:39)
[2021-12-24] MEDS: KETOROLAC 15 MG/1 ML VIAL IV SCH (20:40)
[2021-12-24] MEDS: BENZONATATE 100 MG CAPSULE PO SCH (20:40)
[2021-12-25] MEDS: KETOROLAC 15 MG/1 ML VIAL IV SCH ×4 (01:14→21:15)
[2021-12-25 05:50] LABS: Basophils % 0.2 % (0.0-0.8); Hematocrit 35.4 VOL% (42.0-52.0); Hemoglobin 10.8 GM/DL (14.0-18.0); Immature Granulocytes % 0.5 %; Immature Granulocytes Absolute 0.06 #; Lymphocytes # 1.2 10*3/uL (1.4-4.0); Lymphocytes % 9.5 % (21.2-54.2); Mean Corpuscular HGB Conc 30.5 GM/DL (32-36); Mean Corpuscular Volume 89.6 FL (87-102); Mean Platelet Volume 10.2 FL (9.6-12.0); Monocytes # 0.6 10*3/uL (0.11-0.8); Neutrophils % 84.8 % (38.7-73.9); Platelet Count 331 T/CUMM (130-400); Red Blood Count 3.95 MC/CUMM (3.8-5.5); Red Cell Distribution Width 15.9 % (9.3-17.3); White Blood Count 12.1 T/CUMM (4-12)
[2021-12-25] MEDS: LEVOTHYROXINE 75 MCG TABLET PO SCH (05:56)
[2021-12-25 05:57] LABS: Alanine Aminotransferase 14 U/L (16-61); Alkaline Phosphatase 53 U/L (45-117); Aspartate Amino Transferase 7 U/L (0-37); Bilirubin,Total < 0.39 MG/DL (0.20-1.00); Blood Urea Nitrogen 33 MG/DL (7-18); Calcium 8.7 MG/DL (8.5-10.1); Carbon Dioxide 26 MMOL/L (21-32); Chloride 110 MMOL/L (98-107); Estimated Glom Filtration Rate 64 ML/MIN; Glucose 251 MG/DL (74-106); Potassium 4.2 MMOL/L (3.5-5.1); Sodium 143 MMOL/L (136-145); Total Protein 6.5 G/DL (6.4-8.2)
[2021-12-25] MEDS: methylPREDNISolone SOD SUC 40 MG/1 ML VIAL IV SCH ×2 (05:58→17:10)
[2021-12-25] MEDS: ALBUTEROL/IPRATROPIUM 3 ML NEB RESP TX SCH ×4 (07:20→19:08)
[2021-12-25] MEDS: INSULIN LISPRO 100 UNIT/ML SUBCUT SCH ×4 (08:48→21:16)
[2021-12-25] MEDS: CLOPIDOGREL 75 MG TABLET PO SCH (08:49)
[2021-12-25] MEDS: GLIMEPIRIDE 2 MG TABLET PO SCH (08:49)
[2021-12-25] MEDS: OLMESARTAN 20 MG TABLET PO SCH (08:49)
[2021-12-25] MEDS: PANTOPRAZOLE 40 MG TABLET PO SCH (08:49)
[2021-12-25] MEDS: BENZONATATE 100 MG CAPSULE PO SCH ×2 (08:49→21:15)
[2021-12-25] MEDS: LIDOCAINE 5% PATCH TRANSDERM SCH (08:49)
[2021-12-25] MEDS: ISOSORBIDE MONONITRATE 30 MG TABLET PO SCH (08:49)
[2021-12-25] MEDS: carvediloL 6.25 MG TABLET PO SCH ×2 (08:50→21:14)
[2021-12-25] MEDS ORDERED: ISOSORBIDE MONONITRATE 30 MG TABLET PO SCH (09:00)
[2021-12-25] MEDS: cefTRIAXone 1,000 MG in SODIUM CHLORIDE 0.9% 100 ML IV SCH (17:10)
[2021-12-25] MEDS: AZITHROMYCIN INJ 500 MG in SODIUM CHLORIDE 0.9% 250 ML IV SCH (18:05)
[2021-12-25] MEDS: ROSUVASTATIN 20 MG TABLET PO SCH (21:15)
[2021-12-25] MEDS: ASPIRIN EC 81 MG TABLET PO SCH (21:15)
[2021-12-26] MEDS: KETOROLAC 15 MG/1 ML VIAL IV SCH ×4 (04:38→21:31)
[2021-12-26] MEDS: LEVOTHYROXINE 75 MCG TABLET PO SCH (05:33)
[2021-12-26] MEDS: methylPREDNISolone SOD SUC 40 MG/1 ML VIAL IV SCH ×2 (05:34→16:59)
[2021-12-26] MEDS: ALBUTEROL/IPRATROPIUM 3 ML NEB RESP TX SCH ×4 (07:13→19:55)
[2021-12-26] MEDS ORDERED: ROPIVACAINE 0.5% 30 ML VIAL NERVEBLOCK ONE (07:21)
[2021-12-26] MEDS ORDERED: TRIAMCINOLONE ACETONIDE 40 MG/1 ML VIAL MISC INJ ONE (07:22)
[2021-12-26 07:23] LABS: Basophils % 0.1 % (0.0-0.8); Hematocrit 39.2 VOL% (42.0-52.0); Hemoglobin 11.9 GM/DL (14.0-18.0); Immature Granulocytes Absolute 0.13 #; Lymphocytes # 1.2 10*3/uL (1.4-4.0); Lymphocytes % 9.4 % (21.2-54.2); Mean Corpuscular HGB Conc 30.4 GM/DL (32-36); Mean Corpuscular Volume 91.2 FL (87-102); Mean Platelet Volume 10.6 FL (9.6-12.0); Monocytes # 0.9 10*3/uL (0.11-0.8); Monocytes % 7.1 % (1.7-12.7); Neutrophils % 82.4 % (38.7-73.9); Platelet Count 288 T/CUMM (130-400); Red Cell Distribution Width 15.9 % (9.3-17.3); White Blood Count 13.1 T/CUMM (4-12)
[2021-12-26 07:35] LABS: Calcium 9.2 MG/DL (8.5-10.1); Osmolality,Calculated 291.5 MOS/KG (273-304)
[2021-12-26] MEDS: INSULIN LISPRO 100 UNIT/ML SUBCUT SCH ×4 (10:21→21:32)
[2021-12-26] MEDS: ISOSORBIDE MONONITRATE 30 MG TABLET PO SCH (10:23)
[2021-12-26] MEDS: carvediloL 6.25 MG TABLET PO SCH ×2 (10:23→21:30)
[2021-12-26] MEDS: GLIMEPIRIDE 2 MG TABLET PO SCH (10:23)
[2021-12-26] MEDS: BENZONATATE 100 MG CAPSULE PO SCH ×2 (10:24→21:30)
[2021-12-26] MEDS: OLMESARTAN 20 MG TABLET PO SCH (10:24)
[2021-12-26] MEDS: PANTOPRAZOLE 40 MG TABLET PO SCH (10:24)
[2021-12-26] MEDS: LIDOCAINE 5% PATCH TRANSDERM SCH (10:24)
[2021-12-26] MEDS ORDERED: GLUCAGON 1 MG VIAL IM PRN (11:58)
[2021-12-26] MEDS ORDERED: DEXTROSE 50% 25 GM/50 ML VIAL IV PRN (11:58)
[2021-12-26] MEDS: CLOPIDOGREL 75 MG TABLET PO SCH (12:59)
[2021-12-26] MEDS: cefTRIAXone 1,000 MG in SODIUM CHLORIDE 0.9% 100 ML IV SCH (16:58)
[2021-12-26] MEDS: ROSUVASTATIN 20 MG TABLET PO SCH (21:30)
[2021-12-26] MEDS: ASPIRIN EC 81 MG TABLET PO SCH (21:30)
[2021-12-26] MEDS: AZITHROMYCIN INJ 500 MG in SODIUM CHLORIDE 0.9% 250 ML IV SCH (21:32)
[2021-12-27] MEDS: KETOROLAC 15 MG/1 ML VIAL IV SCH ×4 (03:56→20:20)
[2021-12-27] MEDS: methylPREDNISolone SOD SUC 40 MG/1 ML VIAL IV SCH ×2 (05:57→17:18)
[2021-12-27] MEDS: LEVOTHYROXINE 75 MCG TABLET PO SCH (05:57)
[2021-12-27] MEDS: ALBUTEROL/IPRATROPIUM 3 ML NEB RESP TX SCH ×4 (07:25→19:15)
[2021-12-27] MEDS: INSULIN LISPRO 100 UNIT/ML SUBCUT SCH ×4 (09:21→21:54)
[2021-12-27] MEDS: GLIMEPIRIDE 2 MG TABLET PO SCH (09:22)
[2021-12-27] MEDS: BENZONATATE 100 MG CAPSULE PO SCH ×2 (09:22→20:20)
[2021-12-27] MEDS: CLOPIDOGREL 75 MG TABLET PO SCH (09:22)
[2021-12-27] MEDS: PANTOPRAZOLE 40 MG TABLET PO SCH (09:23)
[2021-12-27] MEDS: carvediloL 6.25 MG TABLET PO SCH ×2 (09:23→20:22)
[2021-12-27] MEDS: OLMESARTAN 20 MG TABLET PO SCH (09:23)
[2021-12-27] MEDS: ISOSORBIDE MONONITRATE 30 MG TABLET PO SCH (09:23)
[2021-12-27] MEDS: LIDOCAINE 5% PATCH TRANSDERM SCH (09:24)
[2021-12-27] MEDS: INSULIN GLARGINE 100 UNIT/ML SUBCUT SCH (14:06)
[2021-12-27] MEDS: cefTRIAXone 1,000 MG in SODIUM CHLORIDE 0.9% 100 ML IV SCH (17:20)
[2021-12-27] MEDS: AZITHROMYCIN INJ 500 MG in SODIUM CHLORIDE 0.9% 250 ML IV SCH (20:18)
[2021-12-27] MEDS: ROSUVASTATIN 20 MG TABLET PO SCH (20:21)
[2021-12-27] MEDS: ASPIRIN EC 81 MG TABLET PO SCH (20:22)
[2021-12-28] MEDS: KETOROLAC 15 MG/1 ML VIAL IV SCH ×3 (03:20→14:36)
[2021-12-28 05:35] LABS: Basophils % 0.1 % (0.0-0.8); Hematocrit 35.7 VOL% (42.0-52.0); Hemoglobin 11.1 GM/DL (14.0-18.0); Immature Granulocytes % 1.2 %; Immature Granulocytes Absolute 0.13 #; Lymphocytes # 1.2 10*3/uL (1.4-4.0); Lymphocytes % 10.5 % (21.2-54.2); Mean Corpuscular HGB Conc 31.1 GM/DL (32-36); Mean Corpuscular Volume 88.6 FL (87-102); Mean Platelet Volume 10.8 FL (9.6-12.0); Monocytes # 0.9 10*3/uL (0.11-0.8); Monocytes % 7.9 % (1.7-12.7); Neutrophils % 80.3 % (38.7-73.9); Platelet Count 302 T/CUMM (130-400); Red Blood Count 4.03 MC/CUMM (3.8-5.5); Red Cell Distribution Width 15.5 % (9.3-17.3); White Blood Count 11.1 T/CUMM (4-12)
[2021-12-28] MEDS: LEVOTHYROXINE 75 MCG TABLET PO SCH (06:00)
[2021-12-28] MEDS: methylPREDNISolone SOD SUC 40 MG/1 ML VIAL IV SCH ×2 (06:00→17:39)
[2021-12-28 06:11] LABS: Calcium 8.7 MG/DL (8.5-10.1); Potassium 4.2 MMOL/L (3.5-5.1)
[2021-12-28] MEDS: ALBUTEROL/IPRATROPIUM 3 ML NEB RESP TX SCH ×3 (07:35→15:45)
[2021-12-28] MEDS: carvediloL 6.25 MG TABLET PO SCH (09:31)
[2021-12-28] MEDS: PANTOPRAZOLE 40 MG TABLET PO SCH (09:31)
[2021-12-28] MEDS: GLIMEPIRIDE 2 MG TABLET PO SCH (09:31)
[2021-12-28] MEDS: BENZONATATE 100 MG CAPSULE PO SCH (09:31)
[2021-12-28] MEDS: ISOSORBIDE MONONITRATE 30 MG TABLET PO SCH (09:31)
[2021-12-28] MEDS: CLOPIDOGREL 75 MG TABLET PO SCH (09:31)
[2021-12-28] MEDS: INSULIN GLARGINE 100 UNIT/ML SUBCUT SCH (09:32)
[2021-12-28] MEDS: INSULIN LISPRO 100 UNIT/ML SUBCUT SCH ×3 (09:33→17:40)
[2021-12-28] MEDS: OLMESARTAN 20 MG TABLET PO SCH (09:35)
[2021-12-28] MEDS: LIDOCAINE 5% PATCH TRANSDERM SCH (09:36)
[2021-12-28 16:29] VITALS: BP 155/70
[2021-12-28] MEDS: cefTRIAXone 1,000 MG in SODIUM CHLORIDE 0.9% 100 ML IV SCH (17:39)
== END 2021-12-28 18:02 | disposition home health service (06) | DRG 194 ==
LOC: N.EDINP 15:34 → N.ED 15:34 → N.3E 20:00
PROVIDERS: ADMIT Internal Medicine; ATTEND Internal Medicine

== ENCOUNTER 2022-03-27 19:00 | Inpatient (IN) ==
[2022-03-27] MEDS ORDERED: SODIUM CHLORIDE 0.9% 500 ML IV STA (19:22)
[2022-03-27] MEDS ORDERED: HEPARIN 5,000 UNIT/1 ML VIAL IV ONE (19:30)
[2022-03-27] MEDS ORDERED: TICAGRELOR 90 MG TABLET PO STA (19:30)
[2022-03-27] MEDS ORDERED: ASPIRIN CHEW 81 MG TABLET PO STA (19:30)
[2022-03-27] MEDS ORDERED: ONDANSETRON 4 MG/2 ML VIAL IV STA (19:46)
[2022-03-27] MEDS ORDERED: MORPHINE 2 MG/1 ML SYRINGE IV STA (19:46)
[2022-03-27] MEDS ORDERED: HEPARIN/NACL 0.9% 2 UNITS/ML 2,000 UNIT/1,000 ML BAG IV ONE (19:55)
[2022-03-27] MEDS ORDERED: HYDROmorphone 1 MG/1 ML SYRINGE ONE (20:01)
[2022-03-27] MEDS ORDERED: MIDAZOLAM 2 MG/2 ML VIAL ONE (20:01)
[2022-03-27 20:04] LABS: Basophils # 0.1 10*3/uL (0.0-0.2); Basophils % 0.9 % (0.0-0.8); Eosinophils # 0.1 10*3/uL (0.0-0.87); Eosinophils % 0.4 % (0.00-10.9); Hematocrit 43.1 VOL% (42.0-52.0); Hemoglobin 13.3 GM/DL (14.0-18.0); Immature Granulocytes % 0.5 %; Immature Granulocytes Absolute 0.08 #; Lymphocytes # 1.8 10*3/uL (1.4-4.0); Lymphocytes % 11.5 % (21.2-54.2); Mean Corpuscular HGB Conc 30.9 GM/DL (32-36); Mean Corpuscular Volume 85.3 FL (87-102); Mean Platelet Volume 10.5 FL (9.6-12.0); Monocytes % 6.3 % (1.7-12.7); Neutrophils % 80.4 % (38.7-73.9); Platelet Count 422 T/CUMM (130-400); Red Blood Count 5.05 MC/CUMM (3.8-5.5); Red Cell Distribution Width 14.3 % (9.3-17.3); White Blood Count 15.3 T/CUMM (4-12)
[2022-03-27 20:23] LABS: INR 1.1; PT Patient Result 11.8 SECS (10.1-12.1)
[2022-03-27] MEDS ORDERED: AMIODARONE 150 MG/3 ML VIAL ONE (20:23)
[2022-03-27 20:26] LABS: Alanine Aminotransferase 14 U/L (16-61); Albumin 3.4 G/DL (3.4-5.0); Alkaline Phosphatase 83 U/L (45-117); Aspartate Amino Transferase 12 U/L (0-37); Bilirubin,Total < 0.39 MG/DL (0.20-1.00); Blood Urea Nitrogen 13 MG/DL (7-18); Calcium 9.6 MG/DL (8.5-10.1); Carbon Dioxide 29 MMOL/L (21-32); Chloride 105 MMOL/L (98-107); Glucose 322 MG/DL (74-106); Osmolality,Calculated 290.4 MOS/KG (273-304); Potassium 4.6 MMOL/L (3.5-5.1); Sodium 140 MMOL/L (136-145); Total Protein 7.6 G/DL (6.4-8.2)
[2022-03-27] MEDS ORDERED: TIROFIBAN 5,000 MCG/100 ML PREMIX IV ONE ×2 (20:33→20:59)
[2022-03-27] MEDS ORDERED: AMIODARONE INJ 450 MG in DEXTROSE 5% 241 ML IV SCH (20:36)
[2022-03-27] MEDS: TIROFIBAN 5,000 MCG/100 ML PREMIX IV SCH (20:42)
[2022-03-27] MEDS ORDERED: ROCURONIUM 100 MG/10 ML VIAL IV ONE (20:50)
[2022-03-27] MEDS ORDERED: ETOMIDATE 20 MG/10 ML VIAL IV ONE (20:50)
[2022-03-27] MEDS ORDERED: VECURONIUM 10 MG VIAL IV ONE (20:51)
[2022-03-27] MEDS ORDERED: PHENYLEPHRINE 50 MG/5 ML VIAL ONE (21:01)
[2022-03-27] MEDS ORDERED: TICAGRELOR 90 MG TABLET ONE (21:26)
[2022-03-27] MEDS: SODIUM CHLORIDE 0.9% 1,000 ML IV SCH (22:05)
[2022-03-27] MEDS ORDERED: LABETALOL 20 MG/4 ML SYRINGE IV ONE (22:14)
[2022-03-27 22:47] LABS: Hyaline Casts,Urine 5 /LPF (0-3); RBC,Urine 14 /HPF (0-4)
[2022-03-27 22:48] LABS: Bilirubin,Urine Negative (Negative); Blood, Urine Large mg/dL (Negative); Glucose,Urine (UA) 500 mg/dL (Negative); Ketones,Urine Negative (Negative); Nitrite,Urine Negative (Negative); Protein,Urine 100 mg/dL (Negative); Urine Appearance Clear (Clear); Urine Color Yellow (Yellow); Urine Urobilinogen 0.2 eU/dL (<2.0)
[2022-03-27 23:43] LABS: CKMB % 4.68 %
[2022-03-27] MEDS ORDERED: LABETALOL 20 MG/4 ML SYRINGE IV PRN (23:44)
[2022-03-27 23:47] LABS: High Sensitive Troponin I* > 125000 ng/L (0-78)
[2022-03-28] MEDS ORDERED: carvediloL 3.125 MG TABLET PO ONE (00:43)
[2022-03-28] MEDS ORDERED: LABETALOL 20 MG/4 ML SYRINGE IV ONE (00:44)
[2022-03-28] MEDS ORDERED: NITROGLYCERIN 2% OINT 1 INCH/GM PACK TOP ONE (00:49)
[2022-03-28] MEDS: INSULIN REGULAR 100 UNIT/ML SUBCUT SCH ×4 (00:52→18:23)
[2022-03-28] MEDS ORDERED: AMIODARONE INJ 450 MG in DEXTROSE 5% 241 ML IV SCH (03:30)
[2022-03-28] MEDS: TIROFIBAN 5,000 MCG/100 ML PREMIX IV SCH (03:39)
[2022-03-28] MEDS: SODIUM CHLORIDE 0.9% 1,000 ML IV SCH ×2 (03:59→15:23)
[2022-03-28 05:56] LABS: Basophils # 0.1 10*3/uL (0.0-0.2); Basophils % 0.4 % (0.0-0.8); Hematocrit 44.8 VOL% (42.0-52.0); Hemoglobin 13.6 GM/DL (14.0-18.0); Immature Granulocytes % 0.5 %; Immature Granulocytes Absolute 0.08 #; Lymphocytes # 1.3 10*3/uL (1.4-4.0); Lymphocytes % 7.9 % (21.2-54.2); Mean Corpuscular HGB Conc 30.4 GM/DL (32-36); Mean Corpuscular Volume 86.3 FL (87-102); Mean Platelet Volume 10.6 FL (9.6-12.0); Monocytes # 1.8 10*3/uL (0.11-0.8); Monocytes % 11.3 % (1.7-12.7); Neutrophils % 79.9 % (38.7-73.9); Platelet Count 374 T/CUMM (130-400); Red Blood Count 5.19 MC/CUMM (3.8-5.5); Red Cell Distribution Width 14.5 % (9.3-17.3); White Blood Count 16.2 T/CUMM (4-12)
[2022-03-28] MEDS: LEVOTHYROXINE 75 MCG TABLET PO SCH (06:12)
[2022-03-28] MEDS: TICAGRELOR 90 MG TABLET PO SCH ×2 (06:13→20:16)
[2022-03-28] MEDS: AMIODARONE INJ 450 MG in DEXTROSE 5% 241 ML IV SCH ×2 (06:14→17:22)
[2022-03-28 06:15] LABS: Calcium 9.2 MG/DL (8.5-10.1); Osmolality,Calculated 294.3 MOS/KG (273-304); Potassium 3.7 MMOL/L (3.5-5.1); Risk Ratio 2.65; VLDL Cholesterol 28.8 MG/DL
[2022-03-28 06:42] LABS: CKMB % 5.46 %
[2022-03-28 06:43] LABS: High Sensitive Troponin I* > 125000 ng/L (0-78)
[2022-03-28] MEDS ORDERED: MAGNESIUM SULF RIDER 4 GM/100 ML PREMIX IV PRN (07:42)
[2022-03-28] MEDS ORDERED: POTASSIUM CHLORIDE 20 MEQ TABLET PO PRN (07:42)
[2022-03-28] MEDS ORDERED: MAGNESIUM SULF RIDER 2 GM/50 ML PREMIX IV PRN (07:42)
[2022-03-28 08:56] LABS: Arterial Base Excess iSTAT 3 MMOL/L (-2.5-2.5); Arterial Bicarbonate iSTAT 28.7 MMOL/L (20-26); Arterial O2 Saturation iSTAT 99 % (95-100); Arterial PCO2 iSTAT 49 MM HG (35-48); Arterial PO2 iSTAT 153 MM HG (80-95); Arterial Total CO2 iSTAT 30 MMO/L (23-27); Arterial pH iSTAT 7.376 (7.35-7.45)
[2022-03-28] MEDS: ARFORMOTEROL 15 MCG/2 ML NEB RESP TX SCH ×2 (09:05→20:16)
[2022-03-28] MEDS: methylPREDNISolone SOD SUC 40 MG/1 ML VIAL IV SCH ×2 (09:20→20:16)
[2022-03-28] MEDS: PANTOPRAZOLE 40 MG VIAL IV SCH (09:20)
[2022-03-28] MEDS: ASPIRIN CHEW 81 MG TABLET PO SCH (09:22)
[2022-03-28] MEDS: carvediloL 6.25 MG TABLET PO SCH ×2 (09:22→20:15)
[2022-03-28] MEDS: FAMOTIDINE 8 MG/ML 50 ML/BOTTLE PO SCH ×2 (09:22→20:25)
[2022-03-28] MEDS: GLIMEPIRIDE 2 MG TABLET PO SCH ×2 (09:22→20:15)
[2022-03-28] MEDS ORDERED: SODIUM CHLORIDE 0.9% 500 ML IV ONE ×2 (11:58→15:22)
[2022-03-28 15:08] LABS: CKMB % 4.15 %
[2022-03-28 15:22] LABS: High Sensitive Troponin I* > 125000 ng/L (0-78)
[2022-03-28] MEDS: ROSUVASTATIN 20 MG TABLET PO SCH (20:15)
[2022-03-28] MEDS: INSULIN GLARGINE 100 UNIT/ML SUBCUT SCH (20:16)
[2022-03-29] MEDS: INSULIN REGULAR 100 UNIT/ML SUBCUT SCH ×5 (00:14→20:25)
[2022-03-29] MEDS: SODIUM CHLORIDE 0.9% 1,000 ML IV SCH ×4 (00:42→23:33)
[2022-03-29] MEDS: LABETALOL 20 MG/4 ML SYRINGE IV PRN ×3 (03:12→10:45)
[2022-03-29] MEDS: MORPHINE 2 MG/1 ML SYRINGE IV PRN ×2 (04:37→10:16)
[2022-03-29] MEDS: LEVOTHYROXINE 75 MCG TABLET PO SCH (06:24)
[2022-03-29] MEDS: ARFORMOTEROL 15 MCG/2 ML NEB RESP TX SCH ×2 (07:45→19:57)
[2022-03-29] MEDS: AMIODARONE INJ 450 MG in DEXTROSE 5% 241 ML IV SCH ×2 (08:08→23:36)
[2022-03-29 08:42] LABS: Arterial Base Excess iSTAT -1 MMOL/L (-2.5-2.5); Arterial Bicarbonate iSTAT 24.7 MMOL/L (20-26); Arterial O2 Saturation iSTAT 99 % (95-100); Arterial PCO2 iSTAT 45 MM HG (35-48); Arterial PO2 iSTAT 140 MM HG (80-95); Arterial Total CO2 iSTAT 26 MMO/L (23-27)
[2022-03-29] MEDS: OLMESARTAN 20 MG TABLET PO SCH (08:52)
[2022-03-29] MEDS: PANTOPRAZOLE 40 MG VIAL IV SCH (08:52)
[2022-03-29] MEDS: TICAGRELOR 90 MG TABLET PO SCH ×2 (08:52→20:27)
[2022-03-29] MEDS: carvediloL 6.25 MG TABLET PO SCH ×2 (08:52→20:27)
[2022-03-29] MEDS: AMIODARONE 200 MG TABLET PO SCH ×2 (08:52→20:27)
[2022-03-29] MEDS: FAMOTIDINE 8 MG/ML 50 ML/BOTTLE PO SCH ×2 (08:52→20:27)
[2022-03-29] MEDS: ASPIRIN CHEW 81 MG TABLET PO SCH (08:52)
[2022-03-29] MEDS: GLIMEPIRIDE 2 MG TABLET PO SCH ×2 (08:52→20:26)
[2022-03-29] MEDS: methylPREDNISolone SOD SUC 40 MG/1 ML VIAL IV SCH ×2 (08:53→20:29)
[2022-03-29] MEDS: ENOXAPARIN 40 MG/0.4 ML SYRINGE SUBCUT SCH (10:20)
[2022-03-29] MEDS: ISOSORBIDE MONONITRATE 30 MG TABLET PO SCH (12:08)
[2022-03-29] MEDS ORDERED: ALUM/MAG/SIMETH/LIDO VISC 1:1 30 ML BOTTLE PO ONE (12:27)
[2022-03-29] MEDS ORDERED: NITROGLYCERIN 2% OINT 1 INCH/GM PACK TOP ONE (13:00)
[2022-03-29] MEDS ORDERED: hydrALAZINE 20 MG/1 ML VIAL IV ONE (13:00)
[2022-03-29] MEDS ORDERED: MORPHINE 2 MG/1 ML SYRINGE IV ONE (13:09)
[2022-03-29] MEDS ORDERED: KETOROLAC 30 MG/1 ML VIAL IV ONE (13:14)
[2022-03-29 14:23] LABS: Calcium 8.5 MG/DL (8.5-10.1); Potassium 4.3 MMOL/L (3.5-5.1)
[2022-03-29] MEDS: HYDROmorphone 1 MG/1 ML SYRINGE IV PRN ×2 (14:26→23:31)
[2022-03-29] MEDS ORDERED: GABAPENTIN 100 MG CAPSULE PO SCH (16:00)
[2022-03-29] MEDS: INSULIN GLARGINE 100 UNIT/ML SUBCUT SCH (20:25)
[2022-03-29] MEDS: ROSUVASTATIN 20 MG TABLET PO SCH (20:27)
[2022-03-30] MEDS: guaiFENesin 200 MG/10 ML UDCUP PO PRN ×2 (01:01→20:16)
[2022-03-30 04:15] LABS: Basophils % 0.1 % (0.0-0.8); Hematocrit 35.3 VOL% (42.0-52.0); Hemoglobin 10.7 GM/DL (14.0-18.0); Immature Granulocytes % 0.9 %; Immature Granulocytes Absolute 0.15 #; Lymphocytes # 0.6 10*3/uL (1.4-4.0); Lymphocytes % 3.3 % (21.2-54.2); Mean Corpuscular HGB Conc 30.3 GM/DL (32-36); Mean Corpuscular Volume 86.9 FL (87-102); Mean Platelet Volume 10.4 FL (9.6-12.0); Monocytes # 0.7 10*3/uL (0.11-0.8); Monocytes % 4.3 % (1.7-12.7); Neutrophils % 91.4 % (38.7-73.9); Platelet Count 267 T/CUMM (130-400); Red Blood Count 4.06 MC/CUMM (3.8-5.5); White Blood Count 17.1 T/CUMM (4-12)
[2022-03-30 04:31] LABS: Calcium 8.4 MG/DL (8.5-10.1)
[2022-03-30 04:53] LABS: Lymphocytes 3 % (20-55); Microcytosis Slight; Total Cells Counted 100
[2022-03-30 04:55] LABS: Hypochromia Slight
[2022-03-30] MEDS: LEVOTHYROXINE 75 MCG TABLET PO SCH (06:52)
[2022-03-30] MEDS: HYDROmorphone 1 MG/1 ML SYRINGE IV PRN ×2 (07:19→22:49)
[2022-03-30] MEDS: ARFORMOTEROL 15 MCG/2 ML NEB RESP TX SCH ×2 (07:25→19:44)
[2022-03-30] MEDS: INSULIN REGULAR 100 UNIT/ML SUBCUT SCH ×4 (08:33→20:18)
[2022-03-30] MEDS: methylPREDNISolone SOD SUC 40 MG/1 ML VIAL IV SCH ×2 (08:33→20:17)
[2022-03-30] MEDS: TICAGRELOR 90 MG TABLET PO SCH ×2 (08:34→20:16)
[2022-03-30] MEDS: OLMESARTAN 20 MG TABLET PO SCH (08:34)
[2022-03-30] MEDS: AMIODARONE 200 MG TABLET PO SCH ×3 (08:34→20:19)
[2022-03-30] MEDS: carvediloL 6.25 MG TABLET PO SCH ×2 (08:34→20:15)
[2022-03-30] MEDS: PANTOPRAZOLE 40 MG VIAL IV SCH (08:34)
[2022-03-30] MEDS: GLIMEPIRIDE 2 MG TABLET PO SCH ×2 (08:34→20:16)
[2022-03-30] MEDS: ISOSORBIDE MONONITRATE 30 MG TABLET PO SCH (08:34)
[2022-03-30] MEDS: FAMOTIDINE 8 MG/ML 50 ML/BOTTLE PO SCH ×2 (08:35→20:19)
[2022-03-30] MEDS: ASPIRIN CHEW 81 MG TABLET PO SCH (08:35)
[2022-03-30] MEDS: SODIUM CHLORIDE 0.9% 1,000 ML IV SCH ×2 (09:20→17:25)
[2022-03-30] MEDS: ENOXAPARIN 40 MG/0.4 ML SYRINGE SUBCUT SCH (09:30)
[2022-03-30] MEDS: AMIODARONE INJ 450 MG in DEXTROSE 5% 241 ML IV SCH (15:48)
[2022-03-30] MEDS: GABAPENTIN 100 MG CAPSULE PO PRN (20:15)
[2022-03-30] MEDS: ROSUVASTATIN 20 MG TABLET PO SCH (20:16)
[2022-03-30] MEDS: INSULIN GLARGINE 100 UNIT/ML SUBCUT SCH (20:18)
[2022-03-31] MEDS: guaiFENesin 200 MG/10 ML UDCUP PO PRN ×4 (00:50→23:22)
[2022-03-31] MEDS: SODIUM CHLORIDE 0.9% 1,000 ML IV SCH ×2 (02:00→11:58)
[2022-03-31] MEDS: MORPHINE 2 MG/1 ML SYRINGE IV PRN ×2 (03:21→23:23)
[2022-03-31] MEDS: AMIODARONE INJ 450 MG in DEXTROSE 5% 241 ML IV SCH (05:18)
[2022-03-31] MEDS: LEVOTHYROXINE 75 MCG TABLET PO SCH (05:35)
[2022-03-31] MEDS: ARFORMOTEROL 15 MCG/2 ML NEB RESP TX SCH ×2 (07:33→19:20)
[2022-03-31] MEDS: PANTOPRAZOLE 40 MG VIAL IV SCH (08:22)
[2022-03-31] MEDS: methylPREDNISolone SOD SUC 40 MG/1 ML VIAL IV SCH ×2 (08:23→20:17)
[2022-03-31] MEDS: OLMESARTAN 20 MG TABLET PO SCH (08:24)
[2022-03-31] MEDS: AMIODARONE 200 MG TABLET PO SCH ×2 (08:24→20:16)
[2022-03-31] MEDS: ISOSORBIDE MONONITRATE 30 MG TABLET PO SCH (08:24)
[2022-03-31] MEDS: ASPIRIN CHEW 81 MG TABLET PO SCH (08:24)
[2022-03-31] MEDS: TICAGRELOR 90 MG TABLET PO SCH ×2 (08:24→20:16)
[2022-03-31] MEDS: carvediloL 6.25 MG TABLET PO SCH ×2 (08:25→20:16)
[2022-03-31] MEDS: GLIMEPIRIDE 2 MG TABLET PO SCH ×2 (08:25→20:15)
[2022-03-31] MEDS: INSULIN REGULAR 100 UNIT/ML SUBCUT SCH ×4 (08:27→20:17)
[2022-03-31] MEDS: FAMOTIDINE 8 MG/ML 50 ML/BOTTLE PO SCH ×2 (08:27→20:15)
[2022-03-31] MEDS: ENOXAPARIN 40 MG/0.4 ML SYRINGE SUBCUT SCH (10:31)
[2022-03-31] MEDS: GABAPENTIN 100 MG CAPSULE PO PRN (20:16)
[2022-03-31] MEDS: ROSUVASTATIN 20 MG TABLET PO SCH (20:16)
[2022-03-31] MEDS: INSULIN GLARGINE 100 UNIT/ML SUBCUT SCH (20:17)
[2022-04-01] MEDS: LABETALOL 20 MG/4 ML SYRINGE IV PRN (00:29)
[2022-04-01] MEDS: AMIODARONE INJ 450 MG in DEXTROSE 5% 241 ML IV SCH ×2 (00:49→12:45)
[2022-04-01] MEDS: SODIUM CHLORIDE 0.9% 1,000 ML IV SCH (04:25)
[2022-04-01] MEDS: LEVOTHYROXINE 75 MCG TABLET PO SCH (05:54)
[2022-04-01] MEDS: ARFORMOTEROL 15 MCG/2 ML NEB RESP TX SCH ×2 (06:50→19:18)
[2022-04-01] MEDS: guaiFENesin 200 MG/10 ML UDCUP PO PRN ×2 (08:04→21:17)
[2022-04-01] MEDS: ASPIRIN CHEW 81 MG TABLET PO SCH (08:04)
[2022-04-01] MEDS: PANTOPRAZOLE 40 MG VIAL IV SCH (08:04)
[2022-04-01] MEDS: AMIODARONE 200 MG TABLET PO SCH ×2 (08:05→21:17)
[2022-04-01] MEDS: GLIMEPIRIDE 2 MG TABLET PO SCH ×2 (08:05→21:18)
[2022-04-01] MEDS: TICAGRELOR 90 MG TABLET PO SCH ×2 (08:05→21:17)
[2022-04-01] MEDS: carvediloL 6.25 MG TABLET PO SCH ×2 (08:05→21:17)
[2022-04-01] MEDS: ISOSORBIDE MONONITRATE 30 MG TABLET PO SCH (08:05)
[2022-04-01] MEDS: methylPREDNISolone SOD SUC 40 MG/1 ML VIAL IV SCH ×2 (08:06→21:18)
[2022-04-01] MEDS: FAMOTIDINE 8 MG/ML 50 ML/BOTTLE PO SCH ×2 (08:06→23:09)
[2022-04-01] MEDS: OLMESARTAN 20 MG TABLET PO SCH (08:06)
[2022-04-01] MEDS: MORPHINE 2 MG/1 ML SYRINGE IV PRN (08:37)
[2022-04-01] MEDS: INSULIN REGULAR 100 UNIT/ML SUBCUT SCH ×4 (08:37→21:18)
[2022-04-01 09:01] LABS: Basophils % 0.1 % (0.0-0.8); Hematocrit 38.7 VOL% (42.0-52.0); Hemoglobin 11.8 GM/DL (14.0-18.0); Immature Granulocytes % 0.9 %; Immature Granulocytes Absolute 0.11 #; Lymphocytes # 0.5 10*3/uL (1.4-4.0); Lymphocytes % 3.8 % (21.2-54.2); Mean Corpuscular HGB Conc 30.5 GM/DL (32-36); Mean Corpuscular Volume 86.2 FL (87-102); Mean Platelet Volume 10.4 FL (9.6-12.0); Monocytes # 1.2 10*3/uL (0.11-0.8); Monocytes % 9.3 % (1.7-12.7); Neutrophils % 85.9 % (38.7-73.9); Platelet Count 367 T/CUMM (130-400); Red Blood Count 4.49 MC/CUMM (3.8-5.5); Red Cell Distribution Width 15.6 % (9.3-17.3); White Blood Count 12.8 T/CUMM (4-12)
[2022-04-01 09:15] LABS: Calcium 8.6 MG/DL (8.5-10.1); Osmolality,Calculated 298.6 MOS/KG (273-304); Potassium 3.7 MMOL/L (3.5-5.1)
[2022-04-01 09:26] LABS: Hypochromia Slight; Lymphocytes 4 % (20-55); Microcytosis Slight; Platelet Estimate Adequate; Total Cells Counted 100
[2022-04-01] MEDS: ENOXAPARIN 40 MG/0.4 ML SYRINGE SUBCUT SCH (10:44)
[2022-04-01] MEDS: ALBUTEROL/IPRATROPIUM 3 ML NEB RESP TX PRN (12:45)
[2022-04-01] MEDS: ROSUVASTATIN 20 MG TABLET PO SCH (21:17)
[2022-04-01] MEDS: INSULIN GLARGINE 100 UNIT/ML SUBCUT SCH (21:18)
[2022-04-02] MEDS: ALBUTEROL/IPRATROPIUM 3 ML NEB RESP TX PRN (04:50)
[2022-04-02 05:24] LABS: Basophils % 0.1 % (0.0-0.8); Hematocrit 37.9 VOL% (42.0-52.0); Hemoglobin 11.6 GM/DL (14.0-18.0); Immature Granulocytes % 0.9 %; Immature Granulocytes Absolute 0.11 #; Lymphocytes # 0.3 10*3/uL (1.4-4.0); Lymphocytes % 2.5 % (21.2-54.2); Mean Corpuscular HGB Conc 30.6 GM/DL (32-36); Mean Corpuscular Volume 85.9 FL (87-102); Mean Platelet Volume 10.5 FL (9.6-12.0); Monocytes # 0.8 10*3/uL (0.11-0.8); Monocytes % 7.1 % (1.7-12.7); Neutrophils % 89.4 % (38.7-73.9); Platelet Count 355 T/CUMM (130-400); Red Blood Count 4.41 MC/CUMM (3.8-5.5); Red Cell Distribution Width 15.5 % (9.3-17.3); White Blood Count 11.8 T/CUMM (4-12)
[2022-04-02 05:43] LABS: Calcium 8.9 MG/DL (8.5-10.1); Osmolality,Calculated 297.8 MOS/KG (273-304); Potassium 3.5 MMOL/L (3.5-5.1)
[2022-04-02 05:50] LABS: Hypochromia Slight; Lymphocytes 1 % (20-55); Microcytosis Slight; Platelet Estimate Adequate; Total Cells Counted 100
[2022-04-02] MEDS: LEVOTHYROXINE 75 MCG TABLET PO SCH (06:09)
[2022-04-02] MEDS: ARFORMOTEROL 15 MCG/2 ML NEB RESP TX SCH ×2 (06:58→20:05)
[2022-04-02] MEDS: OLMESARTAN 20 MG TABLET PO SCH (09:18)
[2022-04-02] MEDS: ASPIRIN CHEW 81 MG TABLET PO SCH (09:18)
[2022-04-02] MEDS: SPIRONOLACTONE 25 MG TABLET PO SCH (09:19)
[2022-04-02] MEDS: PANTOPRAZOLE 40 MG TABLET PO SCH (09:19)
[2022-04-02] MEDS: AMIODARONE 200 MG TABLET PO SCH ×2 (09:19→21:06)
[2022-04-02] MEDS: DAPAGLIFLOZIN 10 MG TABLET PO SCH (09:19)
[2022-04-02] MEDS: carvediloL 6.25 MG TABLET PO SCH ×2 (09:19→21:06)
[2022-04-02] MEDS: TICAGRELOR 90 MG TABLET PO SCH ×2 (09:19→21:06)
[2022-04-02] MEDS: ISOSORBIDE MONONITRATE 30 MG TABLET PO SCH (09:19)
[2022-04-02] MEDS: ENOXAPARIN 40 MG/0.4 ML SYRINGE SUBCUT SCH (09:20)
[2022-04-02] MEDS: methylPREDNISolone SOD SUC 40 MG/1 ML VIAL IV SCH ×2 (09:20→21:07)
[2022-04-02] MEDS: LIDOCAINE 5% PATCH TRANSDERM SCH (09:21)
[2022-04-02] MEDS: INSULIN REGULAR 100 UNIT/ML SUBCUT SCH ×4 (11:11→21:07)
[2022-04-02] MEDS: ROSUVASTATIN 20 MG TABLET PO SCH (21:06)
[2022-04-02] MEDS: INSULIN GLARGINE 100 UNIT/ML SUBCUT SCH (21:07)
[2022-04-02] MEDS: guaiFENesin 200 MG/10 ML UDCUP PO PRN (21:12)
[2022-04-03 04:51] LABS: Basophils % 0.1 % (0.0-0.8); Hematocrit 35.8 VOL% (42.0-52.0); Hemoglobin 10.9 GM/DL (14.0-18.0); Immature Granulocytes % 0.8 %; Lymphocytes # 0.3 10*3/uL (1.4-4.0); Mean Corpuscular HGB Conc 30.4 GM/DL (32-36); Mean Corpuscular Volume 85.4 FL (87-102); Mean Platelet Volume 10.9 FL (9.6-12.0); Monocytes # 0.7 10*3/uL (0.11-0.8); Monocytes % 5.3 % (1.7-12.7); Neutrophils % 91.8 % (38.7-73.9); Platelet Count 297 T/CUMM (130-400); Red Blood Count 4.19 MC/CUMM (3.8-5.5); Red Cell Distribution Width 15.6 % (9.3-17.3); White Blood Count 12.7 T/CUMM (4-12)
[2022-04-03 05:05] LABS: Calcium 8.6 MG/DL (8.5-10.1); Osmolality,Calculated 292.7 MOS/KG (273-304)
[2022-04-03 05:20] LABS: Band Neutrophils 1 % (0-10); Hypochromia 1+; Lymphocytes 1 % (20-55); Total Cells Counted 100
[2022-04-03 05:21] LABS: Microcytosis 1+; Platelet Estimate Normal
[2022-04-03] MEDS: LEVOTHYROXINE 75 MCG TABLET PO SCH (06:19)
[2022-04-03] MEDS: INSULIN REGULAR 100 UNIT/ML SUBCUT SCH ×4 (07:55→21:42)
[2022-04-03] MEDS: LIDOCAINE 5% PATCH TRANSDERM SCH (08:40)
[2022-04-03] MEDS: methylPREDNISolone SOD SUC 40 MG/1 ML VIAL IV SCH ×2 (08:41→21:41)
[2022-04-03] MEDS: DAPAGLIFLOZIN 10 MG TABLET PO SCH (08:42)
[2022-04-03] MEDS: ASPIRIN CHEW 81 MG TABLET PO SCH (08:42)
[2022-04-03] MEDS: ENOXAPARIN 40 MG/0.4 ML SYRINGE SUBCUT SCH (08:42)
[2022-04-03] MEDS: TICAGRELOR 90 MG TABLET PO SCH ×2 (08:43→21:41)
[2022-04-03] MEDS: AMIODARONE 200 MG TABLET PO SCH ×2 (08:43→21:41)
[2022-04-03] MEDS: OLMESARTAN 20 MG TABLET PO SCH (08:43)
[2022-04-03] MEDS: carvediloL 6.25 MG TABLET PO SCH ×2 (08:43→21:41)
[2022-04-03] MEDS: ISOSORBIDE MONONITRATE 30 MG TABLET PO SCH (08:43)
[2022-04-03] MEDS: PANTOPRAZOLE 40 MG TABLET PO SCH (08:43)
[2022-04-03] MEDS: SPIRONOLACTONE 25 MG TABLET PO SCH (08:43)
[2022-04-03] MEDS: ALBUTEROL/IPRATROPIUM 3 ML NEB RESP TX PRN ×2 (09:30→13:45)
[2022-04-03] MEDS: ARFORMOTEROL 15 MCG/2 ML NEB RESP TX SCH ×2 (11:46→19:30)
[2022-04-03] MEDS ORDERED: FUROSEMIDE 40 MG/4 ML VIAL IV ONE (11:58)
[2022-04-03] MEDS: ROSUVASTATIN 20 MG TABLET PO SCH (21:41)
[2022-04-03] MEDS: INSULIN GLARGINE 100 UNIT/ML SUBCUT SCH (21:42)
[2022-04-03] MEDS: guaiFENesin 200 MG/10 ML UDCUP PO PRN (22:13)
[2022-04-04 04:13] LABS: Basophils % 0.1 % (0.0-0.8); Hematocrit 34.9 VOL% (42.0-52.0); Hemoglobin 10.7 GM/DL (14.0-18.0); Immature Granulocytes % 0.9 %; Immature Granulocytes Absolute 0.11 #; Lymphocytes # 0.3 10*3/uL (1.4-4.0); Lymphocytes % 2.5 % (21.2-54.2); Mean Corpuscular HGB Conc 30.7 GM/DL (32-36); Mean Corpuscular Volume 84.5 FL (87-102); Mean Platelet Volume 10.9 FL (9.6-12.0); Monocytes # 0.6 10*3/uL (0.11-0.8); Monocytes % 4.8 % (1.7-12.7); Neutrophils % 91.7 % (38.7-73.9); Platelet Count 279 T/CUMM (130-400); Red Blood Count 4.13 MC/CUMM (3.8-5.5); Red Cell Distribution Width 15.5 % (9.3-17.3); White Blood Count 12.3 T/CUMM (4-12)
[2022-04-04 04:32] LABS: Calcium 8.7 MG/DL (8.5-10.1); Osmolality,Calculated 295.7 MOS/KG (273-304); Potassium 3.3 MMOL/L (3.5-5.1)
[2022-04-04 04:45] LABS: Lymphocytes 3 % (20-55); Platelet Estimate Adequate; Total Cells Counted 100
[2022-04-04 04:46] LABS: Hypochromia Slight; Microcytosis Slight
[2022-04-04] MEDS: LEVOTHYROXINE 75 MCG TABLET PO SCH (06:21)
[2022-04-04] MEDS: ARFORMOTEROL 15 MCG/2 ML NEB RESP TX SCH (07:20)
[2022-04-04] MEDS: INSULIN REGULAR 100 UNIT/ML SUBCUT SCH (11:13)
[2022-04-04] MEDS: SPIRONOLACTONE 25 MG TABLET PO SCH (11:14)
[2022-04-04] MEDS: OLMESARTAN 20 MG TABLET PO SCH (11:14)
[2022-04-04] MEDS: ASPIRIN CHEW 81 MG TABLET PO SCH (11:14)
[2022-04-04] MEDS: AMIODARONE 200 MG TABLET PO SCH (11:15)
[2022-04-04] MEDS: DAPAGLIFLOZIN 10 MG TABLET PO SCH (11:15)
[2022-04-04] MEDS: TICAGRELOR 90 MG TABLET PO SCH (11:15)
[2022-04-04] MEDS: ISOSORBIDE MONONITRATE 30 MG TABLET PO SCH (11:15)
[2022-04-04] MEDS: carvediloL 6.25 MG TABLET PO SCH (11:15)
[2022-04-04] MEDS: LIDOCAINE 5% PATCH TRANSDERM SCH (11:16)
[2022-04-04] MEDS: PANTOPRAZOLE 40 MG TABLET PO SCH (11:19)
[2022-04-04] MEDS: ENOXAPARIN 40 MG/0.4 ML SYRINGE SUBCUT SCH (11:19)
[2022-04-04] MEDS: methylPREDNISolone SOD SUC 40 MG/1 ML VIAL IV SCH (11:22)
[2022-04-04 12:06] VITALS: BP 118/62
== END 2022-04-04 14:55 | disposition swing bed (61) | DRG 246 ==
LOC: N.ED 19:00 → N.ICU 20:00 → SUATTDRO 21:06 → N.TELES 04-01 17:43
PROVIDERS: ADMIT Internal Medicine Cardiovascular Disease; ATTEND Internal Medicine Cardiovascular Disease
PROC: CLCCHCL (ICD-10-PCS; 2022-03-27 20:45)

== ENCOUNTER 2022-04-07 03:50 | Inpatient (IN) ==
[2022-04-07] MEDS ORDERED: ALBUTEROL/IPRATROPIUM 3 ML NEB RESP TX STA (04:45)
[2022-04-07] MEDS ORDERED: methylPREDNISolone SOD SUC 125 MG/2 ML VIAL IV STA (04:45)
[2022-04-07 05:08] LABS: Arterial Base Excess iSTAT 5 MMOL/L (-2.5-2.5); Arterial Bicarbonate iSTAT 29.1 MMOL/L (20-26); Arterial O2 Saturation iSTAT 97 % (95-100); Arterial PCO2 iSTAT 40 MM HG (35-48); Arterial PO2 iSTAT 84 MM HG (80-95); Arterial Total CO2 iSTAT 30 MMO/L (23-27); Arterial pH iSTAT 7.474 (7.35-7.45)
[2022-04-07 05:56] LABS: Basophils % 0.2 % (0.0-0.8); Hematocrit 38.5 VOL% (42.0-52.0); Hemoglobin 11.9 GM/DL (14.0-18.0); Immature Granulocytes Absolute 0.56 #; Lymphocytes # 0.5 10*3/uL (1.4-4.0); Lymphocytes % 2.9 % (21.2-54.2); Mean Corpuscular HGB Conc 30.9 GM/DL (32-36); Mean Platelet Volume 10.6 FL (9.6-12.0); Monocytes # 1.3 10*3/uL (0.11-0.8); Monocytes % 6.8 % (1.7-12.7); Neutrophils % 87.1 % (38.7-73.9); Platelet Count 308 T/CUMM (130-400); Red Blood Count 4.53 MC/CUMM (3.8-5.5); Red Cell Distribution Width 15.5 % (9.3-17.3); White Blood Count 18.5 T/CUMM (4-12)
[2022-04-07 05:58] LABS: PT Patient Result 11.4 SECS (10.1-12.1); Partial Thromboplastin Time 34.9 SECS (23.7-32.9)
[2022-04-07 05:59] LABS: Albumin 2.6 G/DL (3.4-5.0); Bilirubin,Total 0.6 MG/DL (0.20-1.00); Calcium 8.7 MG/DL (8.5-10.1); Osmolality,Calculated 297.6 MOS/KG (273-304); Potassium 3.3 MMOL/L (3.5-5.1); Total Protein 6.1 G/DL (6.4-8.2)
[2022-04-07] MEDS ORDERED: PIPERACILLIN/TAZOBACTAM 3,375 MG in SODIUM CHLORIDE 0.9% 100 ML IV STA (06:08)
[2022-04-07] MEDS ORDERED: ALBUTEROL/IPRATROPIUM 3 ML NEB RESP TX PRN ×2 (06:11→08:24)
[2022-04-07] MEDS ORDERED: ACETAMINOPHEN 325 MG TABLET PO PRN (06:11)
[2022-04-07] MEDS ORDERED: SODIUM CHLORIDE 0.9% 1,000 ML IV SCH (06:30)
[2022-04-07 06:52] LABS: Lymphocytes 4 % (20-55); Platelet Estimate Normal; Total Cells Counted 100
[2022-04-07] MEDS ORDERED: traMADol 50 MG TABLET PO PRN (08:24)
[2022-04-07] MEDS ORDERED: NON-FORMULARY MEDICATION (Acetaminophen 650 mg Tablet) PO PRN (08:24)
[2022-04-07] MEDS ORDERED: NITROGLYCERIN SL 0.4 MG TABLET SL PRN (08:24)
[2022-04-07] MEDS ORDERED: AMIODARONE 200 MG TABLET PO SCH (09:00)
[2022-04-07] MEDS ORDERED: DAPAGLIFLOZIN 10 MG TABLET PO SCH (09:00)
[2022-04-07] MEDS ORDERED: carvediloL 6.25 MG TABLET PO SCH (09:00)
[2022-04-07] MEDS ORDERED: LEVOTHYROXINE 75 MCG TABLET PO SCH (09:00)
[2022-04-07] MEDS ORDERED: SPIRONOLACTONE 25 MG TABLET PO SCH (09:00)
[2022-04-07] MEDS ORDERED: NON-FORMULARY MEDICATION (Methylprednisolone [Medrol (Pak)] 4 mg Tablets,Dose Pack) PO SCH (09:00)
[2022-04-07] MEDS ORDERED: FAMOTIDINE 20 MG TABLET PO SCH (09:00)
[2022-04-07] MEDS ORDERED: INSULIN GLARGINE 100 UNIT/ML SUBCUT SCH (09:00)
[2022-04-07] MEDS: ASPIRIN CHEW 81 MG TABLET PO SCH (09:45)
[2022-04-07] MEDS: AMIODARONE 200 MG TABLET PO SCH ×2 (09:46→21:55)
[2022-04-07] MEDS: SPIRONOLACTONE 25 MG TABLET PO SCH (09:46)
[2022-04-07] MEDS: DAPAGLIFLOZIN 10 MG TABLET PO SCH (09:46)
[2022-04-07] MEDS: LEVOTHYROXINE 75 MCG TABLET PO SCH (09:46)
[2022-04-07] MEDS: OLMESARTAN 20 MG TABLET PO SCH (09:46)
[2022-04-07] MEDS: ISOSORBIDE MONONITRATE 30 MG TABLET PO SCH (09:47)
[2022-04-07] MEDS: TICAGRELOR 90 MG TABLET PO SCH ×2 (09:47→21:55)
[2022-04-07] MEDS: PANTOPRAZOLE 40 MG VIAL IV SCH (09:47)
[2022-04-07] MEDS: LORATADINE 10 MG TABLET PO SCH (09:47)
[2022-04-07] MEDS: INSULIN GLARGINE 100 UNIT/ML SUBCUT SCH (09:48)
[2022-04-07] MEDS ORDERED: ENOXAPARIN 80 MG/0.8 ML SYRINGE SUBCUT SCH (10:00)
[2022-04-07] MEDS: GLIMEPIRIDE 2 MG TABLET PO SCH ×2 (10:56→16:35)
[2022-04-07] MEDS: carvediloL 6.25 MG TABLET PO SCH ×2 (10:56→16:35)
[2022-04-07] MEDS: SODIUM CHLORIDE 0.45% 1,000 ML IV SCH (10:56)
[2022-04-07] MEDS: BENZONATATE 100 MG CAPSULE PO SCH ×2 (10:56→23:34)
[2022-04-07] MEDS: MAGNESIUM OXIDE 400 MG TABLET PO SCH ×2 (11:21→21:55)
[2022-04-07] MEDS ORDERED: FUROSEMIDE 40 MG/4 ML VIAL IV ONE (11:35)
[2022-04-07] MEDS: methylPREDNISolone SOD SUC 40 MG/1 ML VIAL IV SCH ×2 (14:15→21:57)
[2022-04-07] MEDS: PIPERACILLIN/TAZOBACTAM 3,375 MG in SODIUM CHLORIDE 0.9% 100 ML IV SCH ×2 (14:20→21:55)
[2022-04-07] MEDS ORDERED: GLIMEPIRIDE 2 MG TABLET PO SCH (16:30)
[2022-04-07] MEDS: POTASSIUM CHLORIDE 20 MEQ TABLET PO PRN ×2 (16:35→18:40)
[2022-04-07] MEDS: INSULIN LISPRO 100 UNIT/ML SUBCUT SCH ×2 (17:18→21:55)
[2022-04-07] MEDS ORDERED: ASPIRIN EC 81 MG TABLET PO SCH (21:00)
[2022-04-07] MEDS ORDERED: GABAPENTIN 100 MG CAPSULE PO PRN (21:00)
[2022-04-07] MEDS ORDERED: ROSUVASTATIN 20 MG TABLET PO SCH (21:00)
[2022-04-07] MEDS: ROSUVASTATIN 20 MG TABLET PO SCH (21:55)
[2022-04-08 05:25] LABS: Calcium 8.4 MG/DL (8.5-10.1); Osmolality,Calculated 297.7 MOS/KG (273-304); Potassium 3.6 MMOL/L (3.5-5.1)
[2022-04-08] MEDS: LEVOTHYROXINE 75 MCG TABLET PO SCH (06:08)
[2022-04-08] MEDS: methylPREDNISolone SOD SUC 40 MG/1 ML VIAL IV SCH ×3 (06:08→22:22)
[2022-04-08] MEDS: PIPERACILLIN/TAZOBACTAM 3,375 MG in SODIUM CHLORIDE 0.9% 100 ML IV SCH ×3 (06:11→22:27)
[2022-04-08] MEDS: BUDESONIDE 0.5 MG/2 ML NEB RESP TX SCH ×3 (07:22→19:55)
[2022-04-08] MEDS: ARFORMOTEROL 15 MCG/2 ML NEB RESP TX SCH ×3 (07:22→19:55)
[2022-04-08] MEDS: INSULIN GLARGINE 100 UNIT/ML SUBCUT SCH (09:03)
[2022-04-08] MEDS: INSULIN LISPRO 100 UNIT/ML SUBCUT SCH ×4 (09:03→22:24)
[2022-04-08] MEDS: ENOXAPARIN 40 MG/0.4 ML SYRINGE SUBCUT SCH (09:04)
[2022-04-08] MEDS: PANTOPRAZOLE 40 MG VIAL IV SCH (09:04)
[2022-04-08] MEDS: DAPAGLIFLOZIN 10 MG TABLET PO SCH (09:04)
[2022-04-08] MEDS: OLMESARTAN 20 MG TABLET PO SCH (09:05)
[2022-04-08] MEDS: BENZONATATE 100 MG CAPSULE PO SCH ×2 (09:05→22:23)
[2022-04-08] MEDS: GLIMEPIRIDE 2 MG TABLET PO SCH ×2 (09:05→17:22)
[2022-04-08] MEDS: MAGNESIUM OXIDE 400 MG TABLET PO SCH ×2 (09:05→22:23)
[2022-04-08] MEDS: AMIODARONE 200 MG TABLET PO SCH ×2 (09:05→22:23)
[2022-04-08] MEDS: TICAGRELOR 90 MG TABLET PO SCH ×2 (09:05→22:23)
[2022-04-08] MEDS: SPIRONOLACTONE 25 MG TABLET PO SCH (09:05)
[2022-04-08] MEDS: carvediloL 6.25 MG TABLET PO SCH ×2 (09:06→17:22)
[2022-04-08] MEDS: ASPIRIN CHEW 81 MG TABLET PO SCH (09:06)
[2022-04-08] MEDS: LORATADINE 10 MG TABLET PO SCH (09:06)
[2022-04-08] MEDS: ISOSORBIDE MONONITRATE 30 MG TABLET PO SCH (09:06)
[2022-04-08] MEDS: DESITIN 4OZ/NYSTATIN 15 GRAM MIXTURE PASTE TOP SCH ×2 (12:57→22:50)
[2022-04-08] MEDS: SODIUM CHLORIDE 0.45% 1,000 ML IV SCH (17:24)
[2022-04-08] MEDS: ROSUVASTATIN 20 MG TABLET PO SCH (22:22)
[2022-04-09] MEDS: ALBUTEROL/IPRATROPIUM 3 ML NEB RESP TX SCH ×6 (00:49→19:54)
[2022-04-09 05:02] LABS: Basophils % 0.1 % (0.0-0.8); Hematocrit 34.6 VOL% (42.0-52.0); Hemoglobin 10.7 GM/DL (14.0-18.0); Immature Granulocytes Absolute 0.21 #; Lymphocytes # 0.3 10*3/uL (1.4-4.0); Lymphocytes % 1.2 % (21.2-54.2); Mean Corpuscular HGB Conc 30.9 GM/DL (32-36); Mean Corpuscular Volume 85.6 FL (87-102); Mean Platelet Volume 11.4 FL (9.6-12.0); Monocytes # 0.5 10*3/uL (0.11-0.8); Monocytes % 2.5 % (1.7-12.7); Neutrophils % 95.2 % (38.7-73.9); Platelet Count 233 T/CUMM (130-400); Red Blood Count 4.04 MC/CUMM (3.8-5.5); Red Cell Distribution Width 15.7 % (9.3-17.3); White Blood Count 21.4 T/CUMM (4-12)
[2022-04-09 05:22] LABS: Calcium 8.7 MG/DL (8.5-10.1); Hypochromia Slight; Lymphocytes 1 % (20-55); Microcytosis Slight; Osmolality,Calculated 300.8 MOS/KG (273-304); Platelet Estimate Adequate; Potassium 3.7 MMOL/L (3.5-5.1); Total Cells Counted 100
[2022-04-09] MEDS: PIPERACILLIN/TAZOBACTAM 3,375 MG in SODIUM CHLORIDE 0.9% 100 ML IV SCH ×3 (05:51→21:50)
[2022-04-09] MEDS: methylPREDNISolone SOD SUC 40 MG/1 ML VIAL IV SCH ×3 (05:51→20:49)
[2022-04-09] MEDS: SODIUM CHLORIDE 0.45% 1,000 ML IV SCH (05:52)
[2022-04-09] MEDS: LEVOTHYROXINE 75 MCG TABLET PO SCH (05:52)
[2022-04-09] MEDS: ARFORMOTEROL 15 MCG/2 ML NEB RESP TX SCH ×2 (07:30→19:54)
[2022-04-09] MEDS: BUDESONIDE 0.5 MG/2 ML NEB RESP TX SCH ×2 (07:30→19:54)
[2022-04-09] MEDS: INSULIN LISPRO 100 UNIT/ML SUBCUT SCH ×4 (08:21→21:02)
[2022-04-09] MEDS: PANTOPRAZOLE 40 MG VIAL IV SCH (08:33)
[2022-04-09] MEDS: INSULIN GLARGINE 100 UNIT/ML SUBCUT SCH (08:34)
[2022-04-09] MEDS: ENOXAPARIN 40 MG/0.4 ML SYRINGE SUBCUT SCH (08:35)
[2022-04-09] MEDS: OLMESARTAN 20 MG TABLET PO SCH (08:35)
[2022-04-09] MEDS: ISOSORBIDE MONONITRATE 30 MG TABLET PO SCH (08:36)
[2022-04-09] MEDS: DAPAGLIFLOZIN 10 MG TABLET PO SCH (08:36)
[2022-04-09] MEDS: SPIRONOLACTONE 25 MG TABLET PO SCH (08:36)
[2022-04-09] MEDS: BENZONATATE 100 MG CAPSULE PO SCH ×2 (08:36→20:49)
[2022-04-09] MEDS: TICAGRELOR 90 MG TABLET PO SCH ×2 (08:36→20:49)
[2022-04-09] MEDS: LORATADINE 10 MG TABLET PO SCH (08:36)
[2022-04-09] MEDS: ASPIRIN CHEW 81 MG TABLET PO SCH (08:36)
[2022-04-09] MEDS: GLIMEPIRIDE 2 MG TABLET PO SCH ×2 (08:36→16:29)
[2022-04-09] MEDS: carvediloL 6.25 MG TABLET PO SCH (08:37)
[2022-04-09] MEDS: AMIODARONE 200 MG TABLET PO SCH (08:37)
[2022-04-09] MEDS: MAGNESIUM OXIDE 400 MG TABLET PO SCH ×2 (08:37→20:49)
[2022-04-09] MEDS: DESITIN 4OZ/NYSTATIN 15 GRAM MIXTURE PASTE TOP SCH ×2 (08:41→21:01)
[2022-04-09] MEDS: carvediloL 3.125 MG TABLET PO SCH (16:30)
[2022-04-09] MEDS ORDERED: carvediloL 3.125 MG TABLET PO SCH (17:00)
[2022-04-09] MEDS: ROSUVASTATIN 20 MG TABLET PO SCH (20:49)
[2022-04-09] MEDS ORDERED: AMIODARONE 200 MG TABLET PO SCH (21:00)
[2022-04-10] MEDS: ALBUTEROL/IPRATROPIUM 3 ML NEB RESP TX SCH ×7 (00:36→23:22)
[2022-04-10] MEDS: SODIUM CHLORIDE 0.45% 1,000 ML IV SCH ×2 (01:10→18:20)
[2022-04-10] MEDS: methylPREDNISolone SOD SUC 40 MG/1 ML VIAL IV SCH ×3 (05:32→21:26)
[2022-04-10] MEDS: LEVOTHYROXINE 75 MCG TABLET PO SCH (06:39)
[2022-04-10] MEDS: PIPERACILLIN/TAZOBACTAM 3,375 MG in SODIUM CHLORIDE 0.9% 100 ML IV SCH ×3 (06:39→21:36)
[2022-04-10] MEDS: BUDESONIDE 0.5 MG/2 ML NEB RESP TX SCH ×2 (06:58→19:21)
[2022-04-10] MEDS: ARFORMOTEROL 15 MCG/2 ML NEB RESP TX SCH ×2 (06:58→19:21)
[2022-04-10] MEDS ORDERED: AMIODARONE 200 MG TABLET PO SCH (09:00)
[2022-04-10] MEDS: BENZONATATE 100 MG CAPSULE PO SCH ×2 (10:06→21:26)
[2022-04-10] MEDS: ISOSORBIDE MONONITRATE 30 MG TABLET PO SCH (10:06)
[2022-04-10] MEDS: OLMESARTAN 20 MG TABLET PO SCH (10:06)
[2022-04-10] MEDS: TICAGRELOR 90 MG TABLET PO SCH ×2 (10:06→21:25)
[2022-04-10] MEDS: LORATADINE 10 MG TABLET PO SCH (10:06)
[2022-04-10] MEDS: carvediloL 3.125 MG TABLET PO SCH ×2 (10:07→17:04)
[2022-04-10] MEDS: DAPAGLIFLOZIN 10 MG TABLET PO SCH (10:07)
[2022-04-10] MEDS: ASPIRIN CHEW 81 MG TABLET PO SCH (10:07)
[2022-04-10] MEDS: SPIRONOLACTONE 25 MG TABLET PO SCH (10:08)
[2022-04-10] MEDS: PANTOPRAZOLE 40 MG VIAL IV SCH (10:08)
[2022-04-10] MEDS: GLIMEPIRIDE 2 MG TABLET PO SCH ×2 (10:08→17:04)
[2022-04-10] MEDS: ENOXAPARIN 40 MG/0.4 ML SYRINGE SUBCUT SCH (10:09)
[2022-04-10] MEDS: INSULIN GLARGINE 100 UNIT/ML SUBCUT SCH (10:09)
[2022-04-10] MEDS: MAGNESIUM OXIDE 400 MG TABLET PO SCH ×2 (10:09→21:25)
[2022-04-10] MEDS: INSULIN LISPRO 100 UNIT/ML SUBCUT SCH ×4 (10:10→21:28)
[2022-04-10] MEDS: DESITIN 4OZ/NYSTATIN 15 GRAM MIXTURE PASTE TOP SCH ×2 (10:10→21:37)
[2022-04-10] MEDS ORDERED: FUROSEMIDE 40 MG/4 ML VIAL IV ONE (14:00)
[2022-04-10] MEDS ORDERED: GLIMEPIRIDE 2 MG TABLET PO ONE (21:00)
[2022-04-10] MEDS: ROSUVASTATIN 20 MG TABLET PO SCH (21:25)
[2022-04-10] MEDS: KETOROLAC 15 MG/1 ML VIAL IV SCH (21:26)
[2022-04-11] MEDS: ALBUTEROL/IPRATROPIUM 3 ML NEB RESP TX SCH ×5 (02:54→19:51)
[2022-04-11 05:02] LABS: Basophils % 0.1 % (0.0-0.8); Hematocrit 34.7 VOL% (42.0-52.0); Hemoglobin 10.9 GM/DL (14.0-18.0); Immature Granulocytes % 1.1 %; Lymphocytes # 0.3 10*3/uL (1.4-4.0); Lymphocytes % 1.5 % (21.2-54.2); Mean Corpuscular HGB Conc 31.4 GM/DL (32-36); Mean Corpuscular Volume 85.3 FL (87-102); Mean Platelet Volume 11.1 FL (9.6-12.0); Monocytes # 0.6 10*3/uL (0.11-0.8); Monocytes % 3.1 % (1.7-12.7); Neutrophils % 94.2 % (38.7-73.9); Platelet Count 216 T/CUMM (130-400); Red Blood Count 4.07 MC/CUMM (3.8-5.5); White Blood Count 17.8 T/CUMM (4-12)
[2022-04-11 05:21] LABS: Calcium 8.2 MG/DL (8.5-10.1); Potassium 3.9 MMOL/L (3.5-5.1)
[2022-04-11 05:22] LABS: Lymphocytes 1 % (20-55); Platelet Estimate Adequate; Total Cells Counted 100
[2022-04-11] MEDS: PIPERACILLIN/TAZOBACTAM 3,375 MG in SODIUM CHLORIDE 0.9% 100 ML IV SCH ×3 (05:33→21:30)
[2022-04-11] MEDS: KETOROLAC 15 MG/1 ML VIAL IV SCH ×3 (05:34→20:51)
[2022-04-11] MEDS: LEVOTHYROXINE 75 MCG TABLET PO SCH (05:34)
[2022-04-11] MEDS: methylPREDNISolone SOD SUC 40 MG/1 ML VIAL IV SCH ×3 (05:34→20:52)
[2022-04-11] MEDS: BUDESONIDE 0.5 MG/2 ML NEB RESP TX SCH ×2 (06:55→19:59)
[2022-04-11] MEDS: ARFORMOTEROL 15 MCG/2 ML NEB RESP TX SCH ×2 (06:55→19:59)
[2022-04-11] MEDS: SODIUM CHLORIDE 0.45% 1,000 ML IV SCH ×3 (07:19→17:09)
[2022-04-11] MEDS: INSULIN LISPRO 100 UNIT/ML SUBCUT SCH ×4 (07:54→20:52)
[2022-04-11] MEDS: ENOXAPARIN 40 MG/0.4 ML SYRINGE SUBCUT SCH (08:02)
[2022-04-11] MEDS: FUROSEMIDE 40 MG/4 ML VIAL IV SCH (08:02)
[2022-04-11] MEDS: carvediloL 3.125 MG TABLET PO SCH ×2 (08:03→16:25)
[2022-04-11] MEDS: OLMESARTAN 20 MG TABLET PO SCH (08:03)
[2022-04-11] MEDS: SPIRONOLACTONE 25 MG TABLET PO SCH (08:03)
[2022-04-11] MEDS: MAGNESIUM OXIDE 400 MG TABLET PO SCH ×2 (08:03→20:51)
[2022-04-11] MEDS: DAPAGLIFLOZIN 10 MG TABLET PO SCH (08:03)
[2022-04-11] MEDS: BENZONATATE 100 MG CAPSULE PO SCH ×2 (08:03→20:50)
[2022-04-11] MEDS: LORATADINE 10 MG TABLET PO SCH (08:03)
[2022-04-11] MEDS: TICAGRELOR 90 MG TABLET PO SCH ×2 (08:04→20:50)
[2022-04-11] MEDS: ISOSORBIDE MONONITRATE 30 MG TABLET PO SCH (08:04)
[2022-04-11] MEDS: GLIMEPIRIDE 4 MG TABLET PO SCH ×2 (08:04→16:25)
[2022-04-11] MEDS: PANTOPRAZOLE 40 MG VIAL IV SCH (08:04)
[2022-04-11] MEDS: ASPIRIN CHEW 81 MG TABLET PO SCH (08:04)
[2022-04-11] MEDS: INSULIN GLARGINE 100 UNIT/ML SUBCUT SCH (08:05)
[2022-04-11] MEDS: DESITIN 4OZ/NYSTATIN 15 GRAM MIXTURE PASTE TOP SCH ×2 (08:05→20:56)
[2022-04-11] MEDS ORDERED: ROPIVACAINE 0.5% 30 ML VIAL MISC INJ ONE (09:32)
[2022-04-11] MEDS ORDERED: TRIAMCINOLONE ACETONIDE 40 MG/1 ML VIAL MISC INJ ONE (09:32)
[2022-04-11] MEDS: ROSUVASTATIN 20 MG TABLET PO SCH (20:51)
[2022-04-12] MEDS: ALBUTEROL/IPRATROPIUM 3 ML NEB RESP TX SCH ×6 (00:12→19:37)
[2022-04-12] MEDS: KETOROLAC 15 MG/1 ML VIAL IV SCH ×3 (05:06→21:17)
[2022-04-12] MEDS: methylPREDNISolone SOD SUC 40 MG/1 ML VIAL IV SCH ×3 (05:06→21:13)
[2022-04-12 05:24] LABS: Calcium 8.3 MG/DL (8.5-10.1); Osmolality,Calculated 301.8 MOS/KG (273-304); Potassium 4.4 MMOL/L (3.5-5.1)
[2022-04-12] MEDS: LEVOTHYROXINE 75 MCG TABLET PO SCH (06:40)
[2022-04-12] MEDS: PIPERACILLIN/TAZOBACTAM 3,375 MG in SODIUM CHLORIDE 0.9% 100 ML IV SCH ×3 (06:40→23:49)
[2022-04-12] MEDS: BUDESONIDE 0.5 MG/2 ML NEB RESP TX SCH ×2 (07:42→19:46)
[2022-04-12] MEDS: ARFORMOTEROL 15 MCG/2 ML NEB RESP TX SCH ×2 (07:42→19:46)
[2022-04-12 08:12] LABS: Basophils % 0.1 % (0.0-0.8); Hematocrit 33.9 VOL% (42.0-52.0); Hemoglobin 10.4 GM/DL (14.0-18.0); Immature Granulocytes Absolute 0.17 #; Lymphocytes # 0.2 10*3/uL (1.4-4.0); Lymphocytes % 1.1 % (21.2-54.2); Mean Corpuscular HGB Conc 30.7 GM/DL (32-36); Mean Corpuscular Volume 84.8 FL (87-102); Mean Platelet Volume 10.4 FL (9.6-12.0); Monocytes # 0.5 10*3/uL (0.11-0.8); Neutrophils % 94.8 % (38.7-73.9); Platelet Count 206 T/CUMM (130-400); Red Cell Distribution Width 15.9 % (9.3-17.3); White Blood Count 17.8 T/CUMM (4-12)
[2022-04-12 09:02] LABS: Lymphocytes 1 % (20-55); Platelet Estimate Adequate; Total Cells Counted 100
[2022-04-12] MEDS: TICAGRELOR 90 MG TABLET PO SCH ×2 (09:26→21:06)
[2022-04-12] MEDS: BENZONATATE 100 MG CAPSULE PO SCH ×2 (09:26→21:06)
[2022-04-12] MEDS: GLIMEPIRIDE 4 MG TABLET PO SCH ×2 (09:26→17:41)
[2022-04-12] MEDS: OLMESARTAN 20 MG TABLET PO SCH (09:26)
[2022-04-12] MEDS: MAGNESIUM OXIDE 400 MG TABLET PO SCH ×2 (09:26→21:08)
[2022-04-12] MEDS: SERTRALINE 50 MG TABLET PO SCH (09:26)
[2022-04-12] MEDS: SPIRONOLACTONE 25 MG TABLET PO SCH (09:26)
[2022-04-12] MEDS: ISOSORBIDE MONONITRATE 30 MG TABLET PO SCH (09:26)
[2022-04-12] MEDS: ASPIRIN CHEW 81 MG TABLET PO SCH (09:26)
[2022-04-12] MEDS: LORATADINE 10 MG TABLET PO SCH (09:27)
[2022-04-12] MEDS: carvediloL 3.125 MG TABLET PO SCH ×2 (09:27→17:41)
[2022-04-12] MEDS: PANTOPRAZOLE 40 MG VIAL IV SCH (09:27)
[2022-04-12] MEDS: DAPAGLIFLOZIN 10 MG TABLET PO SCH (09:27)
[2022-04-12] MEDS: INSULIN GLARGINE 100 UNIT/ML SUBCUT SCH (09:28)
[2022-04-12] MEDS: INSULIN LISPRO 100 UNIT/ML SUBCUT SCH ×4 (09:29→21:08)
[2022-04-12] MEDS: ENOXAPARIN 40 MG/0.4 ML SYRINGE SUBCUT SCH (09:29)
[2022-04-12] MEDS: FUROSEMIDE 40 MG/4 ML VIAL IV SCH (09:29)
[2022-04-12] MEDS: SODIUM CHLORIDE 0.45% 1,000 ML IV SCH ×2 (10:25→16:19)
[2022-04-12] MEDS: DESITIN 4OZ/NYSTATIN 15 GRAM MIXTURE PASTE TOP SCH ×2 (10:32→21:09)
[2022-04-12] MEDS: ROSUVASTATIN 20 MG TABLET PO SCH (21:12)
[2022-04-13] MEDS: ALBUTEROL/IPRATROPIUM 3 ML NEB RESP TX SCH ×6 (00:29→21:26)
[2022-04-13] MEDS: methylPREDNISolone SOD SUC 40 MG/1 ML VIAL IV SCH ×3 (05:09→20:17)
[2022-04-13] MEDS: KETOROLAC 15 MG/1 ML VIAL IV SCH ×3 (05:11→20:18)
[2022-04-13] MEDS: PIPERACILLIN/TAZOBACTAM 3,375 MG in SODIUM CHLORIDE 0.9% 100 ML IV SCH ×3 (05:34→22:29)
[2022-04-13 05:51] LABS: Basophils % 0.1 % (0.0-0.8); Hematocrit 32.1 VOL% (42.0-52.0); Hemoglobin 9.9 GM/DL (14.0-18.0); Immature Granulocytes % 1.2 %; Immature Granulocytes Absolute 0.18 #; Lymphocytes # 0.2 10*3/uL (1.4-4.0); Lymphocytes % 1.1 % (21.2-54.2); Mean Corpuscular HGB Conc 30.8 GM/DL (32-36); Mean Corpuscular Volume 84.7 FL (87-102); Mean Platelet Volume 11.6 FL (9.6-12.0); Monocytes # 0.5 10*3/uL (0.11-0.8); Monocytes % 3.2 % (1.7-12.7); Neutrophils % 94.4 % (38.7-73.9); Platelet Count 198 T/CUMM (130-400); Red Blood Count 3.79 MC/CUMM (3.8-5.5); Red Cell Distribution Width 16.4 % (9.3-17.3); White Blood Count 15.7 T/CUMM (4-12)
[2022-04-13 06:10] LABS: Hypochromia 1+; Lymphocytes 1 % (20-55); Microcytosis 1+; Platelet Estimate Adequate; Total Cells Counted 100
[2022-04-13 06:29] LABS: Calcium 8.4 MG/DL (8.5-10.1); Osmolality,Calculated 302.8 MOS/KG (273-304)
[2022-04-13] MEDS: LEVOTHYROXINE 75 MCG TABLET PO SCH (07:47)
[2022-04-13] MEDS: INSULIN LISPRO 100 UNIT/ML SUBCUT SCH ×4 (08:09→22:17)
[2022-04-13] MEDS: BUDESONIDE 0.5 MG/2 ML NEB RESP TX SCH ×2 (08:21→21:27)
[2022-04-13] MEDS: ARFORMOTEROL 15 MCG/2 ML NEB RESP TX SCH ×2 (08:21→21:26)
[2022-04-13] MEDS: carvediloL 3.125 MG TABLET PO SCH ×2 (09:33→17:05)
[2022-04-13] MEDS: BENZONATATE 100 MG CAPSULE PO SCH ×2 (09:33→20:18)
[2022-04-13] MEDS: ASPIRIN CHEW 81 MG TABLET PO SCH (09:33)
[2022-04-13] MEDS: OLMESARTAN 20 MG TABLET PO SCH (09:33)
[2022-04-13] MEDS: SPIRONOLACTONE 25 MG TABLET PO SCH (09:33)
[2022-04-13] MEDS: LORATADINE 10 MG TABLET PO SCH (09:33)
[2022-04-13] MEDS: DAPAGLIFLOZIN 10 MG TABLET PO SCH (09:33)
[2022-04-13] MEDS: MAGNESIUM OXIDE 400 MG TABLET PO SCH ×2 (09:33→20:19)
[2022-04-13] MEDS: PANTOPRAZOLE 40 MG VIAL IV SCH (09:34)
[2022-04-13] MEDS: ISOSORBIDE MONONITRATE 30 MG TABLET PO SCH (09:34)
[2022-04-13] MEDS: FUROSEMIDE 40 MG/4 ML VIAL IV SCH (09:34)
[2022-04-13] MEDS: SERTRALINE 50 MG TABLET PO SCH (09:34)
[2022-04-13] MEDS: INSULIN GLARGINE 100 UNIT/ML SUBCUT SCH (09:34)
[2022-04-13] MEDS: ENOXAPARIN 40 MG/0.4 ML SYRINGE SUBCUT SCH (09:34)
[2022-04-13] MEDS: TICAGRELOR 90 MG TABLET PO SCH ×2 (09:34→20:19)
[2022-04-13] MEDS: DESITIN 4OZ/NYSTATIN 15 GRAM MIXTURE PASTE TOP SCH ×2 (09:36→20:19)
[2022-04-13] MEDS: GLIMEPIRIDE 4 MG TABLET PO SCH ×2 (09:38→17:04)
[2022-04-13] MEDS: ONDANSETRON 4 MG/2 ML VIAL IV PRN (12:26)
[2022-04-13] MEDS: SODIUM CHLORIDE 0.45% 1,000 ML IV SCH ×2 (18:40)
[2022-04-13] MEDS: ROSUVASTATIN 20 MG TABLET PO SCH (20:18)
[2022-04-14] MEDS: ALBUTEROL/IPRATROPIUM 3 ML NEB RESP TX SCH ×7 (00:09→23:23)
[2022-04-14] MEDS: LEVOTHYROXINE 75 MCG TABLET PO SCH (05:35)
[2022-04-14] MEDS: methylPREDNISolone SOD SUC 40 MG/1 ML VIAL IV SCH ×3 (05:35→20:28)
[2022-04-14] MEDS: KETOROLAC 15 MG/1 ML VIAL IV SCH ×3 (05:39→20:29)
[2022-04-14] MEDS: PIPERACILLIN/TAZOBACTAM 3,375 MG in SODIUM CHLORIDE 0.9% 100 ML IV SCH ×3 (06:15→22:30)
[2022-04-14] MEDS: BUDESONIDE 0.5 MG/2 ML NEB RESP TX SCH ×2 (07:20→19:29)
[2022-04-14] MEDS: ARFORMOTEROL 15 MCG/2 ML NEB RESP TX SCH ×2 (07:20→19:28)
[2022-04-14] MEDS: INSULIN LISPRO 100 UNIT/ML SUBCUT SCH ×4 (08:24→22:29)
[2022-04-14] MEDS: OLMESARTAN 20 MG TABLET PO SCH (08:54)
[2022-04-14] MEDS: SPIRONOLACTONE 25 MG TABLET PO SCH (08:55)
[2022-04-14] MEDS: ISOSORBIDE MONONITRATE 30 MG TABLET PO SCH (08:55)
[2022-04-14] MEDS: GLIMEPIRIDE 4 MG TABLET PO SCH ×2 (08:55→16:15)
[2022-04-14] MEDS: carvediloL 3.125 MG TABLET PO SCH ×2 (08:55→16:16)
[2022-04-14] MEDS: BENZONATATE 100 MG CAPSULE PO SCH ×2 (08:55→20:27)
[2022-04-14] MEDS: TICAGRELOR 90 MG TABLET PO SCH ×2 (08:55→20:27)
[2022-04-14] MEDS: SERTRALINE 50 MG TABLET PO SCH (08:55)
[2022-04-14] MEDS: DAPAGLIFLOZIN 10 MG TABLET PO SCH (08:55)
[2022-04-14] MEDS: MAGNESIUM OXIDE 400 MG TABLET PO SCH ×2 (08:55→20:27)
[2022-04-14] MEDS: LORATADINE 10 MG TABLET PO SCH (08:55)
[2022-04-14] MEDS: ASPIRIN CHEW 81 MG TABLET PO SCH (08:55)
[2022-04-14] MEDS: INSULIN GLARGINE 100 UNIT/ML SUBCUT SCH (09:03)
[2022-04-14] MEDS: ENOXAPARIN 40 MG/0.4 ML SYRINGE SUBCUT SCH (09:03)
[2022-04-14] MEDS: PANTOPRAZOLE 40 MG VIAL IV SCH (09:04)
[2022-04-14] MEDS: FUROSEMIDE 40 MG/4 ML VIAL IV SCH (09:30)
[2022-04-14] MEDS: DESITIN 4OZ/NYSTATIN 15 GRAM MIXTURE PASTE TOP SCH ×2 (09:30→22:29)
[2022-04-14] MEDS: SODIUM CHLORIDE 0.45% 1,000 ML IV SCH (09:30)
[2022-04-14] MEDS: ROSUVASTATIN 20 MG TABLET PO SCH (20:27)
[2022-04-15] MEDS: ALBUTEROL/IPRATROPIUM 3 ML NEB RESP TX SCH ×6 (04:06→23:50)
[2022-04-15] MEDS: methylPREDNISolone SOD SUC 40 MG/1 ML VIAL IV SCH ×3 (05:35→21:56)
[2022-04-15] MEDS: KETOROLAC 15 MG/1 ML VIAL IV SCH ×2 (05:38→14:48)
[2022-04-15 05:43] LABS: Basophils % 0.1 % (0.0-0.8); Hematocrit 31.4 VOL% (42.0-52.0); Hemoglobin 9.6 GM/DL (14.0-18.0); Immature Granulocytes % 1.1 %; Immature Granulocytes Absolute 0.15 #; Lymphocytes # 0.2 10*3/uL (1.4-4.0); Lymphocytes % 1.4 % (21.2-54.2); Mean Corpuscular HGB Conc 30.6 GM/DL (32-36); Mean Corpuscular Volume 86.5 FL (87-102); Mean Platelet Volume 11.5 FL (9.6-12.0); Monocytes # 0.5 10*3/uL (0.11-0.8); Monocytes % 3.4 % (1.7-12.7); Platelet Count 171 T/CUMM (130-400); Red Blood Count 3.63 MC/CUMM (3.8-5.5); Red Cell Distribution Width 16.9 % (9.3-17.3); White Blood Count 13.9 T/CUMM (4-12)
[2022-04-15] MEDS: SODIUM CHLORIDE 0.45% 1,000 ML IV SCH ×2 (05:43→23:51)
[2022-04-15 05:59] LABS: Calcium 8.6 MG/DL (8.5-10.1); Osmolality,Calculated 301.1 MOS/KG (273-304); Potassium 4.4 MMOL/L (3.5-5.1)
[2022-04-15] MEDS: LEVOTHYROXINE 75 MCG TABLET PO SCH (06:00)
[2022-04-15 06:06] LABS: Lymphocytes 1 % (20-55); Platelet Estimate Adequate; Total Cells Counted 100
[2022-04-15 06:07] LABS: Hypochromia Slight; Microcytosis Slight
[2022-04-15] MEDS: BUDESONIDE 0.5 MG/2 ML NEB RESP TX SCH ×2 (07:11→19:45)
[2022-04-15] MEDS: ARFORMOTEROL 15 MCG/2 ML NEB RESP TX SCH ×2 (07:11→19:45)
[2022-04-15] MEDS: GLIMEPIRIDE 4 MG TABLET PO SCH ×2 (09:29→16:49)
[2022-04-15] MEDS: MAGNESIUM OXIDE 400 MG TABLET PO SCH ×2 (09:29→21:56)
[2022-04-15] MEDS: BENZONATATE 100 MG CAPSULE PO SCH ×2 (09:29→21:56)
[2022-04-15] MEDS: OLMESARTAN 20 MG TABLET PO SCH (09:29)
[2022-04-15] MEDS: ISOSORBIDE MONONITRATE 30 MG TABLET PO SCH (09:29)
[2022-04-15] MEDS: ASPIRIN CHEW 81 MG TABLET PO SCH (09:29)
[2022-04-15] MEDS: DAPAGLIFLOZIN 10 MG TABLET PO SCH (09:29)
[2022-04-15] MEDS: LORATADINE 10 MG TABLET PO SCH (09:30)
[2022-04-15] MEDS: SPIRONOLACTONE 25 MG TABLET PO SCH (09:30)
[2022-04-15] MEDS: SERTRALINE 50 MG TABLET PO SCH (09:30)
[2022-04-15] MEDS: carvediloL 3.125 MG TABLET PO SCH ×2 (09:30→16:49)
[2022-04-15] MEDS: TICAGRELOR 90 MG TABLET PO SCH ×2 (09:30→21:56)
[2022-04-15] MEDS: INSULIN LISPRO 100 UNIT/ML SUBCUT SCH ×4 (09:31→22:28)
[2022-04-15] MEDS: INSULIN GLARGINE 100 UNIT/ML SUBCUT SCH (09:31)
[2022-04-15] MEDS: FUROSEMIDE 40 MG/4 ML VIAL IV SCH (09:31)
[2022-04-15] MEDS: PANTOPRAZOLE 40 MG VIAL IV SCH (09:31)
[2022-04-15] MEDS: ENOXAPARIN 40 MG/0.4 ML SYRINGE SUBCUT SCH (09:33)
[2022-04-15] MEDS: DESITIN 4OZ/NYSTATIN 15 GRAM MIXTURE PASTE TOP SCH ×2 (09:38→21:56)
[2022-04-15] MEDS: ONDANSETRON 4 MG/2 ML VIAL IV PRN (10:38)
[2022-04-15] MEDS: ROSUVASTATIN 20 MG TABLET PO SCH (21:56)
[2022-04-16] MEDS: SODIUM CHLORIDE 0.45% 1,000 ML IV SCH ×2 (01:44→17:42)
[2022-04-16] MEDS: ALBUTEROL/IPRATROPIUM 3 ML NEB RESP TX SCH ×6 (03:40→23:56)
[2022-04-16] MEDS: methylPREDNISolone SOD SUC 40 MG/1 ML VIAL IV SCH ×3 (04:44→22:17)
[2022-04-16 05:24] LABS: Hematocrit 31.5 VOL% (42.0-52.0); Hemoglobin 9.5 GM/DL (14.0-18.0); Immature Granulocytes % 0.8 %; Immature Granulocytes Absolute 0.09 #; Lymphocytes # 0.2 10*3/uL (1.4-4.0); Lymphocytes % 1.6 % (21.2-54.2); Mean Corpuscular HGB Conc 30.2 GM/DL (32-36); Mean Corpuscular Volume 86.8 FL (87-102); Mean Platelet Volume 11.6 FL (9.6-12.0); Monocytes # 0.3 10*3/uL (0.11-0.8); Monocytes % 2.5 % (1.7-12.7); Neutrophils % 95.1 % (38.7-73.9); Platelet Count 153 T/CUMM (130-400); Red Blood Count 3.63 MC/CUMM (3.8-5.5); Red Cell Distribution Width 16.7 % (9.3-17.3); White Blood Count 11.9 T/CUMM (4-12)
[2022-04-16 05:53] LABS: Potassium 4.6 MMOL/L (3.5-5.1)
[2022-04-16 05:57] LABS: Band Neutrophils 3 % (0-10); Lymphocytes 4 % (20-55); Macrocytosis Slight; Platelet Estimate Normal; Total Cells Counted 100
[2022-04-16] MEDS: LEVOTHYROXINE 75 MCG TABLET PO SCH (05:58)
[2022-04-16] MEDS: BUDESONIDE 0.5 MG/2 ML NEB RESP TX SCH ×2 (07:05→19:15)
[2022-04-16] MEDS: ARFORMOTEROL 15 MCG/2 ML NEB RESP TX SCH ×2 (07:05→19:15)
[2022-04-16] MEDS ORDERED: TUBERCULIN SKIN TEST 0.1 ML SYRINGE INTRADERM ONE (10:00)
[2022-04-16] MEDS: INSULIN LISPRO 100 UNIT/ML SUBCUT SCH ×4 (10:51→22:17)
[2022-04-16] MEDS: GLIMEPIRIDE 4 MG TABLET PO SCH ×2 (10:54→16:47)
[2022-04-16] MEDS: SPIRONOLACTONE 25 MG TABLET PO SCH (10:55)
[2022-04-16] MEDS: carvediloL 3.125 MG TABLET PO SCH ×2 (10:55→16:47)
[2022-04-16] MEDS: ASPIRIN CHEW 81 MG TABLET PO SCH (10:55)
[2022-04-16] MEDS: OLMESARTAN 20 MG TABLET PO SCH (10:57)
[2022-04-16] MEDS: LORATADINE 10 MG TABLET PO SCH (10:57)
[2022-04-16] MEDS: TICAGRELOR 90 MG TABLET PO SCH ×2 (10:57→22:16)
[2022-04-16] MEDS: DAPAGLIFLOZIN 10 MG TABLET PO SCH (10:57)
[2022-04-16] MEDS: PANTOPRAZOLE 40 MG VIAL IV SCH (10:58)
[2022-04-16] MEDS: ISOSORBIDE MONONITRATE 30 MG TABLET PO SCH (10:58)
[2022-04-16] MEDS: MAGNESIUM OXIDE 400 MG TABLET PO SCH (10:58)
[2022-04-16] MEDS: FUROSEMIDE 40 MG/4 ML VIAL IV SCH (10:58)
[2022-04-16] MEDS: ENOXAPARIN 40 MG/0.4 ML SYRINGE SUBCUT SCH (10:58)
[2022-04-16] MEDS: INSULIN GLARGINE 100 UNIT/ML SUBCUT SCH (10:58)
[2022-04-16] MEDS: BENZONATATE 100 MG CAPSULE PO SCH ×2 (10:59→22:16)
[2022-04-16] MEDS: SERTRALINE 50 MG TABLET PO SCH (10:59)
[2022-04-16] MEDS: DESITIN 4OZ/NYSTATIN 15 GRAM MIXTURE PASTE TOP SCH ×2 (10:59→22:17)
[2022-04-16] MEDS: ROSUVASTATIN 20 MG TABLET PO SCH (22:15)
[2022-04-17] MEDS: ALBUTEROL/IPRATROPIUM 3 ML NEB RESP TX SCH ×3 (03:35→11:20)
[2022-04-17] MEDS: methylPREDNISolone SOD SUC 40 MG/1 ML VIAL IV SCH (04:29)
[2022-04-17] MEDS: LEVOTHYROXINE 75 MCG TABLET PO SCH (05:44)
[2022-04-17] MEDS: BUDESONIDE 0.5 MG/2 ML NEB RESP TX SCH (07:20)
[2022-04-17] MEDS: ARFORMOTEROL 15 MCG/2 ML NEB RESP TX SCH (07:20)
[2022-04-17] MEDS: ISOSORBIDE MONONITRATE 30 MG TABLET PO SCH (08:55)
[2022-04-17] MEDS: DAPAGLIFLOZIN 10 MG TABLET PO SCH (08:55)
[2022-04-17] MEDS: ASPIRIN CHEW 81 MG TABLET PO SCH (08:55)
[2022-04-17] MEDS: OLMESARTAN 20 MG TABLET PO SCH (08:55)
[2022-04-17] MEDS: GLIMEPIRIDE 4 MG TABLET PO SCH (08:56)
[2022-04-17] MEDS: carvediloL 3.125 MG TABLET PO SCH (08:56)
[2022-04-17] MEDS: TICAGRELOR 90 MG TABLET PO SCH (08:56)
[2022-04-17] MEDS: SERTRALINE 50 MG TABLET PO SCH (08:56)
[2022-04-17] MEDS: BENZONATATE 100 MG CAPSULE PO SCH (08:56)
[2022-04-17] MEDS: LORATADINE 10 MG TABLET PO SCH (08:56)
[2022-04-17] MEDS: INSULIN GLARGINE 100 UNIT/ML SUBCUT SCH (08:57)
[2022-04-17] MEDS: FUROSEMIDE 40 MG/4 ML VIAL IV SCH (08:57)
[2022-04-17] MEDS: PANTOPRAZOLE 40 MG VIAL IV SCH (08:57)
[2022-04-17] MEDS: INSULIN LISPRO 100 UNIT/ML SUBCUT SCH (08:57)
[2022-04-17] MEDS: SPIRONOLACTONE 25 MG TABLET PO SCH (08:58)
[2022-04-17] MEDS: ENOXAPARIN 40 MG/0.4 ML SYRINGE SUBCUT SCH (08:58)
[2022-04-17] MEDS: DESITIN 4OZ/NYSTATIN 15 GRAM MIXTURE PASTE TOP SCH (09:05)
[2022-04-17 11:37] VITALS: BP 144/63
== END 2022-04-17 11:15 | DRG 205 ==
LOC: EDUNIT# → EDBD → N.ED 03:50 → N.EDINP 06:09 → N.TELEN 07:22
PROVIDERS: ADMIT Internal Medicine; ATTEND Internal Medicine

== ENCOUNTER 2022-08-06 12:56 | Inpatient (IN) ==
[2022-08-06] MEDS ORDERED: ENOXAPARIN 100 MG/ML SYRINGE SUBCUT STA (13:56)
[2022-08-06] MEDS ORDERED: ASPIRIN 325 MG TABLET PO STA (13:56)
[2022-08-06] MEDS ORDERED: FUROSEMIDE 20 MG/2 ML VIAL IV STA (13:56)
[2022-08-06] MEDS ORDERED: FUROSEMIDE 40 MG/4 ML VIAL IV STA (13:58)
[2022-08-06 14:51] LABS: Basophils # 0.1 10*3/uL (0.0-0.2); Basophils % 0.8 % (0.0-0.8); Eosinophils # 0.1 10*3/uL (0.0-0.87); Hematocrit 37.7 VOL% (42.0-52.0); Hemoglobin 10.7 GM/DL (14.0-18.0); Immature Granulocytes % 2.4 %; Immature Granulocytes Absolute 0.31 #; Lymphocytes % 7.6 % (21.2-54.2); Mean Corpuscular HGB Conc 28.4 GM/DL (32-36); Mean Corpuscular Volume 85.1 FL (87-102); Mean Platelet Volume 10.9 FL (9.6-12.0); Monocytes # 1.1 10*3/uL (0.11-0.8); Monocytes % 8.5 % (1.7-12.7); Neutrophils % 79.7 % (38.7-73.9); Platelet Count 363 T/CUMM (130-400); Red Blood Count 4.43 MC/CUMM (3.8-5.5); Red Cell Distribution Width 19.2 % (9.3-17.3); White Blood Count 13.1 T/CUMM (4-12)
[2022-08-06 14:58] LABS: Albumin 3.3 G/DL (3.4-5.0); Bilirubin,Total 0.6 MG/DL (0.20-1.00); Calcium 9.3 MG/DL (8.5-10.1); Potassium 4.4 MMOL/L (3.5-5.1); Total Protein 7.1 G/DL (6.4-8.2)
[2022-08-06] MEDS ORDERED: cefTRIAXone 1,000 MG in SODIUM CHLORIDE 0.9% 100 ML IV STA (15:55)
[2022-08-06] MEDS ORDERED: ACETAMINOPHEN 325 MG TABLET PO PRN (15:55)
[2022-08-06] MEDS ORDERED: ONDANSETRON 4 MG/2 ML VIAL IV PRN (15:55)
[2022-08-06] MEDS ORDERED: NITROGLYCERIN SL 0.4 MG TABLET SL PRN (20:29)
[2022-08-06] MEDS ORDERED: GLIMEPIRIDE 4 MG TABLET PO SCH (21:00)
[2022-08-06] MEDS: methylPREDNISolone SOD SUC 40 MG/1 ML VIAL IV SCH (21:32)
[2022-08-06] MEDS: DOCUSATE SODIUM 100 MG CAPSULE PO SCH (21:33)
[2022-08-06] MEDS: carvediloL 6.25 MG TABLET PO SCH (21:39)
[2022-08-06] MEDS: ASPIRIN EC 81 MG TABLET PO SCH (21:39)
[2022-08-06] MEDS: FAMOTIDINE 20 MG TABLET PO SCH (21:39)
[2022-08-06] MEDS: AMIODARONE 200 MG TABLET PO SCH (21:39)
[2022-08-06] MEDS: TICAGRELOR 90 MG TABLET PO SCH (21:39)
[2022-08-06] MEDS: ROSUVASTATIN 20 MG TABLET PO SCH (21:39)
[2022-08-06] MEDS: traMADol 50 MG TABLET PO PRN (21:40)
[2022-08-06] MEDS: AZITHROMYCIN INJ 500 MG in SODIUM CHLORIDE 0.9% 250 ML IV SCH (21:41)
[2022-08-07] MEDS ORDERED: ALBUTEROL/IPRATROPIUM 3 ML NEB RESP TX SCH (01:00)
[2022-08-07] MEDS: IPRATROPIUM 500 MCG/2.5 ML NEB RESP TX SCH ×3 (01:10→15:22)
[2022-08-07] MEDS: methylPREDNISolone SOD SUC 40 MG/1 ML VIAL IV SCH ×3 (06:00→22:15)
[2022-08-07] MEDS: LEVOTHYROXINE 75 MCG TABLET PO SCH (06:00)
[2022-08-07 06:37] LABS: Calcium 8.9 MG/DL (8.5-10.1); Potassium 4.4 MMOL/L (3.5-5.1)
[2022-08-07 06:51] LABS: Basophils # 0.1 10*3/uL (0.0-0.2); Basophils % 0.5 % (0.0-0.8); Eosinophils % 0.1 % (0.00-10.9); Hematocrit 32.6 VOL% (42.0-52.0); Immature Granulocytes % 0.5 %; Immature Granulocytes Absolute 0.05 #; Lymphocytes # 0.4 10*3/uL (1.4-4.0); Mean Corpuscular HGB Conc 28.8 GM/DL (32-36); Mean Corpuscular Volume 83.2 FL (87-102); Monocytes # 0.1 10*3/uL (0.11-0.8); Monocytes % 0.9 % (1.7-12.7); Platelet Count 302 T/CUMM (130-400); Red Blood Count 3.92 MC/CUMM (3.8-5.5); White Blood Count 10.3 T/CUMM (4-12)
[2022-08-07 06:53] LABS: Hemoglobin 9.4 GM/DL (14.0-18.0)
[2022-08-07 07:01] LABS: Eosinophils 2 % (0-10); Hypochromia Slight; Lymphocytes 2 % (20-55); Microcytosis Slight; Platelet Estimate Adequate; Total Cells Counted 100
[2022-08-07] MEDS: cefTRIAXone 1,000 MG in SODIUM CHLORIDE 0.9% 100 ML IV SCH (08:54)
[2022-08-07] MEDS: TICAGRELOR 90 MG TABLET PO SCH ×2 (08:55→22:16)
[2022-08-07] MEDS: LORATADINE 10 MG TABLET PO SCH (08:55)
[2022-08-07] MEDS: DOCUSATE SODIUM 100 MG CAPSULE PO SCH ×2 (08:55→22:16)
[2022-08-07] MEDS: FUROSEMIDE 40 MG/4 ML VIAL IV SCH ×2 (08:55→17:50)
[2022-08-07] MEDS: carvediloL 6.25 MG TABLET PO SCH ×2 (08:56→22:16)
[2022-08-07] MEDS: FAMOTIDINE 20 MG TABLET PO SCH ×2 (08:56→22:16)
[2022-08-07] MEDS: PANTOPRAZOLE 40 MG TABLET PO SCH (08:56)
[2022-08-07] MEDS: DAPAGLIFLOZIN 10 MG TABLET PO SCH (08:56)
[2022-08-07] MEDS: AMIODARONE 200 MG TABLET PO SCH (08:56)
[2022-08-07] MEDS: ISOSORBIDE MONONITRATE 30 MG TABLET PO SCH (08:56)
[2022-08-07] MEDS: MONTELUKAST 10 MG TABLET PO SCH (08:57)
[2022-08-07] MEDS: SERTRALINE 50 MG TABLET PO SCH (08:57)
[2022-08-07] MEDS ORDERED: INSULIN GLARGINE 100 UNIT/ML SUBCUT SCH (09:00)
[2022-08-07] MEDS ORDERED: FUROSEMIDE 40 MG/4 ML VIAL IV SCH (09:00)
[2022-08-07] MEDS: KETOROLAC 15 MG/1 ML VIAL IV SCH ×2 (13:59→22:15)
[2022-08-07] MEDS: INSULIN REGULAR 100 UNIT/ML SUBCUT SCH ×2 (17:50→22:46)
[2022-08-07 21:15] LABS: RBC,Urine <1 /HPF (0-4); Urine Appearance Clear (Clear); Urine Color Yellow (Yellow)
[2022-08-07 21:16] LABS: Bilirubin,Urine Negative (Negative); Blood, Urine Negative (Negative); Glucose,Urine (UA) 500 mg/dL (Negative); Ketones,Urine Negative (Negative); Nitrite,Urine Negative (Negative); Protein,Urine Negative (Negative); Urine Urobilinogen 0.2 eU/dL (<2.0); Urine pH 5.5 (4.5-8.0)
[2022-08-07] MEDS: ROSUVASTATIN 20 MG TABLET PO SCH (22:16)
[2022-08-07] MEDS: ASPIRIN EC 81 MG TABLET PO SCH (22:16)
[2022-08-07] MEDS: AZITHROMYCIN INJ 500 MG in SODIUM CHLORIDE 0.9% 250 ML IV SCH (22:46)
[2022-08-07] MEDS: GLIMEPIRIDE 2 MG TABLET PO SCH (23:22)
[2022-08-08] MEDS: IPRATROPIUM 500 MCG/2.5 ML NEB RESP TX SCH ×4 (00:50→23:45)
[2022-08-08] MEDS: KETOROLAC 15 MG/1 ML VIAL IV SCH ×3 (05:53→21:43)
[2022-08-08] MEDS: methylPREDNISolone SOD SUC 40 MG/1 ML VIAL IV SCH ×3 (05:53→21:43)
[2022-08-08] MEDS: LEVOTHYROXINE 75 MCG TABLET PO SCH (05:53)
[2022-08-08 06:12] LABS: Basophils % 0.2 % (0.0-0.8); Hematocrit 29.5 VOL% (42.0-52.0); Hemoglobin 8.7 GM/DL (14.0-18.0); Immature Granulocytes % 0.6 %; Immature Granulocytes Absolute 0.08 #; Lymphocytes # 0.5 10*3/uL (1.4-4.0); Lymphocytes % 3.5 % (21.2-54.2); Mean Corpuscular HGB Conc 29.5 GM/DL (32-36); Mean Corpuscular Volume 81.7 FL (87-102); Monocytes # 0.4 10*3/uL (0.11-0.8); Monocytes % 3.1 % (1.7-12.7); Neutrophils % 92.6 % (38.7-73.9); Platelet Count 352 T/CUMM (130-400); Red Blood Count 3.61 MC/CUMM (3.8-5.5); Red Cell Distribution Width 19.3 % (9.3-17.3)
[2022-08-08 06:24] LABS: Osmolality,Calculated 296.1 MOS/KG (273-304)
[2022-08-08 06:37] LABS: Band Neutrophils 2 % (0-10); Lymphocytes 4 % (20-55); Total Cells Counted 100
[2022-08-08 06:38] LABS: Hypochromia Slight; Polychromasia Slight
[2022-08-08 06:39] LABS: Microcytosis 1+; Ovalocytes Slight; Platelet Estimate Normal
[2022-08-08] MEDS: SERTRALINE 50 MG TABLET PO SCH (08:56)
[2022-08-08] MEDS: carvediloL 6.25 MG TABLET PO SCH ×2 (08:56→21:42)
[2022-08-08] MEDS: GLIMEPIRIDE 2 MG TABLET PO SCH (08:56)
[2022-08-08] MEDS: DOCUSATE SODIUM 100 MG CAPSULE PO SCH ×2 (08:56→22:53)
[2022-08-08] MEDS: FAMOTIDINE 20 MG TABLET PO SCH ×2 (08:56→21:43)
[2022-08-08] MEDS: traMADol 50 MG TABLET PO PRN (08:57)
[2022-08-08] MEDS: MONTELUKAST 10 MG TABLET PO SCH (08:57)
[2022-08-08] MEDS: DAPAGLIFLOZIN 10 MG TABLET PO SCH (08:57)
[2022-08-08] MEDS: ISOSORBIDE MONONITRATE 30 MG TABLET PO SCH (08:57)
[2022-08-08] MEDS: PANTOPRAZOLE 40 MG TABLET PO SCH (08:57)
[2022-08-08] MEDS: LORATADINE 10 MG TABLET PO SCH (08:57)
[2022-08-08] MEDS: cefTRIAXone 1,000 MG in SODIUM CHLORIDE 0.9% 100 ML IV SCH (08:58)
[2022-08-08] MEDS: TICAGRELOR 90 MG TABLET PO SCH ×2 (08:58→21:42)
[2022-08-08] MEDS: INSULIN REGULAR 100 UNIT/ML SUBCUT SCH ×4 (09:05→21:45)
[2022-08-08] MEDS: INSULIN GLARGINE 100 UNIT/ML SUBCUT SCH (09:06)
[2022-08-08] MEDS ORDERED: GLIMEPIRIDE 2 MG TABLET PO ONE (11:07)
[2022-08-08] MEDS: ROSUVASTATIN 20 MG TABLET PO SCH (21:42)
[2022-08-08] MEDS: ASPIRIN EC 81 MG TABLET PO SCH (21:42)
[2022-08-08] MEDS: GLIMEPIRIDE 4 MG TABLET PO SCH (21:43)
[2022-08-08] MEDS: hydrALAZINE 25 MG TABLET PO SCH (21:43)
[2022-08-08] MEDS: AZITHROMYCIN INJ 500 MG in SODIUM CHLORIDE 0.9% 250 ML IV SCH (21:44)
[2022-08-09 05:19] LABS: Hematocrit 28.7 VOL% (42.0-52.0); Hemoglobin 8.4 GM/DL (14.0-18.0); Immature Granulocytes % 0.7 %; Immature Granulocytes Absolute 0.11 #; Lymphocytes # 0.3 10*3/uL (1.4-4.0); Lymphocytes % 2.1 % (21.2-54.2); Mean Corpuscular HGB Conc 29.3 GM/DL (32-36); Mean Corpuscular Volume 82.7 FL (87-102); Mean Platelet Volume 10.1 FL (9.6-12.0); Monocytes # 0.6 10*3/uL (0.11-0.8); Neutrophils % 93.2 % (38.7-73.9); Platelet Count 367 T/CUMM (130-400); Red Blood Count 3.47 MC/CUMM (3.8-5.5); Red Cell Distribution Width 19.4 % (9.3-17.3)
[2022-08-09 05:41] LABS: Osmolality,Calculated 298.1 MOS/KG (273-304)
[2022-08-09 05:59] LABS: Anisocytosis 1+; Hypochromia Slight; Lymphocytes 1 % (20-55); Microcytosis 1+; Total Cells Counted 100
[2022-08-09 06:00] LABS: Ovalocytes Slight; Platelet Estimate Normal; Polychromasia Slight
[2022-08-09] MEDS: IPRATROPIUM 500 MCG/2.5 ML NEB RESP TX SCH ×3 (06:45→22:05)
[2022-08-09] MEDS: methylPREDNISolone SOD SUC 40 MG/1 ML VIAL IV SCH ×3 (06:58→21:24)
[2022-08-09] MEDS: LEVOTHYROXINE 75 MCG TABLET PO SCH (06:59)
[2022-08-09] MEDS: KETOROLAC 15 MG/1 ML VIAL IV SCH ×2 (06:59→21:24)
[2022-08-09] MEDS: INSULIN REGULAR 100 UNIT/ML SUBCUT SCH ×3 (09:47→17:37)
[2022-08-09] MEDS: ISOSORBIDE MONONITRATE 30 MG TABLET PO SCH (09:47)
[2022-08-09] MEDS: FAMOTIDINE 20 MG TABLET PO SCH ×2 (09:47→21:27)
[2022-08-09] MEDS: LORATADINE 10 MG TABLET PO SCH (09:47)
[2022-08-09] MEDS: TICAGRELOR 90 MG TABLET PO SCH ×2 (09:47→21:26)
[2022-08-09] MEDS: INSULIN GLARGINE 100 UNIT/ML SUBCUT SCH (09:47)
[2022-08-09] MEDS: carvediloL 6.25 MG TABLET PO SCH ×2 (09:47→21:26)
[2022-08-09] MEDS: MONTELUKAST 10 MG TABLET PO SCH (09:47)
[2022-08-09] MEDS: DAPAGLIFLOZIN 10 MG TABLET PO SCH (09:47)
[2022-08-09] MEDS: hydrALAZINE 25 MG TABLET PO SCH ×2 (09:47→21:29)
[2022-08-09] MEDS: GLIMEPIRIDE 4 MG TABLET PO SCH ×2 (09:47→21:26)
[2022-08-09] MEDS: SERTRALINE 50 MG TABLET PO SCH (09:47)
[2022-08-09] MEDS: PANTOPRAZOLE 40 MG TABLET PO SCH (09:47)
[2022-08-09] MEDS: cefTRIAXone 1,000 MG in SODIUM CHLORIDE 0.9% 100 ML IV SCH (10:17)
[2022-08-09] MEDS ORDERED: INSULIN GLARGINE 100 UNIT/ML SUBCUT ONE (10:22)
[2022-08-09] MEDS: DOCUSATE SODIUM 100 MG CAPSULE PO SCH ×2 (10:51→21:20)
[2022-08-09] MEDS: PIOGLITAZONE 15 MG TABLET PO SCH (12:42)
[2022-08-09] MEDS: ASPIRIN EC 81 MG TABLET PO SCH (21:26)
[2022-08-09] MEDS: AZITHROMYCIN INJ 500 MG in SODIUM CHLORIDE 0.9% 250 ML IV SCH (21:27)
[2022-08-09] MEDS: ROSUVASTATIN 20 MG TABLET PO SCH (21:44)
[2022-08-10] MEDS: INSULIN REGULAR 100 UNIT/ML SUBCUT SCH ×5 (00:36→20:46)
[2022-08-10 05:15] LABS: Calcium 8.8 MG/DL (8.5-10.1); Osmolality,Calculated 299.1 MOS/KG (273-304); Potassium 4.4 MMOL/L (3.5-5.1)
[2022-08-10] MEDS: LEVOTHYROXINE 75 MCG TABLET PO SCH (05:37)
[2022-08-10 05:46] LABS: Basophils % 0.1 % (0.0-0.8); Hematocrit 31.4 VOL% (42.0-52.0); Immature Granulocytes % 0.6 %; Immature Granulocytes Absolute 0.08 #; Lymphocytes # 0.3 10*3/uL (1.4-4.0); Lymphocytes % 1.8 % (21.2-54.2); Mean Corpuscular HGB Conc 28.7 GM/DL (32-36); Mean Corpuscular Volume 83.3 FL (87-102); Mean Platelet Volume 10.1 FL (9.6-12.0); Monocytes # 0.3 10*3/uL (0.11-0.8); Neutrophils % 95.5 % (38.7-73.9); Platelet Count 374 T/CUMM (130-400); Red Blood Count 3.77 MC/CUMM (3.8-5.5); Red Cell Distribution Width 19.4 % (9.3-17.3); White Blood Count 13.7 T/CUMM (4-12)
[2022-08-10 05:51] LABS: Anisocytosis 1+; Band Neutrophils 5 % (0-10); Lymphocytes 1 % (20-55); Platelet Estimate Normal; Target Cells Few; Total Cells Counted 100
[2022-08-10 05:52] LABS: Ovalocytes Few
[2022-08-10] MEDS: IPRATROPIUM 500 MCG/2.5 ML NEB RESP TX SCH ×3 (07:30→23:07)
[2022-08-10] MEDS ORDERED: LIDOCAINE 5% PATCH TRANSDERM SCH (09:30)
[2022-08-10] MEDS: FAMOTIDINE 20 MG TABLET PO SCH ×2 (10:06→20:45)
[2022-08-10] MEDS: TICAGRELOR 90 MG TABLET PO SCH ×2 (10:06→20:45)
[2022-08-10] MEDS: GLIMEPIRIDE 4 MG TABLET PO SCH ×2 (10:06→20:45)
[2022-08-10] MEDS: DAPAGLIFLOZIN 10 MG TABLET PO SCH (10:06)
[2022-08-10] MEDS: PANTOPRAZOLE 40 MG TABLET PO SCH (10:06)
[2022-08-10] MEDS: PIOGLITAZONE 15 MG TABLET PO SCH (10:06)
[2022-08-10] MEDS: carvediloL 6.25 MG TABLET PO SCH ×2 (10:06→20:45)
[2022-08-10] MEDS: hydrALAZINE 25 MG TABLET PO SCH ×2 (10:06→20:46)
[2022-08-10] MEDS: SERTRALINE 50 MG TABLET PO SCH (10:06)
[2022-08-10] MEDS: MONTELUKAST 10 MG TABLET PO SCH (10:07)
[2022-08-10] MEDS: ISOSORBIDE MONONITRATE 30 MG TABLET PO SCH (10:07)
[2022-08-10] MEDS: LORATADINE 10 MG TABLET PO SCH (10:07)
[2022-08-10] MEDS: INSULIN GLARGINE 100 UNIT/ML SUBCUT SCH (10:17)
[2022-08-10] MEDS: DOCUSATE SODIUM 100 MG CAPSULE PO SCH ×2 (10:42→21:49)
[2022-08-10] MEDS: KETOROLAC 15 MG/1 ML VIAL IV SCH (10:43)
[2022-08-10] MEDS: cefTRIAXone 1,000 MG in SODIUM CHLORIDE 0.9% 100 ML IV SCH (10:47)
[2022-08-10] MEDS: methylPREDNISolone SOD SUC 40 MG/1 ML VIAL IV SCH ×2 (10:53→20:49)
[2022-08-10] MEDS: ROSUVASTATIN 20 MG TABLET PO SCH (20:45)
[2022-08-10] MEDS: ASPIRIN EC 81 MG TABLET PO SCH (20:45)
[2022-08-10] MEDS: AZITHROMYCIN INJ 500 MG in SODIUM CHLORIDE 0.9% 250 ML IV SCH (22:20)
[2022-08-11] MEDS: LEVOTHYROXINE 75 MCG TABLET PO SCH (05:37)
[2022-08-11 05:44] LABS: Calcium 8.9 MG/DL (8.5-10.1); Osmolality,Calculated 303.6 MOS/KG (273-304)
[2022-08-11 06:03] LABS: Basophils % 0.1 % (0.0-0.8); Eosinophils % 0.1 % (0.00-10.9); Hematocrit 31.5 VOL% (42.0-52.0); Hemoglobin 9.1 GM/DL (14.0-18.0); Immature Granulocytes % 0.6 %; Immature Granulocytes Absolute 0.08 #; Lymphocytes # 0.5 10*3/uL (1.4-4.0); Lymphocytes % 3.9 % (21.2-54.2); Mean Corpuscular HGB Conc 28.9 GM/DL (32-36); Mean Corpuscular Volume 82.9 FL (87-102); Mean Platelet Volume 10.2 FL (9.6-12.0); Monocytes # 1.2 10*3/uL (0.11-0.8); Monocytes % 8.3 % (1.7-12.7); Platelet Count 389 T/CUMM (130-400); Red Cell Distribution Width 19.3 % (9.3-17.3)
[2022-08-11 06:09] LABS: Lymphocytes 7 % (20-55); Total Cells Counted 100
[2022-08-11 06:10] LABS: Platelet Estimate Normal
[2022-08-11] MEDS: IPRATROPIUM 500 MCG/2.5 ML NEB RESP TX SCH ×3 (07:05→23:30)
[2022-08-11] MEDS: INSULIN REGULAR 100 UNIT/ML SUBCUT SCH ×4 (07:55→21:56)
[2022-08-11] MEDS: DAPAGLIFLOZIN 10 MG TABLET PO SCH (09:54)
[2022-08-11] MEDS: GLIMEPIRIDE 4 MG TABLET PO SCH ×2 (09:54→21:56)
[2022-08-11] MEDS: LORATADINE 10 MG TABLET PO SCH (09:55)
[2022-08-11] MEDS: hydrALAZINE 25 MG TABLET PO SCH ×2 (09:55→21:56)
[2022-08-11] MEDS: PANTOPRAZOLE 40 MG TABLET PO SCH (09:55)
[2022-08-11] MEDS: PIOGLITAZONE 15 MG TABLET PO SCH (09:55)
[2022-08-11] MEDS: ISOSORBIDE MONONITRATE 30 MG TABLET PO SCH (09:55)
[2022-08-11] MEDS: cefTRIAXone 1,000 MG in SODIUM CHLORIDE 0.9% 100 ML IV SCH (09:56)
[2022-08-11] MEDS: TICAGRELOR 90 MG TABLET PO SCH ×2 (09:56→21:56)
[2022-08-11] MEDS: MONTELUKAST 10 MG TABLET PO SCH (09:56)
[2022-08-11] MEDS: FAMOTIDINE 20 MG TABLET PO SCH ×2 (09:56→22:03)
[2022-08-11] MEDS: SERTRALINE 50 MG TABLET PO SCH (09:56)
[2022-08-11] MEDS: DOCUSATE SODIUM 100 MG CAPSULE PO SCH ×2 (09:56→21:56)
[2022-08-11] MEDS: carvediloL 6.25 MG TABLET PO SCH ×2 (09:57→21:56)
[2022-08-11] MEDS: methylPREDNISolone SOD SUC 40 MG/1 ML VIAL IV SCH ×2 (10:04→21:55)
[2022-08-11] MEDS: LIDOCAINE 5% PATCH TRANSDERM SCH (10:05)
[2022-08-11] MEDS: INSULIN GLARGINE 100 UNIT/ML SUBCUT SCH (10:07)
[2022-08-11] MEDS ORDERED: IPRATROPIUM 500 MCG/2.5 ML NEB RESP TX PRN (11:44)
[2022-08-11] MEDS ORDERED: methylPREDNISolone SOD SUC 40 MG/1 ML VIAL IV ONE (12:09)
[2022-08-11] MEDS: AZITHROMYCIN INJ 500 MG in SODIUM CHLORIDE 0.9% 250 ML IV SCH (21:50)
[2022-08-11] MEDS: ENOXAPARIN 40 MG/0.4 ML SYRINGE SUBCUT SCH (21:54)
[2022-08-11] MEDS: ASPIRIN EC 81 MG TABLET PO SCH (21:56)
[2022-08-11] MEDS: ROSUVASTATIN 20 MG TABLET PO SCH (21:56)
[2022-08-12 04:48] LABS: Basophils % 0.1 % (0.0-0.8); Hematocrit 30.4 VOL% (42.0-52.0); Immature Granulocytes % 0.9 %; Immature Granulocytes Absolute 0.11 #; Lymphocytes # 0.2 10*3/uL (1.4-4.0); Lymphocytes % 1.8 % (21.2-54.2); Mean Corpuscular HGB Conc 29.6 GM/DL (32-36); Mean Corpuscular Volume 81.9 FL (87-102); Mean Platelet Volume 10.3 FL (9.6-12.0); Monocytes # 0.4 10*3/uL (0.11-0.8); Monocytes % 3.2 % (1.7-12.7); Platelet Count 359 T/CUMM (130-400); Red Blood Count 3.71 MC/CUMM (3.8-5.5); Red Cell Distribution Width 19.3 % (9.3-17.3); White Blood Count 12.8 T/CUMM (4-12)
[2022-08-12 05:13] LABS: Hypochromia Slight; Lymphocytes 2 % (20-55); Microcytosis Slight; Platelet Estimate Adequate; Total Cells Counted 100
[2022-08-12 05:15] LABS: Calcium 8.8 MG/DL (8.5-10.1); Osmolality,Calculated 295.8 MOS/KG (273-304); Potassium 4.2 MMOL/L (3.5-5.1)
[2022-08-12] MEDS: LEVOTHYROXINE 75 MCG TABLET PO SCH (05:58)
[2022-08-12] MEDS: IPRATROPIUM 500 MCG/2.5 ML NEB RESP TX SCH ×3 (07:15→23:55)
[2022-08-12] MEDS: methylPREDNISolone SOD SUC 40 MG/1 ML VIAL IV SCH ×2 (09:22→20:49)
[2022-08-12] MEDS: INSULIN REGULAR 100 UNIT/ML SUBCUT SCH ×3 (09:23→16:31)
[2022-08-12] MEDS: cefTRIAXone 1,000 MG in SODIUM CHLORIDE 0.9% 100 ML IV SCH (09:23)
[2022-08-12] MEDS: hydrALAZINE 25 MG TABLET PO SCH ×2 (09:24→20:49)
[2022-08-12] MEDS: SERTRALINE 50 MG TABLET PO SCH (09:24)
[2022-08-12] MEDS: PIOGLITAZONE 15 MG TABLET PO SCH (09:24)
[2022-08-12] MEDS: TICAGRELOR 90 MG TABLET PO SCH ×2 (09:24→20:49)
[2022-08-12] MEDS: PANTOPRAZOLE 40 MG TABLET PO SCH (09:24)
[2022-08-12] MEDS: LORATADINE 10 MG TABLET PO SCH (09:24)
[2022-08-12] MEDS: DAPAGLIFLOZIN 10 MG TABLET PO SCH (09:24)
[2022-08-12] MEDS: GLIMEPIRIDE 4 MG TABLET PO SCH ×2 (09:24→20:49)
[2022-08-12] MEDS: MONTELUKAST 10 MG TABLET PO SCH (09:24)
[2022-08-12] MEDS: ISOSORBIDE MONONITRATE 30 MG TABLET PO SCH (09:24)
[2022-08-12] MEDS: carvediloL 6.25 MG TABLET PO SCH ×2 (09:25→20:49)
[2022-08-12] MEDS: FAMOTIDINE 20 MG TABLET PO SCH ×2 (09:25→20:49)
[2022-08-12] MEDS: DOCUSATE SODIUM 100 MG CAPSULE PO SCH ×2 (09:25→20:49)
[2022-08-12] MEDS: INSULIN GLARGINE 100 UNIT/ML SUBCUT SCH (09:26)
[2022-08-12] MEDS: LIDOCAINE 5% PATCH TRANSDERM SCH (11:35)
[2022-08-12] MEDS: FLUTICASONE 50 MCG NASAL SPRAY 16 GM BOTTLE BOTH NARES SCH (20:48)
[2022-08-12] MEDS: ASPIRIN EC 81 MG TABLET PO SCH (20:49)
[2022-08-12] MEDS: ROSUVASTATIN 20 MG TABLET PO SCH (20:49)
[2022-08-12] MEDS: guaiFENesin 200 MG/10 ML UDCUP PO PRN (20:49)
[2022-08-12] MEDS: ENOXAPARIN 40 MG/0.4 ML SYRINGE SUBCUT SCH (20:58)
[2022-08-13] MEDS: INSULIN REGULAR 100 UNIT/ML SUBCUT SCH ×3 (00:12→14:11)
[2022-08-13] MEDS: LEVOTHYROXINE 75 MCG TABLET PO SCH (06:17)
[2022-08-13] MEDS: guaiFENesin 200 MG/10 ML UDCUP PO PRN ×2 (06:19→15:26)
[2022-08-13] MEDS: IPRATROPIUM 500 MCG/2.5 ML NEB RESP TX SCH ×2 (07:30→15:05)
[2022-08-13] MEDS: INSULIN GLARGINE 100 UNIT/ML SUBCUT SCH (08:38)
[2022-08-13] MEDS: FAMOTIDINE 20 MG TABLET PO SCH (08:44)
[2022-08-13] MEDS: DOCUSATE SODIUM 100 MG CAPSULE PO SCH (08:44)
[2022-08-13] MEDS: GLIMEPIRIDE 4 MG TABLET PO SCH (08:45)
[2022-08-13] MEDS: MONTELUKAST 10 MG TABLET PO SCH (08:45)
[2022-08-13] MEDS: PANTOPRAZOLE 40 MG TABLET PO SCH (08:45)
[2022-08-13] MEDS: TICAGRELOR 90 MG TABLET PO SCH (08:45)
[2022-08-13] MEDS: PIOGLITAZONE 15 MG TABLET PO SCH (08:45)
[2022-08-13] MEDS: ISOSORBIDE MONONITRATE 30 MG TABLET PO SCH (08:45)
[2022-08-13] MEDS: SERTRALINE 50 MG TABLET PO SCH (08:45)
[2022-08-13] MEDS: DAPAGLIFLOZIN 10 MG TABLET PO SCH (08:45)
[2022-08-13] MEDS: LORATADINE 10 MG TABLET PO SCH (08:45)
[2022-08-13] MEDS: carvediloL 6.25 MG TABLET PO SCH (08:46)
[2022-08-13] MEDS: cefTRIAXone 1,000 MG in SODIUM CHLORIDE 0.9% 100 ML IV SCH (08:46)
[2022-08-13] MEDS: hydrALAZINE 25 MG TABLET PO SCH (08:46)
[2022-08-13] MEDS: methylPREDNISolone SOD SUC 40 MG/1 ML VIAL IV SCH (08:46)
[2022-08-13] MEDS: LIDOCAINE 5% PATCH TRANSDERM SCH (08:51)
[2022-08-13] MEDS: FLUTICASONE 50 MCG NASAL SPRAY 16 GM BOTTLE BOTH NARES SCH (08:51)
[2022-08-13 14:36] VITALS: BP 130/68
[2022-08-13] MEDS ORDERED: MECLIZINE 25 MG TABLET PO SCH (21:00)
== END 2022-08-13 16:10 | DRG 291 ==
LOC: EDBD → EDUNIT# → N.EDINP 12:56 → N.SDSINP 12:56 → N.ED 12:56 → N.2W 16:46 → N.5E 08-09 15:04 → N.2E 08-13 11:06
PROVIDERS: ADMIT Internal Medicine; ATTEND Internal Medicine